=== PATIENT | male | born 1950 | race Two or more races ===

== ENCOUNTER → 2023-11-29 | Outpatient (CLI) | payer OTHER ==
[2023-11-29 09:32] LABS: Urine Bacteria None Seen /hpf (None Seen)
[2023-11-29 09:58] LABS: Urine Blood TRACE /uL (Negative); Urine Clarity Clear (Clear); Urine Color Yellow (Yellow); Urine Protein, UAD Negative (Negative); Urine Specific Gravity 1.021 (1.001-1.035); Urine Urobilinogen Normal (Negative); Urine WBC 2 /hpf (0 - 3)
[2023-11-29 10:14] LABS: Basophils # (auto) 0 10 ^3/uL (0-0.2); Basophils % (auto) 0.4 % (0.0-2.0); Eosinophils # (auto) 0.2 10 ^3/uL (0-0.8); Eosinophils % (auto) 2.1 % (0.0-7.0); Hematocrit 37.6 % (41.0-53.0); Hemoglobin 12.4 g/dL (13.5-17.5); Lymphocytes % (auto) 11.3 % (10.0-50.0); Mean Corpuscular Hemoglobin 28.4 pg (28.0-32.0); Mean Corpuscular Hgb Conc. 32.9 g/dL (32.0-36.0); Mean Corpuscular Volume 86.4 fL (80.0-100.0); Monocytes # (auto) 0.8 10 ^3/uL (0-1.3); Monocytes % (auto) 9.3 % (0.0-12.0); Neutrophils % (auto) 76.9 % (37.0-80.0); Platelet Count (auto) 524 10^3/uL (140-450); Red Blood Cells 4.35 10^6/uL (4.5-5.90); Red Cell Distribution Width 15.6 % (11.8-14.3)
[2023-11-29 10:26] LABS: Alanine Aminotransferase 10 U/L (7-40); Albumin 3.8 g/dL (3.2-4.8); Alkaline Phosphatase 73 U/L (46-116); Anion Gap 2 (5-15); Aspartate Aminotransferase 9 U/L (13-40); BUN/Creatinine Ratio 15.4 (10.0-20.0); Blood Urea Nitrogen 14 mg/dL (9-23); Calcium 9.2 mg/dL (8.7-10.4); Carbon Dioxide 29 mmol/L (20-30); Chloride 105 mmol/L (98-107); Cholesterol 122 mg/dL (< 200); Glucose 110 mg/dL (74-106); HDL Cholesterol 32 mg/dL (40-59); LDL Cholesterol 82 mg/dL (< 100); Magnesium 2.1 mg/dL (1.6-2.6); Potassium 4.4 mmol/L (3.5-5.1); Sodium 136 mmol/L (136-145); Triglycerides 55 mg/dL (< 150)
[2023-11-29 10:27] LABS: Bilirubin, Total 0.5 mg/dL (0.2-1.0); Total Protein 6.9 g/dL (5.7-8.2)
[2023-11-29 10:48] LABS: Prostate Specific Antigen 10.58 ng/mL (0.0-4.0)
[2023-11-29 10:51] LABS: Folate (Folic Acid) 17.6 ng/mL (>5.38)
[2023-11-29 11:10] LABS: Uric Acid 5.2 mg/dL (3.7-9.2)
== END | disposition home or self-care (01) ==
LOC: LAB 09:12
PROVIDERS: ATTEND Internal Medicine
DX: R73.09 Other abnormal glucose (principal); R97.20 Elevated prostate specific antigen [PSA]
CPT/HCPCS: 36415; 80053; 80061; 81001; 82306; 82607; 82746; 83036; 83735; 84153; 84443; 84550; 85025; 87086

== ENCOUNTER 2024-02-07 08:47 | Day surgery (SDC) | payer OTHER ==
[2024-02-02 12:32] LABS: Basophils # (auto) 0.1 10 ^3/uL (0-0.2); Basophils % (auto) 0.6 % (0.0-2.0); Eosinophils # (auto) 0.1 10 ^3/uL (0-0.8); Eosinophils % (auto) 1.2 % (0.0-7.0); Hematocrit 33.2 % (41.0-53.0); Hemoglobin 10.9 g/dL (13.5-17.5); Lymphocytes # (auto) 1.2 10 ^3/uL (0.4-5.4); Lymphocytes % (auto) 12.7 % (10.0-50.0); Mean Corpuscular Hemoglobin 27.9 pg (28.0-32.0); Mean Corpuscular Hgb Conc. 32.9 g/dL (32.0-36.0); Mean Corpuscular Volume 84.9 fL (80.0-100.0); Monocytes # (auto) 0.9 10 ^3/uL (0-1.3); Monocytes % (auto) 9.7 % (0.0-12.0); Neutrophils # (auto) 7.2 10 ^3/uL (1.6-8.6); Neutrophils % (auto) 75.8 % (37.0-80.0); Platelet Count (auto) 591 10^3/uL (140-450); Red Blood Cells 3.91 10^6/uL (4.5-5.90); Red Cell Distribution Width 16.8 % (11.8-14.3); White Blood Cell 9.6 10^3/uL (4.4-10.8)
[2024-02-02 12:48] LABS: INR 1.08 (0.9-1.15); Prothrombin Time 11.4 sec (9.3-11.8)
[2024-02-02 13:22] LABS: Alanine Aminotransferase 23 U/L (7-40); Albumin 3.9 g/dL (3.2-4.8); Alkaline Phosphatase 78 U/L (46-116); Anion Gap 5 (5-15); Aspartate Aminotransferase 20 U/L (13-40); BUN/Creatinine Ratio 15.7 (10.0-20.0); Blood Urea Nitrogen 14 mg/dL (9-23); Calcium 9.2 mg/dL (8.7-10.4); Carbon Dioxide 28 mmol/L (20-31); Chloride 103 mmol/L (98-107); Glucose 96 mg/dL (74-106); Potassium 4.6 mmol/L (3.5-5.1); Sodium 136 mmol/L (136-145)
[2024-02-02 13:23] LABS: Bilirubin, Total 0.3 mg/dL (0.2-1.0); Total Protein 7.5 g/dL (5.7-8.2)
[~2024-02-07] VITALS: Ht 188 cm; Wt 80.7 kg
[~2024-02-07 08:47] MED LIST: PRAZ1CAP2 PO; TAMS-35 PO
[2024-02-07] MEDS ORDERED: SODIUM CHLORIDE LOCK 10 ML ONE (09:39)
[2024-02-07 10:10] VITALS: PULSE 75; RESP 19; O2SAT 99
[2024-02-07] MEDS: fentaNYL CITRATE 100 MCG/2 ML VL ONE (10:11)
[2024-02-07] MEDS: MIDAZOLAM HCL 5 MG/ML-1ML VIAL ONE (10:11)
[2024-02-07 10:35] VITALS: PULSE 72; RESP 22; TEMP 99; O2SAT 100
[2024-02-07 11:00] VITALS: BP 106/56; PULSE 71; RESP 98; O2SAT 100
== END 2024-02-07 11:15 | disposition home or self-care (01) ==
LOC: GI 08:47
PROVIDERS: ATTEND Specialist
DX: D64.9 Anemia, unspecified (principal); D12.4 Benign neoplasm of descending colon; D12.3 Benign neoplasm of transverse colon; K57.30 Diverticulosis of large intestine without perforation or abscess without bleeding; K64.8 Other hemorrhoids; K44.9 Diaphragmatic hernia without obstruction or gangrene; Z79.899 Other long term (current) drug therapy; Z90.89 Acquired absence of other organs; Z98.890 Other specified postprocedural states
CPT/HCPCS: 36415; 45380; 45385; 80053; 85025; 85610; 85730; 88305; J2250; J3010; J7030; 99152

== ENCOUNTER 2024-06-04 12:13 | Inpatient (IN) | payer OTHER ==
[~2024-06-04] VITALS: Ht 188 cm; Wt 75.7 kg
[2024-06-04] MEDS: PANTOPRAZOLE 40 MG/10 ML VIAL INJ IV ONE (12:42)
[2024-06-04] MEDS: ONDANSETRON HCL 4 MG/2 ML VIAL IV ONE (12:42)
[2024-06-04] MEDS: MORPHINE SULFATE 4 MG/ML SYR/VIAL IV ONE (12:43)
[2024-06-04] MEDS: SODIUM CHLORIDE 0.9% 1,000 ML IV ONE ×2 (12:43→21:30)
[2024-06-04 12:56] LABS: Urine Bacteria None Seen /hpf (None Seen)
--- NOTE | 2024-06-04 13:05 | ED.PDOC ---
GI ASSESSMENT HPI Comments 74 y.o male with PMHx of BPH, depression, diverticulitis and perforated ulcer, presents to the ED for a chief complaint of lower abdominal pain that has been ongoing for " a long time" but worsened x 3 days. Patient reports pain is constant, non radiating, and has no alleviating or precipitating factors. Patient had 2 episodes of non bloody emesis today. Patient was seen multiple times for this complaint by PCP and had a colonoscopy done. Patient was then diagnosed with diverticulitis. Patient denies any diarrhea, constipation, fever, chills, dysuria, rectal bleeding, or dysuria. Patient has been taking peptobismol and last normal bowel movement was one day ago. Chief Complaint: Abdominal Pain Time Seen by MD: 12:17 Reviewed Notes: Nurses Notes, Medications, Allergies Allergies: Coded Allergies: NO KNOWN ALLERGIES (Unverified , 02/02/24) Home Meds Reported Medications Prazosin Hcl (Minipres) 1 Mg Cp, 1 MG PO DAILY, CAP 02/02/24 Tamsulosin Hcl (Flomax) 0.4 Mg Cap, 0.4 MG PO da, CAP 02/02/24 Information Source: Patient Mode of Arrival: Ambulatory Timing: Came on: Gradually Duration: Since onset Quality: Aching Vomitus: Soft Stool: Normal Severity: Moderate Recent: None Recent Hx of: None Pain Location: Suprapubic Modifying Factors: Nothing Associated sign and symptoms: Vomiting, Abdominal Pain Past Medical History PAST MEDICAL HISTORY: Depression Past Medical History (Other): BPH, perforated ulcer, diverticulitis Surgical History (Other): perforated ulcer and colonoscopy Family History Family History: Reviewed,noncontributory to illness Social History Smoker: Non-Smoker Alcohol: Denies ETOH Use Drugs: Denies Drug Use Lives In: Home Constitutional: denies: chills, diaphoresis, fatigue, fever, malaise, sweats, weakness, others EENTM: denies: blurred vision, double vision, ear bleeding, ear discharge, ear drainage, ear pain, ear ringing, eye pain, eye redness, hearing loss, mouth pain, mouth swelling, nasal discharge, nose bleeding, nose congestion, nose pain, photophobia, tearing, throat pain, throat swelling, voice changes, others Respiratory: denies: cough, hemoptysis, orthopnea, SOB at rest, shortness of breath, SOB with excertion, stridor, wheezing, others Cardiovascular: denies: chest pain, dizzy spells, diaphoresis, Dyspnea on exertion, edema, irregular heart beat, left arm pain, lightheadedness, palpitations, PND, syncope, others Gastrointestinal: reports: abdominal pain, vomiting; denies: abdomen distended, blood streaked bowels, constipated, diarrhea, dysphagia, difficulty swallowing, hematemesis, melena, nausea, poor appetite, poor fluid intake, rectal bleeding, rectal pain, others Genitourinary: denies: burning, dysuria, flank pain, frequency, hematuria, incontinence, penile discharge, penile sore, pain, testicle pain, testicle swelling, urgency, others Neurological: denies: dizziness, fainting, headache, left sided numbness, left sided weakness, numbness, paresthesia, pre-existing deficit, right sided n umbness, right sided weakness, seizure, speech problems, tingling, tremors, weakness, others Musculoskeletal: denies: back pain, gout, joint pain, joint swelling, muscle pain, muscle stiffness, neck pain, others Integumetry: denies: bruises, change in color, change in hair/nails, dryness, laceration, lesions, lumps, rash, wounds, others Allergic/Immunocompromised: denies: Difficulty Healing, Frequent Infections, Hives, Itching, others Hematologic/Lymphatic: denies: anemia, blood clots, easy bleeding, easy bruising, swollen glands, others Endocrine: denies: excessive hunger, excessive sweating, excessive thirst, excessive urination, flushing, intolerance to cold, intolerance to heat, unexplained weight gain, unexplained weight loss, others Psychiatric: denies: anxiety, bipolar disorder, depression, hopeless, panic disorder, schizophrenia, sleepless, suicidal, others All Other Systems: Reviewed and Negative Physical Exam General Appearance: No Apparent Distress HEENT: Other (Pupils and face symmetric. Moist mucous membranes.) Neck: Full Range of Motion, Normal Inspection Respiratory: Lungs Clear, No Accessory Muscle Use, No Respiratory Distress, Normal Breath Sounds Cardiovascular: No Edema, No JVD, Regular Rate/Rhythm Breast Exam: Deferred Gastrointestinal: LLQ, Mass (Large ventral hernia which is soft and partially reducible. This area is nontender.), RLQ, Soft, Suprapubic, Tenderness Genitalia: Deferred Pelvic: Deferred Rectal: Deferred Extremities: Normal inspection, Normal range of motion, Non-tender, No pedal edema Neurologic: Alert (Oriented x4), Normal Affect, Normal Mood, Other (Ambulatory without difficulty. No gross focal deficit.) Cerebellar Function: NOT DONE Reflexes: NOT DONE Skin: Dry, Normal Color, Warm Lymphatic: NOT DONE Was a procedure done? Was a procedure done?: No GI differential Dx Differential Diagnosis: Bowel Obstruction, Diverticular disease, Hernia, Ischemic Bowel, UTI, Dehydration, Electrolyte Imbalance, Food Poisoning, Bacterial, Viral, Hypovolemia, Impaction, Stress Ulcer, Kidney Stone X-Ray, Labs, Meds, VS Vital Signs Date Time Temp Pulse Resp B/P (MAP) Pulse Ox O2 Delivery O2 Flow Rate FiO2 06/04/24 17:05 98.6 91 16 106/58 (74) 97 98.6 06/04/24 13:13 79 18 142/70 06/04/24 12:50 Room Air* 0 21 06/04/24 12:49 98.9 95 18 100/55 (70) 98 98.9 06/04/24 12:43 95 18 100/55 06/04/24 12:26 98.9 105 18 98/55 (69) 94 Lab Test 06/04/24 12:58 06/04/24 12:24 Range/Units White Blood Count 13.8 H 4.4-10.8 10^3/uL Red Blood Count 3.37 L 4.5-5.90 10^6/uL Hemoglobin 8.7 L 13.5-17.5 g/dL Hematocrit 26.9 L 41.0-53.0 % Mean Corpuscular Volume 80.0 80.0-100.0 fL Mean Corpuscular Hemoglobin 25.8 L 28.0-32.0 pg Mean Corpuscular Hemoglobin Concent 32.3 32.0-36.0 g/dL Red Cell Distribution Width 18.6 H 11.8-14.3 % Platelet Count 863 *H 140-450 10^3/uL Mean Platelet Volume 6.4 L 6.9-10.8 fL Neutrophils (%) (Auto) 82.1 H 37.0-80.0 % Lymphocytes (%) (Auto) 7.9 L 10.0-50.0 % Monocytes (%) (Auto) 9.4 0.0-12.0 % Eosinophils (%) (Auto) 0.3 0.0-7.0 % Basophils (%) (Auto) 0.3 0.0-2.0 % Neutrophils # (Auto) 11.3 H 1.6-8.6 10 ^3/uL Lymphocytes # (Auto) 1.1 0.4-5.4 10 ^3/uL Monocytes # (Auto) 1.3 0-1.3 10 ^3/uL Eosinophils # (Auto) 0 0-0.8 10 ^3/uL Basophils # (Auto) 0 0-0.2 10 ^3/uL Nucleated Red Blood Cells 0.0 % Sodium Level 136 136-145 mmol/L Potassium Level 4.5 3.5-5.1 mmol/L Chloride Level 101 98-107 mmol/L Carbon Dioxide Level 28 20-31 mmol/L Anion Gap 7 5-15 Blood Urea Nitrogen 19 9-23 mg/dL Creatinine 0.80 0.700-1.30 mg/dL Glomerular Filtration Rate Calc 92 >90 mL/min BUN/Creatinine Ratio 23.8 H 10.0-20.0 Serum Glucose 107 H 74-106 mg/dL Lactic Acid Level 1.3 0.4-2.0 mmol/L Calcium Level 8.8 8.7-10.4 mg/dL Total Bilirubin 0.3 0.2-1.0 mg/dL Aspartate Amino Transferase (AST) 21 13-40 U/L Alanine Aminotransferase (ALT) 25 7-40 U/L Alkaline Phosphatase 119 H 46-116 U/L Total Protein 6.5 5.7-8.2 g/dL Albumin 3.5 3.2-4.8 g/dL Urine Color Yellow Yellow Urine Clarity Clear Clear Urine pH 6.0 5.0-9.0 Urine Specific [place] 1.022 1.001-1.035 Urine Protein Trace H Negative Urine Ketones Negative Negative Urine Blood Trace H Negative /uL Urine Nitrite Negative Negative Urine Bilirubin Negative Negative Urine Urobilinogen Normal Negative mg/dL Urine Leukocyte Esterase Negative Negative /uL Urine RBC 6 0 - 3 /hpf Urine Microscopic WBC 3 0-3 /HPF Urine Squamous Epithelial Cells None seen <5 /hpf Urine Bacteria None seen None Seen /hpf Urine Mucus Few None Seen Urine Glucose Normal Normal mg/dL Current Medications Medications (Trade) Dose Ordered Sig/Vinnie Route Start Time Stop Time Status Last Admin Sodium Chloride 1,000 ml @ 1,000 mls/hr Q1H ONCE IV 06/04/24 12:30 06/04/24 13:29 DC 06/04/24 12:43 Ondansetron HCl (Zofran) 4 mg ONCE ONCE IV 06/04/24 12:30 06/04/24 12:31 DC 06/04/24 12:42 Morphine Sulfate 4 mg ONCE ONCE IV 06/04/24 12:30 06/04/24 12:31 DC 06/04/24 12:43 Pantoprazole Sodium (Protonix) 40 mg ONCE ONCE IV 06/04/24 12:30 06/04/24 12:31 DC 06/04/24 12:42 [place] [id number] Ph: [phone] DIAGNOSTIC IMAGING Diagnostic Imaging Report : [id number] Signed PATIENT: KARLA CHRISTIANSON ACCT: [id number] UNIT: [id number] : 1950 LOC: ER ROOM / BED: / AGE / SEX: 74 / M ADM STATUS: REG ER SERVICE 1224 ORDERING PHYSICIAN: CAITLIN MOSS MD PROCEDURE(s): ABPL - CT AB PEL WO CON-NO ORAL OR IV REASON: low abd pain h/o diverticulitis ORDER NUMBER(s): [id number], ACCESSION NUMBER(s): [id number] Exam: CT CT AB PEL WO CON-NO ORAL OR IV History: low abd pain h/o diverticulitis Comparison Study: None available at time of dictation. TECHNIQUE: Multidetector CT of the abdomen was performed from lung bases to pubic symphysis. Imaging was performed without IV contrast. Axial, coronal and sagittal multiplanar reformats were obtained from the axial data set by the technologist. Radiation Dose Information: CT Dose: CTDI volume is 7.26 mGy. Dose-length product is 470.45 mGy*cm FINDINGS: Evaluation of solid organs is limited due to lack of intravenous contrast use. Findings: Lung Bases: No acute or significant lung base finding. Normal heart size. No pleural or pericardial effusion. Liver: The liver is normal in size. No focal lesions. Gallbladder and Biliary Tree: Unremarkable Spleen: Unremarkable Pancreas: The pancreas is grossly normal in appearance. Adrenal Glands: Unremarkable Kidneys: 4 mm calculus lower pole left kidney no hydronephrosis. 7 x 5 cm non cystic lobulated abnormality lower pole left kidney can not exclude neoplasm recommend contrast CT of the abdomen and pelvis or renal ultrasound. Bladder: Grossly unremarkable for degree of distention. Bowel: The stomach is grossly normal in appearance. Small bowel and colon are normal in caliber and distribution. The appendix is not visualized; however, no secondary findings of acute appendicitis identified. Ascites: Absent Lymphadenopathy: No mesenteric, retroperitoneal or periportal lymphadenopathy. Abdominal Wall and Mesentery: Unremarkable. Vasculature: The visualized abdominal aorta is normal in size and caliber. Evaluation of abdominal and pelvic vessels is limited due to lack of intravenous contrast. Pelvic Organs: Unremarkable Musculoskeletal: No aggressive focal bony lesions, acute fractures or dislocation. Soft tissues: Unremarkable IMPRESSION: 1. 4 mm nonobstructing calculus lower pole left kidney 2. 7 x 5 cm lobulated NON cystic mass lower pole left kidney recommend contrast CT or renal ultrasound for further evaluation. Findings are worrisome for neoplasm. Radiation optimization: All CT scans at this facility use at least one of these dose optimization techniques: automated exposure control mA and/or kV adjustment per patient size (includes targeted exams where dose is matched to clinical indication) or iterative reconstruction. ATED BY: ALLISON HORNE Jr., DO DICTATED DATE/TIME: 06/04/241404 SIGNED BY: ALLISON HORNE Jr., SIGNED DATE/TIME: 06/04/24 140 CC: X-Ray, Labs, Meds, VS Comment 74-year-old male with a history of BPH, ulcer disease, diverticulitis and depression complaining of lower abdominal pain, nausea and vomiting Vitals remarkable for heart rate 105, BP 98/55 Exam remarkable for lower abdominal tenderness to palpation and a large ventral hernia which is soft and partially reducible and nontender. Rhythm strip independently interpreted by me: Sinus rhythm, rate 105, no ectopy. CT abdomen and pelvis IMPRESSION: 1. 4 mm nonobstructing calculus lower pole left kidney 2. 7 x 5 cm lobulated NON cystic mass lower pole left kidney recommend contrast CT or renal ultrasound for further evaluation. Findings are worrisome for neoplasm. CBC remarkable for WBC 13.8, hemoglobin 8.7, hematocrit 26.9, platelets 863, metabolic panel unremarkable, UA unremarkable Patient treated with the following in the ED: 1 L 0.9 normal saline IV bolus, morphine 4 mg IV, Zofran 4 mg IV, Protonix 40 mg IV On re-evaluation, patient states pain has improved. Vitals were stable. Plan is to admit the patient for further evaluation of the left renal mass and for further evaluation of anemia and thrombocytosis Time of 1ST Reevaluation: 12:59 Reevaluation 1ST: Unchanged Patient Education/Counseling: Diagnosis, Treatment, Prognosis Family Education/Counseling: No Family Present Departure 1 Departure Time of Disposition: 18:47 Impression: Primary Impression: Left renal mass Additional Impressions: Anemia Qualified Codes: D64.9 - Anemia, unspecified Thrombocytosis Disposition: ADMITTED INPATIENT Admit to: Med Surg Condition: Guarded Critical Care Note Critical Care Time?: No Stability Stability form required: No Heart Score Heart Score: Heart Score Response (Comments) Value History N/A 0 EKG N/A 0 Age N/A 0 Risk Factors N/A 0 Troponin N/A 0 Total 0 I personally scribed for CAITLIN MOSS MD ([facility]) on 06/04/24 at 13:05. Electronically submitted by Kayleigh Morris ([facility]). I personally scribed for CAITLIN MOSS MD ([facility]) on 06/04/24 at 15:08. Electronically submitted by Kayleigh Morris ([facility]). CAITLIN MOSS MD Jun 04, 2024 13:05
[2024-06-04 13:21] LABS: Basophils # (auto) 0 10 ^3/uL (0-0.2); Eosinophils # (auto) 0 10 ^3/uL (0-0.8); Eosinophils % (auto) 0.3 % (0.0-7.0); Lymphocytes # (auto) 1.1 10 ^3/uL (0.4-5.4)
[2024-06-04 13:24] LABS: Basophils % (auto) 0.3 % (0.0-2.0); Hematocrit 26.9 % (41.0-53.0); Hemoglobin 8.7 g/dL (13.5-17.5); Lymphocytes % (auto) 7.9 % (10.0-50.0); Mean Corpuscular Hemoglobin 25.8 pg (28.0-32.0); Mean Corpuscular Hgb Conc. 32.3 g/dL (32.0-36.0); Monocytes # (auto) 1.3 10 ^3/uL (0-1.3); Monocytes % (auto) 9.4 % (0.0-12.0); Neutrophils # (auto) 11.3 10 ^3/uL (1.6-8.6); Neutrophils % (auto) 82.1 % (37.0-80.0); Red Blood Cells 3.37 10^6/uL (4.5-5.90); Red Cell Distribution Width 18.6 % (11.8-14.3); White Blood Cell 13.8 10^3/uL (4.4-10.8)
[2024-06-04 13:25] LABS: Platelet Count (auto) 863 10^3/uL (140-450)
[2024-06-04 13:28] LABS: Urine Blood TRACE /uL (Negative); Urine Clarity Clear (Clear); Urine Color Yellow (Yellow); Urine Mucus FEW (None Seen); Urine Protein, UAD TRACE (Negative); Urine Specific Gravity 1.022 (1.001-1.035); Urine Squamous Epithelial Cell None Seen /hpf (<5); Urine Urobilinogen Normal (Negative); Urine WBC 3 /HPF (0-3)
[2024-06-04 13:42] LABS: Alanine Aminotransferase 25 U/L (7-40); Albumin 3.5 g/dL (3.2-4.8); Anion Gap 7 (5-15); Aspartate Aminotransferase 21 U/L (13-40); BUN/Creatinine Ratio 23.8 (10.0-20.0); Blood Urea Nitrogen 19 mg/dL (9-23); Calcium 8.8 mg/dL (8.7-10.4); Carbon Dioxide 28 mmol/L (20-31); Chloride 101 mmol/L (98-107); Potassium 4.5 mmol/L (3.5-5.1); Total Protein 6.5 g/dL (5.7-8.2)
[2024-06-04 13:53] LABS: Alkaline Phosphatase 119 U/L (46-116); Bilirubin, Total 0.3 mg/dL (0.2-1.0); Glucose 107 mg/dL (74-106); Sodium 136 mmol/L (136-145)
--- NOTE | 2024-06-04 14:07 | DVH ---
Exam: CT CT AB PEL WO CON-NO ORAL OR IV History: low abd pain h/o diverticulitis Comparison Study: None available at time of dictation. TECHNIQUE: Multidetector CT of the abdomen was performed from lung bases to pubic symphysis. Imaging was performed without IV contrast. Axial, coronal and sagittal multiplanar reformats were obtained fr om the axial data set by the technologist. Radiation Dose Information: CT Dose: CTDI volume is 7.26 mGy. Dose-length product is 470.45 mGy*cm FINDINGS: Evaluation of solid organs is limited due to lack of intravenous contrast use. Findings: Lung Bases: No acute or significant lung base finding. Normal heart size. No pleural or pericardial effusion. Liver: The liver is normal in size. No focal lesions. Gallbladder and Biliary Tree: Unremarkable Spleen: Unremarkable Pancreas: The pancreas is grossly normal in appearance. Adrenal Glands: Unremarkable Kidneys: 4 mm calculus lower pole left kidney no hydronephrosis. 7 x 5 cm non cystic lobulated abnor mality lower pole left kidney can not exclude neoplasm recommend contrast CT of the abdomen and pelvi s or renal ultrasound. Bladder: Grossly unremarkable for degree of distention. Bowel: The stomach is grossly normal in appearance. Small bowel and colon are normal in caliber and d istribution. The appendix is not visualized; however, no secondary findings of acute appendicitis id entified. Ascites: Absent Lymphadenopathy: No mesenteric, retroperitoneal or periportal lymphadenopathy. Abdominal Wall and Mesentery: Unremarkable. Vasculature: The visualized abdominal aorta is normal in size and caliber. Evaluation of abdominal a nd pelvic vessels is limited due to lack of intravenous contrast. Pelvic Organs: Unremarkable Musculoskeletal: No aggressive focal bony lesions, acute fractures or dislocation. Soft tissues: Unremarkable IMPRESSION: 1. 4 mm nonobstructing calculus lower pole left kidney 2. 7 x 5 cm lobulated NON cystic mass lower pole left kidney recommend contrast CT or renal ultrasoun d for further evaluation. Findings are worrisome for neoplasm. Radiation optimization: All CT scans at this facility use at least one of these dose optimization charity hniques: automated exposure control mA and/or kV adjustment per patient size (includes targeted exam s where dose is matched to clinical indication) or iterative reconstruction.
[2024-06-04 22:45] LABS: Erythrocyte Sedimentation Rate 114 mm/hr (0-20)
[2024-06-04] MEDS: HYDROcodone-ACET 10/325MG TAB PO SCH (22:58)
[2024-06-04] MEDS: TAMSULOSIN HYDROCHLORIDE 0.4 MG CAP PO SCH (22:59)
[2024-06-04] MEDS: CIPROFLOXACIN 400MG/200ML 200 ML IV SCH (23:00)
[2024-06-05] VITALS (7 sets, daily range): BP systolic 91–106; BP diastolic 53–64; PULSE 68–91; RESP 14–19; TEMP 97.9–99.7; O2SAT 92–95
[2024-06-05] MEDS: metroNIDAZOLE 500MG/100ML 100 ML IV SCH (00:12)
[2024-06-05] MEDS: CIPROFLOXACIN 400MG/200ML 200 ML IV ONE (00:12)
[2024-06-05] MEDS: SODIUM CHLORIDE 0.9% 1,000 ML IV SCH (00:12)
--- NOTE | 2024-06-05 00:31 | DVHHPRES ---
History of Present Illness Resident Creating Document: SUSAN WEN RESIDENT Reason for Visit: abdominal pain History of Present Illness A 74y old male with PMHx BPH, HTN? who came to the ED due to abdominal pain, the pain is generalized in the lower abdomen and he is being having this pain since jan 2024 after a colonoscopy, but it got worse 2 days before. Pt states that he also had episode of vomiting. He states that he also has being losing 40 pounds for the past year. Denies bloody stools, denies diarrhea, constipation, fever, chills, dysuria or dysuria Home meds: tamsulosin and prazosin Pt has history of laparotomy due to perforated peptic ulcer Pt smoked for 30y and quit 30y ago 1 pack a day Denies any other drugs Review of Systems Constitutional: No: Fever, Chills, Sweats, Weakness, Malaise, Other Eyes: No: Pain, Vision change, Conjunctivae inflammation, Eyelid inflammation, Other, Redness ENT: No: Ear pain, Ear discharge, Nose pain, Nose discharge, Nose congestion, Mouth pain, Mouth swelling, Throat pain, Throat swelling, Other Respiratory: No: Cough, Dry, Shortness of breath, SOB with excertion, Wheezing, Hemoptysis, Pleuritic Pain, Sputum, Wheezing, Other Cardiovascular: No: Chest Pain, Palpitations, Orthopnea, Paroxysmal Noc. Dyspnea, Edema, Lt Headedness, Other Gastrointestinal: No: Nausea, Vomiting, Abdominal Pain, Diarrhea, Constipation, Melena, Hematochezia, Other Genitourinary: No Dysuria, No Frequency, No Incontinence, No Hematuria, No Retention, No Other Musculoskeletal: No: other, neck pain, shoulder pain, arm pain, back pain, hand pain, leg pain, foot pain Skin: No: Rash, Lesions, Jaundice, Bruising, Other Allergies: Coded Allergies: NO KNOWN ALLERGIES (Unverified , 02/02/24) Medications Current Medications Medications Dose Ordered Sig/Vinnie Route Start Time Stop Time Status Last Admin Dose Admin Acetaminophen/ Hydrocodone Bitart 1 tab TID PO 06/04/24 22:00 06/04/24 22:58 1 TAB Morphine Sulfate 1 mg TID PRN IV 06/04/24 21:30 Tamsulosin HCl 0.4 mg DAILY PO 06/04/24 21:30 06/04/24 22:59 0.4 MG Sodium Chloride 1,000 ml @ 100 mls/hr Q10H IV 06/04/24 23:00 Ciprofloxacin 200 ml @ 200 mls/hr Q12HR IV 06/04/24 23:00 UNV Metronidazole 100 ml @ 100 mls/hr Q8HR IV 06/04/24 23:00 Exam Vital Signs Vital Signs Date Time Temp Pulse Resp B/P (MAP) Pulse Ox O2 Delivery O2 Flow Rate FiO2 06/04/24 21:55 98.1 91 18 110/54 (72) 96 98.1 06/04/24 19:19 Room Air 06/04/24 12:50 0 21 General Appearance: Alert, Oriented X3, Cooperative, mild distress HEENT: Atraumatic, PERRLA, EOMI, Other (pale) Respiratory: Clear to auscultation Cardiovascular: Regular rate, Normal S1 Abdominal: Normal bowel sounds, Other (ventral hernia ) Extremities: No clubbing, No cyanosis Skin: No rashes, No breakdown Neuro: Normal gait, Normal speech Psych/Mental Status: Mental status NL, Mood NL Labs/Xrays Labs Test 06/04/24 21:36 06/04/24 12:58 06/04/24 12:24 Range/Units Erythrocyte Sedimentation Rate 114 H 0-20 mm/hr C-Reactive Protein High Sensitivity > 20.00 H <1.0 mg/dL White Blood Count 13.8 H 4.4-10.8 10^3/uL Red Blood Count 3.37 L 4.5-5.90 10^6/uL Hemoglobin 8.7 L 13.5-17.5 g/dL Hematocrit 26.9 L 41.0-53.0 % Mean Corpuscular Volume 80.0 80.0-100.0 fL Mean Corpuscular Hemoglobin 25.8 L 28.0-32.0 pg Mean Corpuscular Hemoglobin Concent 32.3 32.0-36.0 g/dL Red Cell Distribution Width 18.6 H 11.8-14.3 % Platelet Count 863 *H 140-450 10^3/uL Mean Platelet Volume 6.4 L 6.9-10.8 fL Neutrophils (%) (Auto) 82.1 H 37.0-80.0 % Lymphocytes (%) (Auto) 7.9 L 10.0-50.0 % Monocytes (%) (Auto) 9.4 0.0-12.0 % Eosinophils (%) (Auto) 0.3 0.0-7.0 % Basophils (%) (Auto) 0.3 0.0-2.0 % Neutrophils # (Auto) 11.3 H 1.6-8.6 10 ^3/uL Lymphocytes # (Auto) 1.1 0.4-5.4 10 ^3/uL Monocytes # (Auto) 1.3 0-1.3 10 ^3/uL Eosinophils # (Auto) 0 0-0.8 10 ^3/uL Basophils # (Auto) 0 0-0.2 10 ^3/uL Nucleated Red Blood Cells 0.0 % Sodium Level 136 136-145 mmol/L Potassium Level 4.5 3.5-5.1 mmol/L Chloride Level 101 98-107 mmol/L Carbon Dioxide Level 28 20-31 mmol/L Anion Gap 7 5-15 Blood Urea Nitrogen 19 9-23 mg/dL Creatinine 0.80 0.700-1.30 mg/dL Glomerular Filtration Rate Calc 92 >90 mL/min BUN/Creatinine Ratio 23.8 H 10.0-20.0 Serum Glucose 107 H 74-106 mg/dL Lactic Acid Level 1.3 0.4-2.0 mmol/L Calcium Level 8.8 8.7-10.4 mg/dL Total Bilirubin 0.3 0.2-1.0 mg/dL Aspartate Amino Transferase (AST) 21 13-40 U/L Alanine Aminotransferase (ALT) 25 7-40 U/L Alkaline Phosphatase 119 H 46-116 U/L Total Protein 6.5 5.7-8.2 g/dL Albumin 3.5 3.2-4.8 g/dL Urine Color Yellow Yellow Urine Clarity Clear Clear Urine pH 6.0 5.0-9.0 Urine Specific [place] 1.022 1.001-1.035 Urine Protein Trace H Negative Urine Ketones Negative Negative Urine Blood Trace H Negative /uL Urine Nitrite Negative Negative Urine Bilirubin Negative Negative Urine Urobilinogen Normal Negative mg/dL Urine Leukocyte Esterase Negative Negative /uL Urine RBC 6 0 - 3 /hpf Urine Microscopic WBC 3 0-3 /HPF Urine Squamous Epithelial Cells None seen <5 /hpf Urine Bacteria None seen None Seen /hpf Urine Mucus Few None Seen Urine Glucose Normal Normal mg/dL Assessment/Plan Assessment/Plan #Sepsis? #Rule out renal neoplasm #7 x 5 cm lobulated NON cystic mass lower pole left kidney #4 mm nonobstructing calculus lower pole left kidney #Leukocytosis #Anemia #Thrombocytosis Admit Med Surg Regular diet/ npo tomorrow for MRI MRI abdomen/pelvis w/o contrast Tumor markers EPO levels Iron panel Panculture Urology consult due to possible renal neoplasm AB: cipro + metronidazole NS 100 cc/h Pain management Flomax 0.4 mg daily Case discussed with Dr Lobo Time spent on care 23 min Plan discussed with: Patient, Other (rn) My Orders Orders - SUSAN WEN Procedure Category Date Status Time Admit ADMIT 06/04/24 Transmitted 21:15 Erythropoietin LAB 06/04/24 In Process 21:17 Carcinoembryonic LAB 06/04/24 In Process Antigen 21:17 Afp Serum Tumor Marker LAB 06/04/24 In Process 21:17 Npo After Midnight DIET 06/05/24 Transmitted Breakfast Hydrocodone-Acet PHA 06/04/24 In Process 10/325mg Tab ([place] 22:00 Morphine Sulfate PHA 06/04/24 In Process Injection 21:30 Tamsulosin PHA 06/04/24 In Process Hydrochloride (Flomax) 21:30 [place] Stain Slide LAB 06/04/24 In Process 21:22 * Urology Consult CONS 06/04/24 Transmitted 22:47 Mri Abd & Plevis W/Wo MRI 06/04/24 Logged Cont 22:47 Sodium Chloride 0.9% PHA 06/04/24 In Process 23:00 Ciprofloxacin PHA 06/04/24 Pending 400mg/200ml (Cipro Iv) 23:00 Metronidazole PHA 06/04/24 In Process 500mg/100ml (Flagyl 23:00 Blood Culture AJAY 06/04/24 In Process 22:54 Stool Bacterial AJAY 06/04/24 Uncollected Culture 22:54 Complete Blood Count LAB 06/06/24 Verified 04:00 Comprehensive LAB 06/06/24 Verified Metabolic Panel 04:00 Date of Service: Jun 04, 2024 Billing Provider: DAKOTA LOBO MD Common Visit Codes: 90585-[id number] INP/OBS CARE (HIGH) Secondary Visit Codes: [id number] CARE PLAN 30 MINUTES SUSAN WEN RESIDENT Jun 05, 2024 00:31 DAKOTA LOBO MD Jun 05, 2024 10:15
[2024-06-05] MEDS: MORPHINE SULFATE INJ 2 MG/ml SYRG IV PRN (01:11)
[2024-06-05] MEDS ORDERED: TAMS1CAP25 PO (05:13)
[2024-06-05] MEDS ORDERED: PRAZ1CAP2 PO (05:13)
[2024-06-05 07:53] LABS: % Iron Saturation 9.7 % (20-55)
--- NOTE | 2024-06-05 09:15 | DVHPNRES ---
Progress Note Date Seen: Jun 05, 2024 Resident Creating Document: LYNNE TRUONG RESIDENT Medical Necessity Reason Pt with a Central, PICC or Fol: No Subjective Review of Systems Patient is a 74-year-old male with past medical history of BPH, diverticulosis, perforated gastric ulcer requiring emergency surgery, abdominal wall hernia, who came in due to abdominal pain. According to the patient, he has been having abdominal pain off and on for the past 1 year, however, his abdominal pain worsened over the last 2 days which is what prompted this visit to the hospital. Patient localizes the pain to the left lower abdomen, intermittent, sharp and dull, 10/10 when present. Patient notes no exacerbating factors, per patient Pepto-Bismol and his peppermint supplements reduce the pain transiently. Current pain was also accompanied with [address] abdomen pelvis showed a 4 mm nonobstructing calculus in the lower pole of left kidney. 7 x 5 cm lobulated non cystic mass in the lower pole of left kidney concerning for neoplasm. Past surgical history: Emergent laparotomy, tonsillectomy Home medications: Prazosin, tamsulosin Past Hospitalization: Denies Social & Personal history: Patient lives with family. Quit smoking 30 years ago, prior to that was smoking 1 pack per day for 25 years. Denies using alcohol. Uses marijuana occasionally, denies using any other drugs. Allergies: Denies Patient seen and examined at bedside. Patient is alert and oriented to time, place person and responding to all questions. General: Reports unintentional weight loss of 40 lb in the past 12 months, fatigue Eyes: No Pain, No Vision change, No Conjunctivae inflammation, No Eyelid inflammation, No Other, No Redness ENT: No Ear pain, No Ear discharge, No Nose pain, No Nose discharge, No Nose congestion, No Mouth pain, No Mouth swelling, No Throat pain, No Throat swelling, No Other Cardiovascular: No Chest Pain, No Palpitations, No Orthopnea, No Paroxysmal No Dyspnea, No Edema, No Lt Headedness, No Other Respiratory: No Cough, No Dry, No Shortness of breath, No SOB with exertion, No Wheezing, No Hemoptysis, No Pleuritic Pain, No Sputum, No Other Gastrointestinal: No Nausea, Vomiting, Abdominal Pain, No Diarrhea, No Constipation, No Melena, No Hematochezia, No Other Genitourinary: No Dysuria, No Frequency, No Incontinence, No Hematuria, No Retention, No Other Musculoskeletal: No other, No neck pain, No shoulder pain, No arm pain, No back pain, No hand pain, No leg pain, No foot pain Skin: No Rash, No Lesions, No Jaundice, No Bruising, No Other Objective vital signs Vital Sign Date Time Temp Pulse Resp B/P (MAP) Pulse Ox O2 Delivery O2 Flow Rate FiO2 06/05/24 05:00 68 14 106/61 06/05/24 05:00 97.9 94 97.9 06/05/24 01:39 Room Air* 0 21 Total Intake and Output 06/04/24 06/04/24 06/05/24 15:00 23:00 07:00 Intake Total 1000 ml 1300 ml Balance 1000 ml 1300 ml medications Current Medications Medications Dose Ordered Sig/Vinnie Route Start Time Stop Time Status Last Admin Dose Admin Acetaminophen/ Hydrocodone Bitart 1 tab TID PO 06/04/24 22:00 06/04/24 22:58 1 TAB Morphine Sulfate 1 mg TID PRN IV 06/04/24 21:30 06/05/24 01:11 1 MG Tamsulosin HCl 0.4 mg DAILY PO 06/04/24 21:30 06/04/24 22:59 0.4 MG Sodium Chloride 1,000 ml @ 100 mls/hr Q10H IV 06/04/24 23:00 06/05/24 00:12 100 MLS/HR Ciprofloxacin 200 ml @ 200 mls/hr Q12HR IV 06/04/24 23:00 Metronidazole 100 ml @ 100 mls/hr Q8HR IV 06/04/24 23:00 06/05/24 05:02 100 MLS/HR Pantoprazole Sodium 40 mg DAILY@0600 PO 06/06/24 06:00 Examination General Appearance: Cooperative. Well developed. Well nourished. NAD Head Exam: Normal inspection Neck Exam: Normal inspection. Non-tender. Normal alignment Pulmonary/Respiratory: Chest non-tender. Clear bilateral breath sounds, no crackles, no wheezing. Cardiovascular/Chest: Regular rate and rhythm. No murmurs. No JVD. Peripheral Pulses: 2+ Radial (R). 2+ Radial (L). 2+ Pedal (R). 2+ Pedal (L) Abdominal Exam: Normal bowel sounds. Soft. Epigastric hernia, reducible and nontender, no visible veins, Nontender. No hepatospenomegaly. No masses Lower extremities: 1+ lower extremity edema Neuro/Mental Status: A&O x4. Coherent. Thoughts/Psych: Normal thought pattern. Appropriate mood and affect. Good judgement and insight Skin Exam: Normal inspection. Normal color. Warm. 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 Sepsis due to above - CT abdomen pelvis: 4 mm nonobstructing calculus lower pole left kidney. 7 x 5 cm lobulated NON cystic mass lower pole left kidney recommend contrast CT or renal ultrasound for further evaluation. Findings are worrisome for neoplasm. - CXR: No acute cardiopulmonary disease - UA: Trace protein, trace blood, urine RBC 6, urine microscopic WBC 3, negative nitrites and leukocyte esterase, no bacteria seen - IV NS 2 L bolus followed by IV NS at 100 cc/hour - IV ciprofloxacin, IV metronidazole - Giltner 10 t.i.d. - urology on board - ordered MRI abdomen and pelvis with and without contrast: Suspicious left renal mass as described above, suspected renal cell carcinoma. Bulky retroperitoneal lymphadenopathy, suspected metastatic disease given the findings in the left kidney. Anemia, likely of chronic disease: MCV 80 - monitor History of benign prostatic hyperplasia - ordered serum PSA - tamsulosin 0.4 mg p.o. daily PUD prophylaxis: protonix 40mg Goals of care: Full code, discussed for >16 minutes on 06/05/2024 Plan discussed with patient Plan discussed with Dr. Duke Plan discussed with: Patient, Other (RN) Date of Service: Jun 05, 2024 Billing Provider: VALE DUKE MD Common Visit Codes: [id number] INP/OBS CARE(HIGH) LYNNE TRUONG RESIDENT Jun 05, 2024 09:15 VALE DUKE MD Jun 12, 2024 11:39
--- NOTE | 2024-06-05 09:35 | DVH ---
Procedure: XY CHEST XRAY 1 VIEW 06/05/2024 08:28 AM Indication: Sepsis Comparison: None TECHNIQUE: XY CHEST XRAY 1 VIEW FINDINGS: Medical devices: None. Cardiomediastinal: The heart is normal in size. Pulmonary vasculature is within normal limits. Athero sclerotic calcification of the aortic arch noted. Lungs: No focal pulmonary opacity is seen. The costophrenic angles are clear. No pneumothorax. Bones/soft tissues: No acute abnormality is noted. IMPRESSION: 1. No acute cardiopulmonary disease.
[2024-06-05] MEDS: PANTOPRAZOLE 40 MG TAB PO ONE (09:39)
--- NOTE | 2024-06-05 10:50 | DVHINCON2 ---
Date of service: Jun 05, 2024 Referring Physician Hospitalist Reason for Consultation renal mass History of Present Illness History Source: Patient, RN Notes, MD Notes Exam Limitations: No limitations HPI 74 year old male with PMH significant for BPH (66gm), diverticulitis, perforated peptic ulcer requiring laparotomy who presents with worsening lower abdominal pain over the past week with associated vomiting. Workup revelaed iron deficiency anemia, leukocytosis, thrombocytosis and and elevated ESR. Non contrast CT demonstrated a 7x5 cm non cystic lobulated lower pole left kidney mass. MRI is pending. Patient reports 40lbs of unintended weight loss over the past year. PSA and tumor markers is pending. He has a history of smoking 1 pack a day for 30 years but quit 30 years ago. Home Meds Reported Medications Prazosin Hcl (Minipres) 1 Mg Cp, 2 MG PO DAILYP, #30 CAP 06/05/24 Tamsulosin HCl (Tamsulosin Hydrochloride) 0.4 Mg Cap, 0.4 MG PO DAILY, CAP 06/05/24 Discontinued Reported Medications Prazosin Hcl (Minipres) 1 Mg Cp, 1 MG PO DAILY, CAP 02/02/24 Tamsulosin Hcl (Flomax) 0.4 Mg Cap, 0.4 MG PO da, CAP 02/02/24 Past Medical History GI: Diverticulosis, GI bleed, Peptic ulcer disease Renal/: Benign prostatic enlarg. Past Surgical History: Laparotomy Smoker: Quit Alocohol: None Drugs: None Domestic Violence: Neg Review of Systems Gastrointestinal: Nausea, Vomiting, Abdominal Pain H&P Exam Vital Signs Vital Signs Date Time Temp Pulse Resp B/P (MAP) Pulse Ox O2 Delivery O2 Flow Rate FiO2 06/05/24 05:00 68 14 106/61 06/05/24 05:00 97.9 94 97.9 06/05/24 01:39 Room Air* 0 21 Labs/Xrays [address] [address] Ph: [phone] DIAGNOSTIC IMAGING Diagnostic Imaging Report : [id number] Signed PATIENT: KARLA CHRISTIANSON ACCT: [id number] UNIT: [id number] : 1950 LOC: ER ROOM / BED: / AGE / SEX: 74 / M ADM STATUS: REG ER SERVICE 1224 ORDERING PHYSICIAN: CAITLIN MOSS MD PROCEDURE(s): ABPL - CT AB PEL WO CON-NO ORAL OR IV REASON: low abd pain h/o diverticulitis ORDER NUMBER(s): [id number], ACCESSION NUMBER(s): [id number] Exam: CT CT AB PEL WO CON-NO ORAL OR IV History: low abd pain h/o diverticulitis Comparison Study: None available at time of dictation. TECHNIQUE: Multidetector CT of the abdomen was performed from lung bases to pubic symphysis. Imaging was performed without IV contrast. Axial, coronal and sagittal multiplanar reformats were obtained from the axial data set by the technologist. Radiation Dose Information: CT Dose: CTDI volume is 7.26 mGy. Dose-length product is 470.45 mGy*cm FINDINGS: Evaluation of solid organs is limited due to lack of intravenous contrast use. Findings: Lung Bases: No acute or significant lung base finding. Normal heart size. No pleural or pericardial effusion. Liver: The liver is normal in size. No focal lesions. Gallbladder and Biliary Tree: Unremarkable Spleen: Unremarkable Pancreas: The pancreas is grossly normal in appearance. Adrenal Glands: Unremarkable Kidneys: 4 mm calculus lower pole left kidney no hydronephrosis. 7 x 5 cm non cystic lobulated abnormality lower pole left kidney can not exclude neoplasm recommend contrast CT of the abdomen and pelvis or renal ultrasound. Bladder: Grossly unremarkable for degree of distention. Bowel: The stomach is grossly normal in appearance. Small bowel and colon are normal in caliber and distribution. The appendix is not visualized; however, no secondary findings of acute appendicitis identified. Ascites: Absent Lymphadenopathy: No mesenteric, retroperitoneal or periportal lymphadenopathy. Abdominal Wall and Mesentery: Unremarkable. Vasculature: The visualized abdominal aorta is normal in size and caliber. E valuation of abdominal and pelvic vessels is limited due to lack of intravenous contrast. Pelvic Organs: Unremarkable Musculoskeletal: No aggressive focal bony lesions, acute fractures or dislocation. Soft tissues: Unremarkable IMPRESSION: 1. 4 mm nonobstructing calculus lower pole left kidney 2. 7 x 5 cm lobulated NON cystic mass lower pole left kidney recommend contrast CT or renal ultrasound for further evaluation. Findings are worrisome for neoplasm. Radiation optimization: All CT scans at this facility use at least one of these dose optimization techniques: automated exposure control mA and/or kV adjustment per patient size (includes targeted exams where dose is matched to clinical indication) or iterative reconstruction. ATED BY: ALLISON HORNE Jr., DO DICTATED DATE/TIME: 06/04/241404 SIGNED BY: ALLISON HORNE Jr., SIGNED DATE/TIME: 06/04/241404 CC: Labs Test 06/05/24 06:58 06/04/24 21:36 06/04/24 12:58 06/04/24 12:24 Range/Units Iron Level 15 L 65-175 ug/dL Total Iron Binding Capacity 154 L 250-425 ug/dL Percent Iron Saturation 9.7 L 20-55 % Erythrocyte Sedimentation Rate 114 H 0-20 mm/hr C-Reactive Protein High Sensitivity > 20.00 H <1.0 mg/dL White Blood Count 13.8 H 4.4-10.8 10^3/uL Red Blood Count 3.37 L 4.5-5.90 10^6/uL Hemoglobin 8.7 L 13.5-17.5 g/dL Hematocrit 26.9 L 41.0-53.0 % Mean Corpuscular Volume 80.0 80.0-100.0 fL Mean Corpuscular Hemoglobin 25.8 L 28.0-32.0 pg Mean Corpuscular Hemoglobin Concent 32.3 32.0-36.0 g/dL Red Cell Distribution Width 18.6 H 11.8-14.3 % Platelet Count 863 *H 140-450 10^3/uL Mean Platelet Volume 6.4 L 6.9-10.8 fL Neutrophils (%) (Auto) 82.1 H 37.0-80.0 % Lymphocytes (%) (Auto) 7.9 L 10.0-50.0 % Monocytes (%) (Auto) 9.4 0.0-12.0 % Eosinophils (%) (Auto) 0.3 0.0-7.0 % Basophils (%) (Auto) 0.3 0.0-2.0 % Neutrophils # (Auto) 11.3 H 1.6-8.6 10 ^3/uL Lymphocytes # (Auto) 1.1 0.4-5.4 10 ^3/uL Monocytes # (Auto) 1.3 0-1.3 10 ^3/uL Eosinophils # (Auto) 0 0-0.8 10 ^3/uL Basophils # (Auto) 0 0-0.2 10 ^3/uL Nucleated Red Blood Cells 0.0 % Sodium Level 136 136-145 mmol/L Potassium Level 4.5 3.5-5.1 mmol/L Chloride Level 101 98-107 mmol/L Carbon Dioxide Level 28 20-31 mmol/L Anion Gap 7 5-15 Blood Urea Nitrogen 19 9-23 mg/dL Creatinine 0.80 0.700-1.30 mg/dL Glomerular Filtration Rate Calc 92 >90 mL/min BUN/Creatinine Ratio 23.8 H 10.0-20.0 Serum Glucose 107 H 74-106 mg/dL Lactic Acid Level 1.3 0.4-2.0 mmol/L Calcium Level 8.8 8.7-10.4 mg/dL Total Bilirubin 0.3 0.2-1.0 mg/dL Aspartate Amino Transferase (AST) 21 13-40 U/L Alanine Aminotransferase (ALT) 25 7-40 U/L Alkaline Phosphatase 119 H 46-116 U/L Total Protein 6.5 5.7-8.2 g/dL Albumin 3.5 3.2-4.8 g/dL Urine Color Yellow Yellow Urine Clarity Clear Clear Urine pH 6.0 5.0-9.0 Urine Specific [place] 1.022 1.001-1.035 Urine Protein Trace H Negative Urine Ketones Negative Negative Urine Blood Trace H Negative /uL Urine Nitrite Negative Negative Urine Bilirubin Negative Negative Urine Urobilinogen Normal Negative mg/dL Urine Leukocyte Esterase Negative Negative /uL Urine RBC 6 0 - 3 /hpf Urine Microscopic WBC 3 0-3 /HPF Urine Squamous Epithelial Cells None seen <5 /hpf Urine Bacteria None seen None Seen /hpf Urine Mucus Few None Seen Urine Glucose Normal Normal mg/dL Microbiology Date/Time Source Procedure Growth Status 06/04/24 12:24 Voided Urine Urine Culture - Preliminary Resulted Assessment/Plan Problem List: (1) Anemia (2) Thrombocytosis (3) Left renal mass (4) BPH (benign prostatic hyperplasia) Plan 74 yo male with a hx of BPH, prior diverticulitis, perforated ulcer and significant weight loss presenting with lower abdominal pain, iron deficiency anemia, and a newly discovered left renal mass concerning for malignancy. MRI abd/pelvis with and without contrast pending. CT chest for metastatic workup if MRI is concerning/confirms malignancy stone does not need intervention at this time BPH - PSA is pending Plan discussed with: Patient, Other CRISTOFER HURST NP Jun 05, 2024 10:50
[2024-06-05] MEDS ORDERED: GADOTERATE MEG 10 MMOL/20ml INJ (0.5MMOL/ml) IV ONE (13:55)
--- NOTE | 2024-06-05 15:31 | DVH ---
CLINICAL HISTORY: 74 years old, Male; ABNORMAL CT. Left renal mass. TECHNIQUE: Multi sequence multi planar MRI images of the abdomen were obtained 2 and after the uneve ntful administration of 20 mL Kaila scan contrast. COMPARISON: CT dated 06/04/2024. FINDINGS: Corresponding to the abnormality described on recent noncontrast enhanced CT, there is a s olid mass in the posterior aspect of the left kidney involving the lower pole, measuring up to 6.5 x 6.5 x 5.3 cm. Mass demonstrates heterogeneous enhancement hypo enhancing compared to the renal parenc hyma highly suspicious for malignancy. There is a simple cyst along the posterior aspect of the right kidney measuring up to 2.5 cm. There is also bulky lymphadenopathy in the periaortic and interaortoc aval stations with the largest lymph nodes measuring up to 5.5 x 3.4 cm. There are also bulky lymph n odes at the hiatus measuring up to 2.0 x 3.3 cm. The liver, spleen, pancreas, and adrenal glands are unremarkable. No gallstones visualized in the gallbladder. No biliary ductal dilatation. There is mil d mesenteric edema. Diffuse body wall edema / anasarca. There is a fat containing supraumbilical vent ral hernia, also containing a small amount of fluid. IMPRESSION: 1. Suspicious left renal mass as described above, suspected renal cell carcinoma. 2. Bulky retroperitoneal lymphadenopathy, suspected metastatic disease given the findings in the left kidney. 3. Additional findings as detailed above.
[2024-06-06] VITALS (7 sets, daily range): BP systolic 107–128; BP diastolic 61–69; PULSE 58–90; RESP 18–20; TEMP 97.9–98.9; O2SAT 18–95
[2024-06-06] MEDS: PANTOPRAZOLE 40 MG TAB PO SCH (05:28)
[2024-06-06 06:44] LABS: Alanine Aminotransferase 22 U/L (7-40); Alkaline Phosphatase 89 U/L (46-116); Anion Gap 8 (5-15); BUN/Creatinine Ratio 14.9 (10.0-20.0); Blood Urea Nitrogen 13 mg/dL (9-23); Calcium 8.8 mg/dL (8.7-10.4); Carbon Dioxide 25 mmol/L (20-31); Chloride 101 mmol/L (98-107)
[2024-06-06 06:45] LABS: Albumin 3.4 g/dL (3.2-4.8); Bilirubin, Total 0.3 mg/dL (0.2-1.0); Total Protein 6.6 g/dL (5.7-8.2)
[2024-06-06 06:47] LABS: Aspartate Aminotransferase 10 U/L (13-40); Glucose 108 mg/dL (74-106); Sodium 134 mmol/L (136-145)
[2024-06-06 06:51] LABS: Basophils # (auto) 0 10 ^3/uL (0-0.2); Eosinophils # (auto) 0.1 10 ^3/uL (0-0.8); Lymphocytes # (auto) 1.2 10 ^3/uL (0.4-5.4); Monocytes # (auto) 1.1 10 ^3/uL (0-1.3)
[2024-06-06 06:55] LABS: Basophils % (auto) 0.4 % (0.0-2.0); Hematocrit 24.3 % (41.0-53.0); Hemoglobin 7.9 g/dL (13.5-17.5); Lymphocytes % (auto) 11.3 % (10.0-50.0); Mean Corpuscular Hgb Conc. 32.3 g/dL (32.0-36.0); Mean Corpuscular Volume 80.4 fL (80.0-100.0); Monocytes % (auto) 10.5 % (0.0-12.0); Neutrophils # (auto) 8.1 10 ^3/uL (1.6-8.6); Neutrophils % (auto) 76.8 % (37.0-80.0); Platelet Count (auto) 683 10^3/uL (140-450); Red Blood Cells 3.02 10^6/uL (4.5-5.90); Red Cell Distribution Width 17.9 % (11.8-14.3); White Blood Cell 10.6 10^3/uL (4.4-10.8)
[2024-06-06 09:07] LABS: Prostate Specific Antigen 10.6 ng/mL (0.0-4.0)
[2024-06-06 09:07] LABS: AFP Serum Tumor Marker <1.8 ng/mL (0.0-8.4)
[2024-06-06 11:07] LABS: Erythropoietin 22.8 mIU/mL (2.6-18.5)
--- NOTE | 2024-06-06 11:18 | ECG ---
[facility] Test Date: 2024-06-05 Test Time: 11:31:48 Pat Name: KARLA CHRISTIANSON Department: Respiratoy Room: 0251 A Gender: M Operational Risk Manager: : 1950 Requested By: AGA KWONG Order Number: [id number] Reading MD: Roby Shannon Measurements Intervals Scenic Rate: 71 P: 67 OK: 156 QRS: 66 QRSD: 96 T: 62 QT: 403 QTc: 438 Interpretive Statements Sinus rhythm Borderline low voltage, extremity leads Baseline wander in lead(s) V3 Electronically Signed On 06-06-2024 21:33:53 PST by Roby Shannon Please click the below link to view image of tracing.
--- NOTE | 2024-06-06 13:56 | DVH ---
Procedure: CT CHEST WITHOUT CONTRAST Reason for study/Clinical History: metastatsis Comparison Study: None available at time of dictation. Exam Date: 06/06/2024 01:27 PM TECHNIQUE: Multidetector CT of the chest was performed from the lung apices to the upper abdomen with out the use of intravenous contract. Axial, coronal and sagittal multiplanar reformats were performed . Radiation Dose Information: CT Dose: CTDI volume is 6.93 mGy. Dose-length product is 274.91 mGy*cm The dose indicators for CT are the volume Computed Tomography (CT) Dose Index (CTDIvol) and the Dose Length Product (DLP), and are measured in units of mGy and mGy-cm, respectively. These indicators are not patient dose, but values generated from the CT scanner acquisition factors. The report includes radiation exposure data for exposures received during this examination. FINDINGS: Lower neck: 3.3 cm soft-tissue lesion associated with the mid esophagus. Lungs: Mild centrilobular emphysema. No suspicious pulmonary nodule. No focal consolidation. Heart/Vascular Structures: Cardiomegaly. Coronary artery calcifications. Vascular calcifications of t he aorta. Mild to moderate pericardial effusion. Lymph Nodes: Indeterminate subcentimeter bilateral axillary and mediastinal lymph nodes; possibly dagoberto ctive. Pleura: Trace left pleural effusion. Musculoskeletal: No acute osseous abnormality. Soft tissues: Normal. Upper abdomen: Limited portions of the upper abdomen are unremarkable. IMPRESSION: 3.3 cm soft-tissue mass lesion associated with the midesophagus. Differential considerations could in clude esophageal neoplasm. Indeterminate subcentimeter short axis mediastinal lymph nodes and bilateral axillary lymph nodes ; p ossibly reactive. No suspicious pulmonary nodules. [id number] pericardial effusion. Radiation optimization: All CT scans at this facility use at least one of these dose optimization charity hniques: automated exposure control mA and/or kV adjustment per patient size (includes targeted exam s where dose is matched to clinical indication) or iterative reconstruction.
[2024-06-06 14:06] LABS: PSA Free 0.64 ng/mL
[2024-06-06] MEDS ORDERED: MET500T PO (14:33)
[2024-06-06] MEDS ORDERED: CIPR500T4 PO (14:33)
--- NOTE | 2024-06-06 15:46 | DVHPNRES ---
Progress Note Date Seen: Jun 06, 2024 Resident Creating Document: LYNNE TRUONG RESIDENT Medical Necessity Reason Pt with a Central, PICC or Fol: No Subjective Review of Systems Patient is a 74-year-old male with past medical history of BPH, diverticulosis, perforated gastric ulcer requiring emergency surgery, abdominal wall hernia, who came in due to abdominal pain. According to the patient, he has been having abdominal pain off and on for the past 1 year, however, his abdominal pain worsened over the last 2 days which is what prompted this visit to the hospital. Patient localizes the pain to the left lower abdomen, intermittent, sharp and dull, 10/10 when present. Patient notes no exacerbating factors, per patient Pepto-Bismol and his peppermint supplements reduce the pain transiently. Current pain was also accompanied with [address] abdomen pelvis showed a 4 mm nonobstructing calculus in the lower pole of left kidney. 7 x 5 cm lobulated non cystic mass in the lower pole of left kidney concerning for neoplasm. Past surgical history: Emergent laparotomy, tonsillectomy Home medications: Prazosin, tamsulosin Past Hospitalization: Denies Social & Personal history: Patient lives with family. Quit smoking 30 years ago, prior to that was smoking 1 pack per day for 25 years. Denies using alcohol. Uses marijuana occasionally, denies using any other drugs. Allergies: Denies Patient seen and examined at bedside. Patient is alert and oriented to time, place person and responding to all questions. Objective vital signs Vital Sign Date Time Temp Pulse Resp B/P (MAP) Pulse Ox O2 Delivery O2 Flow Rate FiO2 06/06/24 12:21 98.5 82 18 118/61 (80) 94 98.5 06/06/24 08:20 Room Air* 0 21 Total Intake and Output 06/05/24 06/05/24 06/06/24 15:00 23:00 07:00 Intake Total 300 ml 640 ml 2000 ml Balance 300 ml 640 ml 2000 ml medications Current Medications Medications Dose Ordered Sig/Vinnie Route Start Time Stop Time Status Last Admin Dose Admin Acetaminophen/ Hydrocodone Bitart 1 tab TID PO 06/04/24 22:00 06/06/24 14:12 1 TAB Morphine Sulfate 1 mg TID PRN IV 06/04/24 21:30 06/06/24 01:00 1 MG Tamsulosin HCl 0.4 mg DAILY PO 06/04/24 21:30 06/06/24 11:15 0.4 MG Sodium Chloride 1,000 ml @ 100 mls/hr Q10H IV 06/04/24 23:00 06/05/24 00:12 100 MLS/HR Ciprofloxacin 200 ml @ 200 mls/hr Q12HR IV 06/04/24 23:00 06/06/24 11:09 200 MLS/HR Metronidazole 100 ml @ 100 mls/hr Q8HR IV 06/04/24 23:00 06/06/24 14:13 100 MLS/HR Pantoprazole Sodium 40 mg DAILY@0600 PO 06/06/24 06:00 06/06/24 05:28 40 MG Examination General Appearance: Cooperative. Well developed. Well nourished. NAD Head Exam: Normal inspection Neck Exam: Normal inspection. Non-tender. Normal alignment Pulmonary/Respiratory: Chest non-tender. Clear bilateral breath sounds, no crackles, no wheezing. Cardiovascular/Chest: Regular rate and rhythm. No murmurs. No JVD. Peripheral Pulses: 2+ Radial (R). 2+ Radial (L). 2+ Pedal (R). 2+ Pedal (L) Abdominal Exam: Normal bowel sounds. Soft. Epigastric hernia, reducible and nontender, no visible veins, Nontender. No hepatospenomegaly. No masses Lower extremities: 1+ lower extremity edema Neuro/Mental Status: A&O x4. Coherent. Thoughts/Psych: Normal thought pattern. Appropriate mood and affect. Good judgement and insight Skin Exam: Normal inspection. Normal color. Warm. Dry laboratory and microbiology Laboratory Tests 06/06/24 05:42 Test 06/06/24 05:42 Range/Units Serum Glucose 108 H 74-106 mg/dL Microbiology Date/Time Source Procedure Growth Status 06/04/24 23:08 Blood Blood Culture - Preliminary NO GROWTH AFTER 24 HOURS OF INCUBATION. 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 Sepsis due to above mild-moderate pericardial effusion - CT abdomen pelvis: 4 mm nonobstructing calculus lower pole left kidney. 7 x 5 cm lobulated NON cystic mass lower pole left kidney recommend contrast CT or renal ultrasound for further evaluation. Findings are worrisome for neoplasm. - CXR: No acute cardiopulmonary disease - UA: Trace protein, trace blood, urine RBC 6, urine microscopic WBC 3, negative nitrites and leukocyte esterase, no bacteria seen - IV NS 2 L bolus followed by IV NS at 100 cc/hour - IV ciprofloxacin, IV metronidazole - [place] 10 t.i.d. - urology on board - ordered MRI abdomen and pelvis with and without contrast: Suspicious left renal mass as described above, suspected renal cell carcinoma. Bulky retroperitoneal lymphadenopathy, suspected metastatic disease given the findings in the left kidney. - ordered MRI head w/o contrast Esophageal mass - CT chest: 3.3 cm soft-tissue mass lesion associated with the midesophagus. Differential considerations could include esophageal neoplasm. Indeterminate subcentimeter short axis mediastinal lymph nodes and bilateral axillary lymph nodes ; possibly reactive. No suspicious pulmonary nodules. [id number] pericardial effusion. - GI onboard - possible EGD tomorrow Anemia, likely of chronic disease: MCV 80 - monitor History of benign prostatic hyperplasia - ordered serum PSA - tamsulosin 0.4 mg p.o. daily Anterior abdominal wall hernia, reducible and non-tender - monitor PUD prophylaxis: protonix 40mg Goals of care: Full code, discussed for >16 minutes on 06/05/2024 Plan discussed with patient Plan discussed with Dr. Duke Plan discussed with: Patient, Spouse, Other (RN) My Orders My Orders Orders - LYNNE TRUONG Procedure Category Date Status Time Chest Without Contrast CT 06/06/24 Resulted 13:16 Regular Diet DIET 06/06/24 Transmitted Dinner * [facility] CONS 06/06/24 Transmitted 15:11 Date of Service: Jun 06, 2024 Billing Provider: VALE DUKE MD Common Visit Codes: 23580-BBEWLODICA INP/OBS CARE(HIGH) LYNNE TRUONG Jun 06, 2024 15:46 VALE DUKE MD Jun 12, 2024 11:40
--- NOTE | 2024-06-06 16:14 | DVHCONRES ---
Date Seen: Jun 06, 2024 Resident Creating Document: MARK ANTHONY LEIGH RESIDENT Referring Physician Dr rajan Reason for Consultation Esophageal mass History of Present Illness Patient is 74-year-old male with past medical history of diverticulosis, BPH, perforated gastric ulcer requiring emergent laparotomy, abdominal hernia came to the hospital with a chief complaining of abdominal pain. Abdominal pain is nonspecific, generalized, comes and goes, not associated with food intake, dull in nature. Patient also endorsing that he lose more than 40 lb in last one year, underwent laparoscopic, under multiple scans however in not able to find any appropriate reason for abdominal pain. GI consultation was done given CT scan of chest showed esophageal mass. Patient denied nausea, vomiting, diarrhea, any other symptoms at this point. Past medical history: diverticulosis, BPH, perforated gastric ulcer Home medication: Prazosin, tamsulosin Past Hospitalization: Denies Social & Personal history: Patient lives with family. Quit smoking 30 years ago, prior to that was smoking 1 pack per day for 25 years. Denies using alcohol. Uses marijuana occasionally, denies using any other drugs. Colonoscopy on 02/07/2024 1. Three colon polyps removed 2. Moderate pandiverticulosis 3. 2+ internal hemorrhoids ROS: Complaining of mild on and off abdominal pain. Eyes: No Pain, No Vision change, No Conjunctivae inflammation, No Eyelid inflammation, No Other, No Redness ENT: No Ear pain, No Ear discharge, No Nose pain, No Nose discharge, No Nose congestion, No Mouth pain, No Mouth swelling, No Throat pain, No Throat swelling, No Other Cardiovascular: No Chest Pain, No Palpitations, No Orthopnea, No Paroxysmal Noc. Dyspnea, No Edema, No Lt Headedness, No Other Respiratory: No Cough, No Dry, No Shortness of breath, No SOB with excertion, No Wheezing, No Hemoptysis, No Pleuritic Pain, No Sputum, No Other Gastrointestinal: No Nausea, No Vomiting, No Abdominal Pain, No Diarrhea, No Constipation, No Melena, No Hematochezia, No Other Genitourinary: No Dysuria, No Frequency, No Incontinence, No Hematuria, No Retention, No Other Musculoskeletal: No other, No neck pain, No shoulder pain, No arm pain, No back pain, No hand pain, No leg pain, No foot pain Skin: No Rash, No Lesions, No Jaundice, No Bruising, No Other Allergies: Coded Allergies: NO KNOWN ALLERGIES (Unverified , 02/02/24) Home Meds Active Scripts Metronidazole (Metronidazole) 500 Mg Tab, 500 MG PO TID for 5 Days, #15 TAB Prov:LYNNE TRUONG RESIDENT 06/06/24 Ciprofloxacin Hcl (Ciprofloxacin Hcl) 500 Mg Tab, 1 TAB PO BID for 5 Days, #10 TAB Prov:LYNNE TRUONG RESIDENT 06/06/24 Reported Medications Prazosin Hcl (Minipres) 1 Mg Cp, 2 MG PO DAILYP, #30 CAP 06/05/24 Tamsulosin HCl (Tamsulosin Hydrochloride) 0.4 Mg Cap, 0.4 MG PO DAILY, CAP 06/05/24 Discontinued Reported Medications Prazosin Hcl (Minipres) 1 Mg Cp, 1 MG PO DAILY, CAP 02/02/24 Tamsulosin Hcl (Flomax) 0.4 Mg Cap, 0.4 MG PO da, CAP 02/02/24 Current Medications Current Medications Medications (Trade) Dose Ordered Sig/Vinnie Route PRN Reason Start Time Stop Time Status Last Admin Pantoprazole Sodium (Protonix Tablet) 40 mg DAILY@0600 PO 06/06/24 06:00 06/06/24 05:28 Vital Signs Vital Signs Date Time Temp Pulse Resp B/P (MAP) Pulse Ox O2 Delivery O2 Flow Rate FiO2 06/06/24 12:21 98.5 82 18 118/61 (80) 94 98.5 06/06/24 08:20 Room Air* 0 21 Physical Exam General Appearance: Cooperative. Well developed. Well nourished. NAD Head Exam: Normal inspection Neck Exam: Normal inspection. Non-tender. Normal alignment Pulmonary/Respiratory: Chest non-tender. Clear bilateral breath sounds Cardiovascular/Chest: Regular rate and rhythm. No murmurs. No JVD. Peripheral Pulses: 2+ Radial (R). 2+ Radial (L). 2+ Pedal (R). 2+ Pedal (L) Abdominal Exam: Normal bowel sounds. Soft. Nontender. No hepatospenomegaly. No masses Ankle Exam: Negative ankle edema Lower extremities: Negative lower extremity edema Neuro/Mental Status: A&O x4. Coherent Thoughts/Psych: Normal thought pattern. Appropriate mood and affect. Good judgement and insight Appearance: In no acute distress Skin Exam: Normal inspection. Normal color. Warm. Dry Labs/Diagnostic Data Labs Test 06/06/24 05:42 06/05/24 06:58 06/04/24 21:36 06/04/24 12:58 Range/Units White Blood Count 10.6 4.4-10.8 10^3/uL Red Blood Count 3.02 L 4.5-5.90 10^6/uL Hemoglobin 7.9 L 13.5-17.5 g/dL Hematocrit 24.3 L 41.0-53.0 % Mean Corpuscular Volume 80.4 80.0-100.0 fL Mean Corpuscular Hemoglobin 26.0 L 28.0-32.0 pg Mean Corpuscular Hemoglobin Concent 32.3 32.0-36.0 g/dL Red Cell Distribution Width 17.9 H 11.8-14.3 % Platelet Count 683 H 140-450 10^3/uL Mean Platelet Volume 6.5 L 6.9-10.8 fL Neutrophils (%) (Auto) 76.8 37.0-80.0 % Lymphocytes (%) (Auto) 11.3 10.0-50.0 % Monocytes (%) (Auto) 10.5 0.0-12.0 % Eosinophils (%) (Auto) 1.0 0.0-7.0 % Basophils (%) (Auto) 0.4 0.0-2.0 % Neutrophils # (Auto) 8.1 1.6-8.6 10 ^3/uL Lymphocytes # (Auto) 1.2 0.4-5.4 10 ^3/uL Monocytes # (Auto) 1.1 0-1.3 10 ^3/uL Eosinophils # (Auto) 0.1 0-0.8 10 ^3/uL Basophils # (Auto) 0 0-0.2 10 ^3/uL Nucleated Red Blood Cells 0.0 % Sodium Level 134 L 136-145 mmol/L Potassium Level 4.0 3.5-5.1 mmol/L Chloride Level 101 98-107 mmol/L Carbon Dioxide Level 25 20-31 mmol/L Anion Gap 8 5-15 Blood Urea Nitrogen 13 9-23 mg/dL Creatinine 0.87 0.700-1.30 mg/dL Glomerular Filtration Rate Calc 89 >90 mL/min BUN/Creatinine Ratio 14.9 10.0-20.0 Serum Glucose 108 H 74-106 mg/dL Calcium Level 8.8 8.7-10.4 mg/dL Total Bilirubin 0.3 0.2-1.0 mg/dL Aspartate Amino Transferase (AST) 10 L 13-40 U/L Alanine Aminotransferase (ALT) 22 7-40 U/L Alkaline Phosphatase 89 46-116 U/L Total Protein 6.6 5.7-8.2 g/dL Albumin 3.4 3.2-4.8 g/dL Iron Level 15 L 65-175 ug/dL Total Iron Binding Capacity 154 L 250-425 ug/dL Percent Iron Saturation 9.7 L 20-55 % Ferritin 737.6 H 22-322 ng/mL Free Prostate Specific Antigen 0.64 N/A ng/mL Percent Free Prostate Specific Ag 6.0 . % Prostate Specific Antigen Total 10.6 H 0.0-4.0 ng/mL Erythrocyte Sedimentation Rate 114 H 0-20 mm/hr Erythropoietin 22.8 H 2.6-18.5 mIU/mL C-Reactive Protein High Sensitivity > 20.00 H <1.0 mg/dL Tumor Marker Alpha Fetoprotein <1.8 0.0-8.4 ng/mL Carcinoembryonic Antigen 1.06 <=5.0 ng/mL Lactic Acid Level 1.3 0.4-2.0 mmol/L Test 06/04/24 12:24 Range/Units Urine Color Yellow Yellow Urine Clarity Clear Clear Urine pH 6.0 5.0-9.0 Urine Specific [place] 1.022 1.001-1.035 Urine Protein Trace H Negative Urine Ketones Negative Negative Urine Blood Trace H Negative /uL Urine Nitrite Negative Negative Urine Bilirubin Negative Negative Urine Urobilinogen Normal Negative mg/dL Urine Leukocyte Esterase Negative Negative /uL Urine RBC 6 0 - 3 /hpf Urine Microscopic WBC 3 0-3 /HPF Urine Squamous Epithelial Cells None seen <5 /hpf Urine Bacteria None seen None Seen /hpf Urine Mucus Few None Seen Urine Glucose Normal Normal mg/dL Microbiology Date/Time Source Procedure Growth Status 06/04/24 23:08 Blood Blood Culture - Preliminary NO GROWTH AFTER 24 HOURS OF INCUBATION. Resulted 06/04/24 12:24 Voided Urine Urine Culture - Final Complete Assessment 3.3 cm soft esophageal mass. Rule out esophageal neoplasm. Reactive mediastinal lymph node. [id number] pericardial effusion Left renal mass Retroperitoneal lymph node Nonobstructing nephrolithiasis Plan/ recommendation Dr. Latif -plan for EGD tomorrow for evaluation esophageal mass. NPO from midnight. Obtain consent. -CT chest:3.3 cm soft-tissue mass lesion associated with the midesophagus. Differential considerations could include esophageal neoplasm. -reviewed tumor marker including CEA: Cea level 1.06. PSA total 10.6. As per patient underwent MRI for prostate which was normal. -continue PUD prophylaxis -rest of the plan as per primary team. Plan discussed with: Patient, Other (RN) MARK ANTHONY LEIGH RESIDENT Jun 06, 2024 16:14
[2024-06-06] MEDS: MELATONIN 5 MG TAB PO SCH (23:46)
[2024-06-06] MEDS: CIPROFLOXACIN 400MG/200ML 200 ML IV SCH (23:46)
[2024-06-07] VITALS (10 sets, daily range): BP systolic 106–127; BP diastolic 54–70; PULSE 68–88; RESP 12–18; TEMP 97.9–98.8; O2SAT 94–99
[2024-06-07 00:58] LABS: Eosinophils # (auto) 0.1 10 ^3/uL (0-0.8); Lymphocytes # (auto) 1.1 10 ^3/uL (0.4-5.4); Mean Corpuscular Volume 80.3 fL (80.0-100.0)
[2024-06-07 01:01] LABS: Chloride 102 mmol/L (98-107); Potassium 3.9 mmol/L (3.5-5.1)
[2024-06-07 01:02] LABS: Anion Gap 7 (5-15); Carbon Dioxide 24 mmol/L (20-31)
[2024-06-07 01:07] LABS: Blood Urea Nitrogen 13 mg/dL (9-23)
[2024-06-07 01:13] LABS: INR 1.33 (0.9-1.15); Partial Thromboplastin Time 49.8 SEC (24.5-34.5); Prothrombin Time 13.7 sec (9.3-11.8)
[2024-06-07 01:14] LABS: Calcium 8.4 mg/dL (8.7-10.4); Glucose 130 mg/dL (74-106); Sodium 133 mmol/L (136-145)
[2024-06-07 01:23] LABS: Basophils # (auto) 0.1 10 ^3/uL (0-0.2); Basophils % (auto) 0.5 % (0.0-2.0); Eosinophils % (auto) 0.7 % (0.0-7.0); Hematocrit 22.2 % (41.0-53.0); Lymphocytes % (auto) 11.2 % (10.0-50.0); Mean Corpuscular Hemoglobin 25.3 pg (28.0-32.0); Mean Corpuscular Hgb Conc. 31.5 g/dL (32.0-36.0); Monocytes # (auto) 1.2 10 ^3/uL (0-1.3); Monocytes % (auto) 11.6 % (0.0-12.0); Neutrophils # (auto) 7.8 10 ^3/uL (1.6-8.6); Nucleated Red Blood Cells % 0.1 %; Platelet Count (auto) 609 10^3/uL (140-450); Red Blood Cells 2.76 10^6/uL (4.5-5.90); Red Cell Distribution Width 17.6 % (11.8-14.3); White Blood Cell 10.2 10^3/uL (4.4-10.8)
[2024-06-07] MEDS ORDERED: GADOTERATE MEG 10 MMOL/20ml INJ (0.5MMOL/ml) IV ONE (09:33)
--- NOTE | 2024-06-07 09:34 | DVH ---
EXAM: MRI BRAIN HEAD WO W CONTRAST HISTORY: R/O METS COMPARISON: None TECHNIQUE: MRI was performed utilizing multiple appropriate imaging planes and pulse sequences. FINDINGS: SUPRATENTORIAL REGION: No evidence for acute ischemia or intracranial hemorrhage. POSTERIOR FOSSA: Unremarkable. BRAINSTEM: Unremarkable. SELLAR/SUPRASELLAR REGION: Unremarkable. VENTRICLES, CISTERNS, SULCI: Age-appropriate. ORBITS: Unremarkable. PARANASAL SINUSES: Diffuse paranasal sinus mucosal thickening noted. MASTOID AIR CELLS: Trace bilateral mastoid effusions. VASCULATURE: Unremarkable. BONES/ SOFT TISSUES: Unremarkable. OTHER: None. IMPRESSION: 1. No acute intracranial process or suspicious lesion identified. No evidence of metastasis. 2. Moderate paranasal sinus disease.
[2024-06-07] MEDS: metroNIDAZOLE 500MG/100ML 100 ML IV SCH (10:15)
[2024-06-07] MEDS ORDERED: MIDAZOLAM HCL 2MG/2ML 2ml VIAL (1mg/ml) ONE (12:50)
[2024-06-07] MEDS ORDERED: fentaNYL CITRATE 100 MCG/2 ML VL ONE (12:50)
[2024-06-07] MEDS: LIDOCAINE VISCOUS 2% 15ML UD ONE (13:10)
[2024-06-07] MEDS ORDERED: DexAMETHasone SOD PHOS 10MG/1ML VIAL INJ ONE (13:24)
[2024-06-07] MEDS ORDERED: PROPOFOL 10 MG/ML 20 ML IV ONE (13:25)
--- NOTE | 2024-06-07 13:31 | DVHOP2 ---
Operative Report DATE OF OPERATION: 06/07/24 PROCEDURE: Upper Endoscopy with biopsy. PREOPERATIVE INDICATION: The patient is a 74 -year-old male undergoing endoscopy for anemia and abnormal finding GI tract imaging suspected esophageal mass POSTOPERATIVE DIAGNOSES: 1. Patient had a 4-5 cm sliding-type hiatal hernia with no significant erosive esophagitis and no esophageal ulcerations or mass noted 2. Mild gastroduodenitis with superficial antral and duodenal erosions 3. Otherwise normal examination up to the 2nd and 3rd part of the duodenal with no active bleeding and good bile drainage PROCEDURE PERFORMED BY: Mando Latif GI NURSE: Arpit SCOPE: Olympus videoendoscope. ASA CLASS: PREOPERATIVE MEDICATIONS: Mac sedation, Dr. Balderrama PROCEDURE IN DETAIL: After obtaining an informed consent, the patient was placed on left lateral decubitus position. The patient was then sedated with the above medications. A bite block was placed between his teeth. The endoscope was then passed through the oropharynx, into the esophagus, and through the stomach and pylorus up to the second and third part of the duodenum. The endoscope was then withdrawn. The 2nd and 3rd part of the duodenal were normal there was good bile drainage. Patient had a prominent ampulla. The duodenal bulb showed minimal duodenitis with some superficial erosions. Duodenal biopsies were obtained The pre-pyloric area and antrum showed minimal gastritis with some erosions. Gastric biopsies were obtained On retroflexion the fundus and cardia were normal. The patient had a 4-5 cm sliding-type hiatal hernia. GE junction biopsies were There was no significant esophagitis or ulcerations. Careful evaluation of the entire esophagus shows no evidence of an intrinsic mass The patient tolerated the procedure well without difficulty. COMPLICATIONS : None SPECIMENS: Duodenal biopsies Gastric biopsies DISPOSITION: Transfer back to the floor Stable PLAN: 1. Await for biopsy result 2. Will place pt on Protonix 40 mg p.o. daily 3. Carafate 1 g p.o. q.h.s. 4. Resume soft mechanical diet 5. Proceed with other workup for his suspected metastatic renal mass which might be the cause of his anemia MANDO LATIF MD Jun 07, 2024 13:31
[2024-06-07] MEDS ORDERED: AZIT500T66 PO (15:54)
[2024-06-07] MEDS: AZITHROMYCIN 250 MG TAB PO ONE (18:25)
--- NOTE | 2024-06-07 19:54 | DVHDSRES ---
Discharge Summary Date of Admission Resident Creating Document: LYNNE TRUONG RESIDENT Jun 04, 2024 at 21:15 Date of Discharge: Jun 06, 2024 Admitting Diagnosis Acute intractable abdominal pain Labs/Diagnostic Data: Laboratory Results Test 06/07/24 00:29 06/06/24 18:59 06/06/24 05:42 06/05/24 06:58 White Blood Count 10.2 10^3/uL (4.4-10.8) Red Blood Count 2.76 10^6/uL (4.5-5.90) Hemoglobin 7.0 g/dL (13.5-17.5) Hematocrit 22.2 % (41.0-53.0) Mean Corpuscular Volume 80.3 fL (80.0-100.0) Mean Corpuscular Hemoglobin 25.3 pg (28.0-32.0) Mean Corpuscular Hemoglobin Concent 31.5 g/dL (32.0-36.0) Red Cell Distribution Width 17.6 % (11.8-14.3) Platelet Count 609 10^3/uL (140-450) Mean Platelet Volume 6.3 fL (6.9-10.8) Neutrophils (%) (Auto) 76.0 % (37.0-80.0) Lymphocytes (%) (Auto) 11.2 % (10.0-50.0) Monocytes (%) (Auto) 11.6 % (0.0-12.0) Eosinophils (%) (Auto) 0.7 % (0.0-7.0) Basophils (%) (Auto) 0.5 % (0.0-2.0) Neutrophils # (Auto) 7.8 10 ^3/uL (1.6-8.6) Lymphocytes # (Auto) 1.1 10 ^3/uL (0.4-5.4) Monocytes # (Auto) 1.2 10 ^3/uL (0-1.3) Eosinophils # (Auto) 0.1 10 ^3/uL (0-0.8) Basophils # (Auto) 0.1 10 ^3/uL (0-0.2) Nucleated Red Blood Cells 0.1 % Prothrombin Time 13.7 sec (9.3-11.8) Prothrombin Time INR 1.33 (0.9-1.15) Activated Partial Thromboplast Time 49.8 SEC (24.5-34.5) Sodium Level 133 mmol/L (136-145) Potassium Level 3.9 mmol/L (3.5-5.1) Chloride Level 102 mmol/L (98-107) Carbon Dioxide Level 24 mmol/L (20-31) Anion Gap 7 (5-15) Blood Urea Nitrogen 13 mg/dL (9-23) Creatinine 0.81 mg/dL (0.700-1.30) Glomerular Filtration Rate Calc 91 mL/min (>90) BUN/Creatinine Ratio 16.0 (10.0-20.0) Serum Glucose 130 mg/dL (74-106) Calcium Level 8.4 mg/dL (8.7-10.4) Thyroid Stimulating Hormone (TSH) 3.25 uIU/mL (0.55-4.78) Total Bilirubin 0.3 mg/dL (0.2-1.0) Aspartate Amino Transferase (AST) 10 U/L (13-40) Alanine Aminotransferase (ALT) 22 U/L (7-40) Alkaline Phosphatase 89 U/L (46-116) Total Protein 6.6 g/dL (5.7-8.2) Albumin 3.4 g/dL (3.2-4.8) Iron Level 15 ug/dL (65-175) Total Iron Binding Capacity 154 ug/dL (250-425) Percent Iron Saturation 9.7 % (20-55) Ferritin 737.6 ng/mL (22-322) Free Prostate Specific Antigen 0.64 ng/mL (N/A) Percent Free Prostate Specific Ag 6.0 % (.) Prostate Specific Antigen Total 10.6 ng/mL (0.0-4.0) Test 06/04/24 21:36 06/04/24 12:58 06/04/24 12:24 Erythrocyte Sedimentation Rate 114 mm/hr (0-20) Erythropoietin 22.8 mIU/mL (2.6-18.5) C-Reactive Protein High Sensitivity > 20.00 mg/dL (<1.0) Tumor Marker Alpha Fetoprotein <1.8 ng/mL (0.0-8.4) Carcinoembryonic Antigen 1.06 ng/mL (<=5.0) Lactic Acid Level 1.3 mmol/L (0.4-2.0) Urine Color Yellow (Yellow) Urine Clarity Clear (Clear) Urine pH 6.0 (5.0-9.0) Urine Specific [place] 1.022 (1.001-1.035) Urine Protein Trace (Negative) Urine Ketones Negative (Negative) Urine Blood Trace /uL (Negative) Urine Nitrite Negative (Negative) Urine Bilirubin Negative (Negative) Urine Urobilinogen Normal mg/dL (Negative) Urine Leukocyte Esterase Negative /uL (Negative) Urine RBC 6 /hpf (0 - 3) Urine Microscopic WBC 3 /HPF (0-3) Urine Squamous Epithelial Cells None seen /hpf (<5) Urine Bacteria None seen /hpf (None Seen) Urine Mucus Few (None Seen) Urine Glucose Normal mg/dL (Normal) Other Laboratory Tests 06/07/24 00:29 Brief Hx & Hospital Course: Patient is a 74-year-old male with past medical history of BPH, diverticulosis, perforated gastric ulcer requiring emergency surgery, abdominal wall hernia, who came in due to abdominal pain. According to the patient, he has been having abdominal pain off and on for the past 1 year, however, his abdominal pain worsened over the last 2 days which is what prompted this visit to the hospital. Patient localizes the pain to the left lower abdomen, intermittent, sharp and dull, 10/10 when present. Patient notes no exacerbating factors, per patient Pepto-Bismol and his peppermint supplements reduce the pain transiently. Current pain was also accompanied with [address] abdomen pelvis showed a 4 mm nonobstructing calculus in the lower pole of left kidney. 7 x 5 cm lobulated non cystic mass in the lower pole of left kidney concerning for neoplasm. Hospital course: Chest x-ray showed no acute cardiopulmonary disease. UA showed trace protein, trace blood urine RBCs and microscopic WBCs. Patient was given IV NS 2 L bolus followed by IV NS at 100 cc/hour. Patient was also continued IV ciprofloxacin and IV metronidazole, urology was consulted. MRI abdomen and pelvis with and without contrast showed Suspicious left renal mass as described above, suspected renal cell carcinoma. Bulky retroperitoneal lymphadenopathy, suspected metastatic disease given the findings in the left kidney.. Patient also completed CT chest which showed 3.3 cm soft tissue mass lesion associated mid esophagus. Differential considerations would include esophageal neoplasm. Indeterminate subcentimeter short axis mediastinal lymph nodes and bilateral axillary lymph nodes, possibly reactive. No suspicious pulmonary nodules. [id number] pericardial effusion. Patient completed EGD which showed a 4-5 cm sliding-type hiatal hernia with a significant erosive esophagitis and no esophageal ulcerations or mass noted. Mild gastroduodenitis with superficial antral and duodenal erosions. On the day of discharge, patient was set up an appointment with urologist of [facility] in [place] [address] 06/14/2024 at 7:30 a.m., which was communicated to the patient and written instructions were also provided. Patient is PCP was also reached out and referrals were arranged for pulmonology follow up as well as GI and Oncology follow-ups. Details of hospitalization and post discharge plan were explained and discussed with the patient and spouse Ms. Sin in great detail were all questions were answered and concerns were addressed. Patient is also prescribed a 3 day course of azithromycin for his camp jejuni infection. His hospital course was uncomplicated. General Appearance: Cooperative. Well developed. Well nourished. NAD Head Exam: Normal inspection Neck Exam: Normal inspection. Non-tender. Normal alignment Pulmonary/Respiratory: Chest non-tender. Clear bilateral breath sounds, no crackles, no wheezing. Cardiovascular/Chest: Regular rate and rhythm. No murmurs. No JVD. Peripheral Pulses: 2+ Radial (R). 2+ Radial (L). 2+ Pedal (R). 2+ Pedal (L) Abdominal Exam: Normal bowel sounds. Soft. Epigastric hernia, reducible and nontender, no visible veins, Nontender. No hepatospenomegaly. No masses Lower extremities: 1+ lower extremity edema Neuro/Mental Status: A&O x4. Coherent. Thoughts/Psych: Normal thought pattern. Appropriate mood and affect. Good judgement and insight Skin Exam: Normal inspection. Normal color. Warm. Dry Condition at Discharge: Fair Final Diagnosis/Problems List Left renal mass concerning for metastatic renal cell carcinoma. Non-obstructing nephrolithiasis. Compylobacter jejuni positive enterocolitis. Sepsis due to above. Anemia, likely of chronic disease. History of benign prostatic hyperplasia. 3.3 cm soft tissue mass lesion associated with the midesophagus. Mild to moderate pericardial effusion. Discharge Disposition: Home Discharge Instruct/Medications Diet: Regular Diet comment: Diet: Regular. Activity: No Restrictions, As Tolerated Activity comment: Activity: No restrictions/as tolerated. Follow Up/Referral: Patient was scheduled an appointment with Urology in the outpatient clinic on 06/14/2024 at 7:30 a.m. for possible nephrectomy and biopsy. Please follow up with Oncology in the outpatient clinic Please follow up with PCP in 1-2 weeks Medications: Azithromycin 500 mg once daily for 3 days Discharge Statement: "Patient was advised to return to the ER or call 911 if any headaches, dizziness, shortness of breath, chest pain, abdominal pain, bleeding, fevers, or worsening of medical condition. Patient was counseled about treatment plan, medications, possible side effects, patientverbalized understanding. All questions were answered to the best of my ability. This discharge took greater then 30 minutes in planning, reviewing documentation, counseling the patient, and discussing with other team members." ASSESSMENT ASSESSMENT Assessment Left renal mass concerning for metastatic renal cell carcinoma. Non-obstructing nephrolithiasis. Compylobacter jejuni positive enterocolitis. Sepsis due to above. Anemia, likely of chronic disease. History of benign prostatic hyperplasia. 3.3 cm soft tissue mass lesion associated with the midesophagus. Mild to moderate pericardial effusion. Date of Service: Jun 06, 2024 Billing Provider: VALE DUKE MD Common Visit Codes: 31893-[facility]/OBS DISCH DAY >30min LYNNE TRUONG Jun 07, 2024 19:54 VALE DUKE MD Jun 12, 2024 11:41
[2024-06-08] MEDS ORDERED: AZITHROMYCIN 250 MG TAB PO SCH (10:00)
--- NOTE | 2024-06-08 14:22 | DVHSR ---
APPROVED REPORT EXAM: Two-dimensional and M-mode echocardiogram with Doppler and color Doppler. Blood Pressure: 118/61 mmHg INDICATION Pericardial effusion RISK FACTORS Height: 6'2", Weight: 166 DIMENSIONS LVDd4.8 (3.8-5.7cm)LA (2D)4.8 (1.9-4.0cm)Aortic Root3.8 (2.0-3.7cm) LVDs3.3 (2.5-4.0cm)LA (MM) (1.9-4.0cm)Aortic Cusp Exc2.3 (1.5-2.0cm) EF (%) 55.0 (55-70%)Rt. Atrium4.6 (1.9-4.0cm)Asc. Aorta cm IVSd1.1 (0.7-1.1cm)RV (D)4.3 (1.8-2.4cm) PWd1.1 (0.7-1.1cm) Mitral Valve MitralMitral Stenosis E wave0.85m/sMV Mean GR.mmHg A wave0.99m/sMV Peak GR.mmHg E/A ratio0.92D MVAcm2 DECEL [id number] 1/2 Timems Aortic Valve Aortic ValveAortic Stenosis V11.40m/Valorie Mean GR.6mmHg V21.64m/Valorie Peak GR.11mmHg LVOT Diameter2.5 (1.8-2.4cm)Doppler AVA4.19cm2 Pulmonic Valve V21.28m/s Tricuspid Valve TR Velocity3.07m/s [id number] Conclusion Technically good study sinus rhythm. Biatrial enlargement. Aortic root enlargement. RV enlargement. Valves appear to be structurally normal. EF of 60% with normal RV function. Dopplers unremarkable. No pericardial effusion masses or vegetations.
== END 2024-06-07 18:30 | disposition home or self-care (01) | DRG 843 ==
LOC: ER 12:13 → OVERFLOW 21:15 → EAST 23:18
PROVIDERS: ADMIT Student in an Organized Health Care Education/Training Program; ATTEND Student in an Organized Health Care Education/Training Program
PROC: 30233N1 Transfusion of Nonautologous Red Blood Cells into Peripheral Vein, Percutaneous Approach (ICD-10-PCS; 2024-06-07)
PROC: 0DB68ZX Excision of Stomach, Via Natural or Artificial Opening Endoscopic, Diagnostic (ICD-10-PCS; 2024-06-07)
PROC: 0DB98ZX Excision of Duodenum, Via Natural or Artificial Opening Endoscopic, Diagnostic (ICD-10-PCS; principal; 2024-06-07 13:15)
DX: C80.1 Malignant (primary) neoplasm, unspecified (principal); A41.9 Sepsis, unspecified organism; A04.5 Campylobacter enteritis; I31.39 Other pericardial effusion (noninflammatory); C79.02 Secondary malignant neoplasm of left kidney and renal pelvis; D64.9 Anemia, unspecified; N28.89 Other specified disorders of kidney and ureter; D75.839 Thrombocytosis, unspecified; N20.0 Calculus of kidney; N40.0 Benign prostatic hyperplasia without lower urinary tract symptoms; K22.89 Other specified disease of esophagus; K29.70 Gastritis, unspecified, without bleeding; K26.9 Duodenal ulcer, unspecified as acute or chronic, without hemorrhage or perforation; K29.90 Gastroduodenitis, unspecified, without bleeding; K44.9 Diaphragmatic hernia without obstruction or gangrene; Z79.899 Other long term (current) drug therapy; Z87.11 Personal history of peptic ulcer disease; Z87.891 Personal history of nicotine dependence
CPT/HCPCS: 36415; 70553; 71045; 71250; 74176; 74181; 80048; 80053; 81001; 82105; 82378; 82668; 82728; 83540; 83550; 83605; 84154; 84443; 85025; 85610; 85652; 85730; 86141; 86850; 86900; 86901; 86920; 87040; 87045; 87086; 87427; 93005; 93306; G0378; J1100; J2250; J2405; J2470; J2704; J3490

== ENCOUNTER 2024-06-10 13:52 | Inpatient (IN) | payer OTHER ==
[~2024-06-10] VITALS: Ht 188 cm; Wt 77.2 kg
[~2024-06-10 13:52] MED LIST changes: +AZIT500T66 PO; -TAMS-35 PO; +TAMS1CAP25 PO
--- NOTE | 2024-06-10 16:07 | ED.PDOC ---
GI ASSESSMENT HPI Comments 74-year-old male presents with a chief complaint of abdominal pain. Patient was D/C from this hospital on 06/07/2024 for abdomen pain, states that the pain never got better and is now back to be seen again. Patient states that his pain is cramping/sharp and is localized to his lower abdomen. Denies any nausea, vomiting, and diarrhea. Patient had 2 bowel movements today. Chief Complaint: Abdominal Pain Time Seen by MD: 15:38 Primary Care Provider: SANDIP Lima Notes: Medications, Allergies Allergies: Coded Allergies: NO KNOWN ALLERGIES (Unverified , 02/02/24) Home Meds Active Scripts Azithromycin (Azithromycin) 500 Mg Tab, 1 TAB PO DAILY for 3 Days, #3 TAB Prov:LYNNE TRUONG RESIDENT 06/07/24 Reported Medications Prazosin Hcl (Minipres) 1 Mg Cp, 2 MG PO DAILYP, #30 CAP 06/05/24 Tamsulosin HCl (Tamsulosin Hydrochloride) 0.4 Mg Cap, 0.4 MG PO DAILY, CAP 06/05/24 Discontinued Reported Medications Prazosin Hcl (Minipres) 1 Mg Cp, 1 MG PO DAILY, CAP 02/02/24 Tamsulosin Hcl (Flomax) 0.4 Mg Cap, 0.4 MG PO da, CAP 02/02/24 Information Source: Patient Mode of Arrival: Ambulatory Timing: Days Duration: Since onset Prehospital treatment: None Quality: Cramping, Sharp Vomitus: None Stool: Normal Severity: Moderate Recent: None Recent Hx of: None Pain Location: Suprapubic Associated sign and symptoms: Abdominal Pain Past Medical History PAST MEDICAL HISTORY: Depression Family History Family History: Reviewed,noncontributory to illness Social History Smoker: Non-Smoker Alcohol: Denies ETOH Use Drugs: Denies Drug Use Lives In: Home Constitutional: denies: chills, diaphoresis, fatigue, fever, malaise, sweats, weakness, others EENTM: denies: blurred vision, double vision, ear bleeding, ear discharge, ear drainage, ear pain, ear ringing, eye pain, eye redness, hearing loss, mouth pain, mouth swelling, nasal discharge, nose bleeding, nose congestion, nose pain, photophobia, tearing, throat pain, throat swelling, voice changes, others Respiratory: denies: cough, hemoptysis, orthopnea, SOB at rest, shortness of breath, SOB with excertion, stridor, wheezing, others Cardiovascular: denies: chest pain, dizzy spells, diaphoresis, Dyspnea on exertion, edema, irregular heart beat, left arm pain, lightheadedness, palpitations, PND, syncope, others Gastrointestinal: reports: abdominal pain; denies: abdomen distended, blood streaked bowels, constipated, diarrhea, dysphagia, difficulty swallowing, hematemesis, melena, nausea, poor appetite, poor fluid intake, rectal bleeding, rectal pain, vomiting, others Genitourinary: denies: burning, dysuria, flank pain, frequency, hematuria, incontinence, penile discharge, penile sore, pain, testicle pain, testicle swelling, urgency, others Neurological: denies: dizziness, fainting, headache, left sided numbness, left sided weakness, numbness, paresthesia, pre-existing deficit, right sided numbness, right sided weakness, seizure, speech problems, tingling, tremors, weakness, others Musculoskeletal: denies: back pain, gout, joint pain, joint swelling, muscle pain, muscle stiffness, neck pain, others Integumetry: denies: bruises, change in color, change in hair/nails, dryness, laceration, lesions, lumps, rash, wounds, others Allergic/Immunocompromised: denies: Difficulty Healing, Frequent Infections, Hives, Itching, others Hematologic/Lymphatic: denies: anemia, blood clots, easy bleeding, easy bruising, swollen glands, others Endocrine: denies: excessive hunger, excessive sweating, excessive thirst, excessive urination, flushing, intolerance to cold, intolerance to heat, unexplained weight gain, unexplained weight loss, others Psychiatric: denies: anxiety, bipolar disorder, depression, hopeless, panic disorder, schizophrenia, sleepless, suicidal, others All Other Systems: Reviewed and Negative Physical Exam General Appearance: Mild Distress, Normal, Thin HEENT: Normal ENT Inspection, Pharynx Normal, TMs Normal Neck: Full Range of Motion, Non-Tender, Normal, Normal Inspection Respiratory: Chest Non-Tender, Lungs Clear, No Accessory Muscle Use, No Respiratory Distress, Normal Breath Sounds Cardiovascular: No Edema, No JVD, No Murmur, No Gallop, Normal Peripheral Pulses, Regular Rate/Rhythm Breast Exam: Deferred Gastrointestinal: No Organomegaly, No Pulsatile Mass, Normal Bowel Sounds, Soft, Suprapubic, Tenderness Genitalia: Deferred Pelvic: Deferred Rectal: Deferred Extremities: No calf tenderness, Normal capillary refill, Normal inspection, Normal range of motion, Non-tender, No pedal edema Musculoskeletal : Apperance: Normal Neurologic: Alert, software development intern II-XII nml as Tested, No Motor Deficits, Normal Affect, Normal Mood, No Sensory Deficits Cerebellar Function: Normal Reflexes: Normal Skin: Dry, Normal Color, Warm Lymphatic: No Adenopathy Was a procedure done? Was a procedure done?: No GI differential Dx Differential Diagnosis: Bowel Obstruction, Constipation, Diverticular disease, Gastritis/PUD, Gastroenteritis, Inflammatory BD, Pancreatitis, Dehydration, Bacterial, Viral, Impaction X-Ray, Labs, Meds, VS Vital Signs Date Time Temp Pulse Resp B/P (MAP) Pulse Ox O2 Delivery O2 Flow Rate FiO2 06/10/24 15:02 99.5 77 18 107/60 (76) 95 Lab Test 06/10/24 16:36 Range/Units White Blood Count 13.4 #H 4.4-10.8 10^3/uL Red Blood Count 3.78 L 4.5-5.90 10^6/uL Hemoglobin 9.9 #L 13.5-17.5 g/dL Hematocrit 31.0 #L 41.0-53.0 % Mean Corpuscular Volume 82.1 80.0-100.0 fL Mean Corpuscular Hemoglobin 26.3 L 28.0-32.0 pg Mean Corpuscular Hemoglobin Concent 32.0 32.0-36.0 g/dL Red Cell Distribution Width 18.3 H 11.8-14.3 % Platelet Count 625 H 140-450 10^3/uL Mean Platelet Volume 6.9 6.9-10.8 fL Neutrophils (%) (Auto) 80.5 H 37.0-80.0 % Lymphocytes (%) (Auto) 8.9 L 10.0-50.0 % Monocytes (%) (Auto) 9.5 0.0-12.0 % Eosinophils (%) (Auto) 0.4 0.0-7.0 % Basophils (%) (Auto) 0.7 0.0-2.0 % Neutrophils # (Auto) 10.8 H 1.6-8.6 10 ^3/uL Lymphocytes # (Auto) 1.2 0.4-5.4 10 ^3/uL Monocytes # (Auto) 1.3 0-1.3 10 ^3/uL Eosinophils # (Auto) 0.1 0-0.8 10 ^3/uL Basophils # (Auto) 0.1 0-0.2 10 ^3/uL Nucleated Red Blood Cells 0.0 % Sodium Level 135 L 136-145 mmol/L Potassium Level 4.0 3.5-5.1 mmol/L Chloride Level 99 98-107 mmol/L Carbon Dioxide Level 28 20-31 mmol/L Anion Gap 8 5-15 Blood Urea Nitrogen 17 9-23 mg/dL Creatinine 0.75 0.700-1.30 mg/dL Glomerular Filtration Rate Calc 94 >90 mL/min BUN/Creatinine Ratio 22.7 H 10.0-20.0 Serum Glucose 97 74-106 mg/dL Calcium Level 9.1 8.7-10.4 mg/dL Total Bilirubin 0.3 0.2-1.0 mg/dL Aspartate Amino Transferase (AST) 16 13-40 U/L Alanine Aminotransferase (ALT) 16 7-40 U/L Alkaline Phosphatase 93 46-116 U/L Total Protein 7.2 5.7-8.2 g/dL Albumin 3.6 3.2-4.8 g/dL Lipase 30 12-53 U/L 74-year-old male presents here with abdominal pain. He was just discharged from the hospital 3 days ago. Family at bedside who states he was doing well at time of discharge and was doing okay for the 2 days but then yesterday again is accurate appetite decreased again, abdominal pain increased again and he is not well-appearing any longer. Patient reports increased abdominal pain. He does has a evidence of a hernia to the abdomen which is easily reducible. Patient states that is not the cause of the pain. I considered possible small bowel obstruction however abdomen is largely soft and nontender and patient did have 2 bowel movements earlier today. Family and patient do prefer admission again as they feel that something is not right. I did review the records he brought in extensively. Patient does have a history of renal cell carcinoma and he had a Urology appointment scheduled for June 14 and plan to see Oncology. Family is requesting that Urology be consulted during this admission and see if surgery can be done sooner. At this time hospitalist team has been contacted for admission. Blood work has been done which does demonstrate evidence of mild leukocytosis of 13.4 which is increased from his recent admission of 10. Also has evidence of anemia of 9.9. CMP largely unremarkable. Time of 1ST Reevaluation: 16:08 Reevaluation 1ST: Unchanged Patient Education/Counseling: Diagnosis, Treatment, Prognosis Family Education/Counseling: Diagnosis, Treatment, Prognosis Departure 1 Departure Time of Disposition: 17:31 Impression: Primary Impression: Abdominal pain Qualified Codes: R10.30 - Lower abdominal pain, unspecified Additional Impressions: Renal cell carcinoma Qualified Codes: C64.2 - Malignant neoplasm of left kidney, except renal pelvis Anemia Qualified Codes: D64.9 - Anemia, unspecified Disposition: 09 ADMITTED INPATIENT Admit to: Med Surg Condition: Fair Discharged With: Self Critical Care Note Critical Care Time?: No Stability Stability form required: No Heart Score Heart Score: Heart Score Response (Comments) Value History N/A 0 EKG N/A 0 Age N/A 0 Risk Factors N/A 0 Troponin N/A 0 Total 0 I personally scribed for CED GUZMÁN MD ([email or web address]) on 06/10/24 at 16:07. Electronically submitted by Usman Garcia ([email or web address]). I personally scribed for CED GUZMÁN MD ([email or web address]) on 06/10/24 at 17:32. Electronically submitted by Usman Garcia ([email or web address]). CED GUZMÁN MD Jun 10, 2024 16:07
[2024-06-10 16:58] VITALS: PULSE 84; RESP 19; O2SAT 96
[2024-06-10] MEDS ORDERED: ACETAMINOPHEN 500 MG TAB or CAP PO PRN (17:00)
[2024-06-10] MEDS ORDERED: ONDANSETRON HCL 4 MG/2 ML VIAL IV PRN (17:00)
[2024-06-10] MEDS ORDERED: DOCUSATE SOD 100 MG CAP PO PRN (17:00)
--- NOTE | 2024-06-10 17:01 | DVHHP2 ---
History of Present Illness Reason for Visit: Abdominal pain History of Present Illness Patient was a 74-year-old male presenting to the emergency room with reports of suprapubic pain. Patient reports that he was recently discharged from this hospital after being treated for similar abdominal pain, undergoing endoscopy, as well as multiple diagnostic imaging including MRI of the abdomen. 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 Patient reports his pain to be a cramping like sensation in his suprapubic area. He states that his bowel movements are of normal consistency. He denies having any dysuria. Heme/Onc: Anemia NOS Renal/: Benign prostatic enlarg. Past Surgical History: None Family History: None Smoke: No ALCOHOL: none Drugs: None Lives: with Family Review of Systems Constitutional: No: Fever, Chills, Sweats, Weakness, Malaise, Other Eyes: No: Pain, Vision change, Conjunctivae inflammation, Eyelid inflammation, Other, Redness ENT: No: Ear pain, Ear discharge, Nose pain, Nose discharge, Nose congestion, Mouth pain, Mouth swelling, Throat pain, Throat swelling, Other Respiratory: No: Cough, Dry, Shortness of breath, SOB with excertion, Wheezing, Hemoptysis, Pleuritic Pain, Sputum, Wheezing, Other Cardiovascular: No: Chest Pain, Palpitations, Orthopnea, Paroxysmal Noc. Dyspnea, Edema, Lt Headedness, Other Gastrointestinal: Abdominal Pain Genitourinary: No Dysuria, No Frequency, No Incontinence, No Hematuria, No Retention, No Other Musculoskeletal: No: other, neck pain, shoulder pain, arm pain, back pain, hand pain, leg pain, foot pain Skin: No: Rash, Lesions, Jaundice, Bruising, Other Neurological: No: Weakness, Numbness, Incoordination, Change in speech, Confusion, Seizures, Other Allergies: Coded Allergies: NO KNOWN ALLERGIES (Unverified , 02/02/24) Exam Vital Signs Vital Signs Date Time Temp Pulse Resp B/P (MAP) Pulse Ox O2 Delivery O2 Flow Rate FiO2 06/10/24 15:02 99.5 77 18 107/60 (76) 95 General Appearance: Alert, Oriented X3, Cooperative, mild distress HEENT: Atraumatic, PERRLA Cardiovascular: Normal S1, Normal S2 Abdominal: Other (Ventral hernia, tenderness to suprapubic area) Extremities: No clubbing, No cyanosis, No edema, Normal pulses Psych/Mental Status: Mental status NL, Mood NL Assessment/Plan Assessment/Plan Impression: -abdominal pain -renal mass, unspecified -BPH, elevated PSA -recent Campylobacter, treated -ventral hernia -rule out complicated cystitis -anemia Plan: -admit to Medical/Surgical unit -pain management -IV hydration -UA -repeat labs in a.m. -further course of treatment per initial diagnostic findings. -Rocephin 1 g daily Total time spent with patient discussing and formulating plan of care: 35 minutes. This medical document was created using an electronic medical record system with [employer] dictation system. Although this document has been carefully reviewed, there may still be some phonetic and typographical errors. These areas are purely typographical due to imperfections of the software programs, and do not reflect any compromise in the patient's medical care. Plan discussed with: Patient, Other (RN) My Orders Orders - ISAIAS ORTIZ NP Procedure Category Date Status Time Admit ADMIT 06/10/24 Verified 16:48 Oxygen By Nasal RT 06/10/24 Verified Cannula 16:48 Tamsulosin PHA 06/11/24 Verified Hydrochloride (Flomax) 10:00 Morphine Sulfate PHA 06/10/24 Verified Injection 17:00 Hydrocodone-Acet PHA 06/10/24 Verified 5/325mg Tab (Ivel 17:00 Acetaminophen Tablet PHA 06/10/24 Verified (Tylenol Tablet) 17:00 Ondansetron Hcl PHA 06/10/24 Verified (Zofran) 17:00 Docusate Sodium PHA 06/10/24 Verified Capsule (Colace 17:00 Urine Bacterial AJAY 06/10/24 Verified Culture 16:48 Basic Metabolic Panel LAB 06/11/24 Verified 04:00 Complete Blood Count LAB 06/11/24 Verified 04:00 NS PHA 06/10/24 Verified 17:00 Sequential DAVID 06/10/24 Verified Compression Device 16:48 Regular Diet DIET 06/10/24 Verified Dinner Ceftriaxone Ivpb PHA 06/11/24 Verified Rocephin 09:00 Date of Service: Jun 10, 2024 Billing Provider: ISAIAS ORTIZ NP Common Visit Codes: 73262-[facility]OP INP/OBS CARE (HIGH) ISAIAS ORTIZ NP Jun 10, 2024 17:01
[2024-06-10 17:10] LABS: Basophils # (auto) 0.1 10 ^3/uL (0-0.2); Basophils % (auto) 0.7 % (0.0-2.0); Eosinophils # (auto) 0.1 10 ^3/uL (0-0.8); Eosinophils % (auto) 0.4 % (0.0-7.0); Hemoglobin 9.9 g/dL (13.5-17.5); Lymphocytes # (auto) 1.2 10 ^3/uL (0.4-5.4); Lymphocytes % (auto) 8.9 % (10.0-50.0); Mean Corpuscular Hemoglobin 26.3 pg (28.0-32.0); Mean Corpuscular Volume 82.1 fL (80.0-100.0); Monocytes # (auto) 1.3 10 ^3/uL (0-1.3); Monocytes % (auto) 9.5 % (0.0-12.0); Neutrophils # (auto) 10.8 10 ^3/uL (1.6-8.6); Neutrophils % (auto) 80.5 % (37.0-80.0); Platelet Count (auto) 625 10^3/uL (140-450); Red Blood Cells 3.78 10^6/uL (4.5-5.90); Red Cell Distribution Width 18.3 % (11.8-14.3); White Blood Cell 13.4 10^3/uL (4.4-10.8)
[2024-06-10 17:33] LABS: Alanine Aminotransferase 16 U/L (7-40); Albumin 3.6 g/dL (3.2-4.8); Alkaline Phosphatase 93 U/L (46-116); Anion Gap 8 (5-15); Aspartate Aminotransferase 16 U/L (13-40); BUN/Creatinine Ratio 22.7 (10.0-20.0); Blood Urea Nitrogen 17 mg/dL (9-23); Calcium 9.1 mg/dL (8.7-10.4); Carbon Dioxide 28 mmol/L (20-31); Chloride 99 mmol/L (98-107); Glucose 97 mg/dL (74-106); Lipase 30 U/L (12-53); Total Protein 7.2 g/dL (5.7-8.2)
[2024-06-10 17:50] LABS: Bilirubin, Total 0.3 mg/dL (0.2-1.0); Sodium 135 mmol/L (136-145)
[2024-06-10 18:00] VITALS: BP 108/59; PULSE 79; RESP 16; TEMP 99.7; O2SAT 96
[2024-06-10] MEDS: SODIUM CHLORIDE 0.9% 1,000 ML IV ONE (18:49)
[2024-06-10 19:09] VITALS: BP 108/59; PULSE 79; RESP 16; TEMP 99.7; O2SAT 96
[2024-06-10] MEDS ORDERED: CIPR-214 PO (19:13)
[2024-06-10] MEDS ORDERED: MET500T PO (19:13)
[2024-06-10 20:26] VITALS: BP 106/63; PULSE 80; RESP 18; TEMP 99; O2SAT 96
[2024-06-10] MEDS: HYDROcodone-ACET 5/325MG TAB PO PRN (20:41)
[2024-06-10 21:40] VITALS: PULSE 80; RESP 18
[2024-06-10 22:28] VITALS: BP 116/65; PULSE 72; RESP 19; TEMP 98.4; O2SAT 97
[2024-06-11 01:00] VITALS: BP 114/58; PULSE 80; RESP 19; TEMP 98.3; O2SAT 97
[2024-06-11] MEDS ORDERED: MELATONIN 5 MG TAB PO PRN (03:15)
[2024-06-11 05:00] VITALS: BP 114/65; PULSE 85; RESP 19; TEMP 98.8; O2SAT 95
[2024-06-11 08:12] LABS: Basophils # (auto) 0 10 ^3/uL (0-0.2); Basophils % (auto) 0.3 % (0.0-2.0); Eosinophils # (auto) 0.1 10 ^3/uL (0-0.8); Eosinophils % (auto) 0.8 % (0.0-7.0); Hematocrit 25.9 % (41.0-53.0); Hemoglobin 8.3 g/dL (13.5-17.5); Lymphocytes # (auto) 1.1 10 ^3/uL (0.4-5.4); Lymphocytes % (auto) 10.7 % (10.0-50.0); Mean Corpuscular Hemoglobin 26.1 pg (28.0-32.0); Mean Corpuscular Volume 81.7 fL (80.0-100.0); Monocytes # (auto) 1.2 10 ^3/uL (0-1.3); Monocytes % (auto) 11.7 % (0.0-12.0); Neutrophils # (auto) 7.9 10 ^3/uL (1.6-8.6); Neutrophils % (auto) 76.5 % (37.0-80.0); Platelet Count (auto) 534 10^3/uL (140-450); Red Blood Cells 3.17 10^6/uL (4.5-5.90); Red Cell Distribution Width 18.3 % (11.8-14.3); White Blood Cell 10.3 10^3/uL (4.4-10.8)
[2024-06-11 08:59] LABS: Anion Gap 10 (5-15); Carbon Dioxide 25 mmol/L (20-31)
[2024-06-11 09:04] LABS: BUN/Creatinine Ratio 18.2 (10.0-20.0); Blood Urea Nitrogen 14 mg/dL (9-23); Glucose 103 mg/dL (74-106)
[2024-06-11 09:06] LABS: Calcium 8.5 mg/dL (8.7-10.4); Chloride 99 mmol/L (98-107); Sodium 134 mmol/L (136-145)
[2024-06-11 09:08] VITALS: BP 115/64; PULSE 70; RESP 20; TEMP 98.8; O2SAT 97
[2024-06-11] MEDS: cefTRIAXone 1GM/50ML D5W 50 ML IV SCH (09:09)
[2024-06-11] MEDS: TAMSULOSIN HYDROCHLORIDE 0.4 MG CAP PO SCH (09:09)
[2024-06-11 13:00] VITALS: BP 105/55; PULSE 69; RESP 18; TEMP 98.3; O2SAT 96
[2024-06-11] MEDS: MORPHINE SULFATE INJ 2 MG/ml SYRG IV PRN (15:58)
[2024-06-11] MEDS ORDERED: DICY10CA PO (16:17)
[2024-06-11] MEDS ORDERED: HYDR-4798 PO (16:17)
--- NOTE | 2024-06-11 16:22 | DVHDS2 ---
Discharge Summary Date of Admission Jun 10, 2024 at 16:48 Date of Discharge: Jun 11, 2024 Labs/Diagnostic Data: Laboratory Results Test 06/11/24 06:53 06/10/24 16:36 White Blood Count 10.3 10^3/uL (4.4-10.8) Red Blood Count 3.17 10^6/uL (4.5-5.90) Hemoglobin 8.3 g/dL (13.5-17.5) Hematocrit 25.9 % (41.0-53.0) Mean Corpuscular Volume 81.7 fL (80.0-100.0) Mean Corpuscular Hemoglobin 26.1 pg (28.0-32.0) Mean Corpuscular Hemoglobin Concent 32.0 g/dL (32.0-36.0) Red Cell Distribution Width 18.3 % (11.8-14.3) Platelet Count 534 10^3/uL (140-450) Mean Platelet Volume 6.8 fL (6.9-10.8) Neutrophils (%) (Auto) 76.5 % (37.0-80.0) Lymphocytes (%) (Auto) 10.7 % (10.0-50.0) Monocytes (%) (Auto) 11.7 % (0.0-12.0) Eosinophils (%) (Auto) 0.8 % (0.0-7.0) Basophils (%) (Auto) 0.3 % (0.0-2.0) Neutrophils # (Auto) 7.9 10 ^3/uL (1.6-8.6) Lymphocytes # (Auto) 1.1 10 ^3/uL (0.4-5.4) Monocytes # (Auto) 1.2 10 ^3/uL (0-1.3) Eosinophils # (Auto) 0.1 10 ^3/uL (0-0.8) Basophils # (Auto) 0 10 ^3/uL (0-0.2) Nucleated Red Blood Cells 0.0 % Sodium Level 134 mmol/L (136-145) Potassium Level 4.0 mmol/L (3.5-5.1) Chloride Level 99 mmol/L (98-107) Carbon Dioxide Level 25 mmol/L (20-31) Anion Gap 10 (5-15) Blood Urea Nitrogen 14 mg/dL (9-23) Creatinine 0.77 mg/dL (0.700-1.30) Glomerular Filtration Rate Calc 93 mL/min (>90) BUN/Creatinine Ratio 18.2 (10.0-20.0) Serum Glucose 103 mg/dL (74-106) Calcium Level 8.5 mg/dL (8.7-10.4) Total Bilirubin 0.3 mg/dL (0.2-1.0) Aspartate Amino Transferase (AST) 16 U/L (13-40) Alanine Aminotransferase (ALT) 16 U/L (7-40) Alkaline Phosphatase 93 U/L (46-116) Total Protein 7.2 g/dL (5.7-8.2) Albumin 3.6 g/dL (3.2-4.8) Lipase 30 U/L (12-53) Other Laboratory Tests 06/11/24 06:53 Brief Hx & Hospital Course: HPI: 74-year-old male presenting to the emergency room with reports of suprapubic pain. Patient reports that he was recently discharged from this hospital after being treated for similar abdominal pain, undergoing endoscopy, as well as multiple diagnostic imaging including MRI of the abdomen. 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 Patient reports his pain to be a cramping like sensation in his suprapubic area. He states that his bowel movements are of normal consistency. He denies having any dysuria. Summary: Patient presented with intractable abdominal pain. On labs he has leukocytosis 13.4, neutrophilia, thrombo cytosis 625, chronic anemia 9.9, mild hyponatremia 135, vital signs show mild hypotension 100s over 50s but maps more than 70. Respiration intact, vital signs stable. Patient is pain is controlled with IV and oral analgesia. On repeat labs all values are stable. Abdomen nontender nonacute. Pain is resolving. Patient complains of small attacks. Noting that patient has abdominal wall ventral hernia and has not seen a surgeon. Hernia is reducible and bowel sounds present. No concern for strangulation or incarceration. Patient can follow up with GEN surg outpatient. Plan is to have patient follow up with GI specialist on coming up Wednesday06/14/2024, and have follow up with Shira lemon to evaluate developed and hernia. And patient can have pain control with p.o. medications as per discharge plan below. diagnosis: -intractable abdominal pain, resolved, likely due to ventral hernia -ventral hernia, uncomplicated, ruled out incarceration and/or strangulation -renal mass, unspecified -BPH, elevated PSA -recent Campylobacter, treated -ruled outed complicated cystitis -anemia discharge plan: -continue full liquid diet for 7 days, - For recurrent abdominal pains/cramps can use OTC Tylenol, OTC ibuprofen, as needed [place] 10 up to 3 times per day as needed, Bentyl 10 mg capsule up to 3 times per day as needed - follow up with GI specialist - referral to Juan lemon for ventral hernia eval. May need outpatient GI series. -follow up with PCP to review discharge Condition at Discharge: Fair Final Diagnosis/Problems List -intractable abdominal pain, resolved, likely due to ventral hernia -ventral hernia, uncomplicated, ruled out incarceration and/or strangulation -renal mass, unspecified -BPH, elevated PSA -recent Campylobacter, treated -ruled outed complicated cystitis -anemia Discharge Disposition: Home Discharge Instruct/Medications Diet: See Comment Diet comment: full liquid diet Activity: No Restrictions, As Tolerated Follow Up/Referral: pcp, gi Medications: below Discharge Statement: "Patient was advised to return to the ER or call 911 if any headaches, dizziness, shortness of breath, chest pain, abdominal pain, bleeding, fevers, or worsening of medical condition. Patient was counseled about treatment plan, medications, possible side effects, patientverbalized understanding. All questions were answered to the best of my ability. This discharge took greater then 30 minutes in planning, reviewing documentation, counseling the patient, and discussing with other team members." Date of Service: Jun 11, 2024 Billing Provider: KAT GRANT MD Common Visit Codes: 36840-KZR/OBS DISCH DAY >30min KAT GRANT MD Jun 11, 2024 16:22
[2024-06-11 17:00] VITALS: BP 132/72; PULSE 78; RESP 18; TEMP 98.4; O2SAT 97
== END 2024-06-11 18:20 | disposition home or self-care (01) | DRG 394 ==
LOC: ER 13:52 → OVERFLOW 16:48 → WEST WING 22:28
PROVIDERS: ADMIT Nurse Practitioner Acute Care; ATTEND Nurse Practitioner Acute Care
DX: K43.9 Ventral hernia without obstruction or gangrene (principal); E87.1 Hypo-osmolality and hyponatremia; D64.9 Anemia, unspecified; N40.0 Benign prostatic hyperplasia without lower urinary tract symptoms; D72.829 Elevated white blood cell count, unspecified; F32.A Depression, unspecified; Z79.899 Other long term (current) drug therapy; N28.89 Other specified disorders of kidney and ureter
CPT/HCPCS: 36415; 80048; 80053; 83690; 85025; 87081; 87086; G0378

== ENCOUNTER → 2024-06-28 | Outpatient (CLI) | payer OTHER ==
[~2024-06-28] MED LIST changes: -AZIT500T66 PO; +CIPR-214 PO; +DICY10CA PO; +HYDR-4798 PO; +MET500T PO; -PRAZ1CAP2 PO
== END | disposition home or self-care (01) ==
LOC: RT 08:56
PROVIDERS: ATTEND Internal Medicine Pulmonary Disease
DX: J43.9 Emphysema, unspecified (principal); R06.00 Dyspnea, unspecified
CPT/HCPCS: 94060; 94727; 94729

== ENCOUNTER → 2024-07-05 | Outpatient (CLI) | payer OTHER ==
[2024-07-05 13:28] LABS: Basophils # (auto) 0.1 10 ^3/uL (0-0.2); Eosinophils # (auto) 0.1 10 ^3/uL (0-0.8); Hemoglobin 8.6 g/dL (13.5-17.5); Lymphocytes # (auto) 0.9 10 ^3/uL (0.4-5.4); Monocytes # (auto) 1.1 10 ^3/uL (0-1.3); White Blood Cell 10.2 10^3/uL (4.4-10.8)
[2024-07-05 13:29] LABS: Basophils % (auto) 0.6 % (0.0-2.0); Eosinophils % (auto) 0.9 % (0.0-7.0); Hematocrit 27.5 % (41.0-53.0); Lymphocytes % (auto) 8.8 % (10.0-50.0); Mean Corpuscular Hemoglobin 26.2 pg (28.0-32.0); Mean Corpuscular Hgb Conc. 31.5 g/dL (32.0-36.0); Mean Corpuscular Volume 83.2 fL (80.0-100.0); Neutrophils % (auto) 78.7 % (37.0-80.0); Nucleated Red Blood Cells % 0.1 %; Platelet Count (auto) 717 10^3/uL (140-450); Red Cell Distribution Width 18.3 % (11.8-14.3)
[2024-07-05 13:39] LABS: Alanine Aminotransferase 18 U/L (7-40); Albumin 3.5 g/dL (3.2-4.8); Alkaline Phosphatase 106 U/L (46-116); Anion Gap 10 (5-15); Aspartate Aminotransferase 20 U/L (13-40); BUN/Creatinine Ratio 21.7 (10.0-20.0); Blood Urea Nitrogen 15 mg/dL (9-23); Calcium 8.9 mg/dL (8.7-10.4); Carbon Dioxide 28 mmol/L (20-31); Chloride 98 mmol/L (98-107); Glucose 95 mg/dL (74-106); Potassium 4.3 mmol/L (3.5-5.1); Total Protein 6.9 g/dL (5.7-8.2)
[2024-07-05 13:40] LABS: Bilirubin, Total 0.2 mg/dL (0.2-1.0); Sodium 136 mmol/L (136-145)
== END | disposition home or self-care (01) ==
LOC: LAB 13:00
PROVIDERS: ATTEND Internal Medicine
DX: C64.2 Malignant neoplasm of left kidney, except renal pelvis (principal); R22.9 Localized swelling, mass and lump, unspecified
CPT/HCPCS: 36415; 80053; 83615; 85025

== ENCOUNTER 2024-08-19 10:20 | Inpatient (IN) | payer OTHER ==
[~2024-08-19] VITALS: Ht 182.9 cm; Wt 70.9 kg
[2024-08-19] VITALS (10 sets, daily range): BP systolic 115–122; BP diastolic 52–64; PULSE 18–93; RESP 16–18; TEMP 94.8–99.2; O2SAT 93–98
--- NOTE | 2024-08-19 10:53 | ED.PDOC ---
Back pain HPI HPI Comments A 74 YEAR OLD MALE PRESENTS TO THE ED WITH CHIEF COMPLAINT OF LOWER BACK PAIN. PATIENT REPORTS THAT HE HAD WOKEN UP THIS MORNING WITH LOWER BACK PAIN, FEELING SIMILAR TO HIS KIDNEY CANCER PAIN, BUT WORSE TODAY. PATIENT RELAYS THAT HE TOOK NORCO 10/325MG WITH NO RELIEF NOTED. PATIENT STATES HE HAS UPCOMING KIDNEY SURGERY FOR HIS KIDNEY CANCER ON 08/29/24. PATIENT DENIES ANY NUMBNESS, WEAKNESS, TINGLING, RADIATION OF PAIN, FLANK PAIN, FALL, OR INJURY. NO OTHER SYMPTOMS REPORTED AT THIS TIME OF CARE. Chief Complaint: Back Pain Time Seen by MD: 10:44 Primary Care Provider: SANDIP Reviewed Notes: Nurses Notes, Medications, Allergies Allergies: Coded Allergies: NO KNOWN ALLERGIES (Unverified , 02/02/24) Home Meds Active Scripts Dicyclomine Hcl (BENTYL CAPSULE) 10 Mg Cp, 1 CAP PO TIDPRN PRN for 7 Days, #30 CAP 0 Refills Prov:KAT GRANT MD 06/11/24 Hydrocodone-Acetaminophen (Hydrocodone Bitartrate/AC 10-325 mg) 1 Tab Tab, 1 TAB PO TIDPRN PRN for 6 Days, #18 TAB 0 Refills Prov:KAT GRANT MD 06/11/24 Reported Medications Metronidazole (Metronidazole) 500 Mg Tab, 1 TAB PO TID 06/10/24 Ciprofloxacin HCl (Ciprofloxacin Hydrochlori) 500 Mg Tab, 1 TAB PO BID 06/10/24 Tamsulosin HCl (Tamsulosin Hydrochloride) 0.4 Mg Cap, 0.4 MG PO DAILY, CAP 06/05/24 Information Source: Patient Mode of Arrival: Ambulatory Timing: Hours Duration: Since onset Location of Back pain: (B) Lower back Severity: Moderate Prehospital treatment: None Quality: Aching, Sharp Onset: Spontaneous History of: Chronic Back Pain, Other (HX OF KIDNEY CANAER ) Modifying Factors: Movement Associated signs and symptoms: None Past Medical History PAST MEDICAL HISTORY: Cancer, Depression, Kidney Stones Past Medical History (Other): BPH Surgical History: Denies all surgeries Family History Family History: Reviewed,noncontributory to illness Social History Smoker: Non-Smoker Alcohol: Denies ETOH Use Drugs: Denies Drug Use Lives In: Home Constitutional: denies: chills, diaphoresis, fatigue, fever, malaise, sweats, weakness, others EENTM: denies: blurred vision, double vision, ear bleeding, ear discharge, ear drainage, ear pain, ear ringing, eye pain, eye redness, hearing loss, mouth pain, mouth swelling, nasal discharge, nose bleeding, nose congestion, nose pain, photophobia, tearing, throat pain, throat swelling, voice changes, others Respiratory: denies: cough, hemoptysis, orthopnea, SOB at rest, shortness of breath, SOB with excertion, stridor, wheezing, others Cardiovascular: denies: chest pain, dizzy spells, diaphoresis, Dyspnea on exertion, edema, irregular heart beat, left arm pain, lightheadedness, palpitations, PND, syncope, others Gastrointestinal: denies: abdomen distended, abdominal pain, blood streaked bowels, constipated, diarrhea, dysphagia, difficulty swallowing, hematemesis, melena, nausea, poor appetite, poor fluid intake, rectal bleeding, rectal pain, vomiting, others Genitourinary: denies: burning, dysuria, flank pain, frequency, hematuria, incontinence, penile discharge, penile sore, pain, testicle pain, testicle swelling, urgency, others Neurological: denies: dizziness, fainting, headache, left sided numbness, left sided weakness, numbness, paresthesia, pre-existing deficit, right sided numbness, right sided weakness, seizure, speech problems, tingling, tremors, weakness, others Musculoskeletal: reports: back pain, muscle pain; denies: gout, joint pain, j oint swelling, muscle stiffness, neck pain, others Integumetry: denies: bruises, change in color, change in hair/nails, dryness, laceration, lesions, lumps, rash, wounds, others Allergic/Immunocompromised: denies: Difficulty Healing, Frequent Infections, Hives, Itching, others Hematologic/Lymphatic: denies: anemia, blood clots, easy bleeding, easy bruising, swollen glands, others Endocrine: denies: excessive hunger, excessive sweating, excessive thirst, excessive urination, flushing, intolerance to cold, intolerance to heat, unexplained weight gain, unexplained weight loss, others Psychiatric: denies: anxiety, bipolar disorder, depression, hopeless, panic disorder, schizophrenia, sleepless, suicidal, others All Other Systems: Reviewed and Negative Physical Exam General Appearance: No Apparent Distress, Normal HEENT: Normal ENT Inspection, PERRL/EOMI, Pharynx Normal, TMs Normal Neck: Full Range of Motion, Non-Tender, Normal, Normal Inspection Respiratory: Chest Non-Tender, Lungs Clear, No Accessory Muscle Use, No Respiratory Distress, Normal Breath Sounds Cardiovascular: No Edema, No JVD, No Murmur, No Gallop, Normal Peripheral Pulses, Regular Rate/Rhythm Breast Exam: Deferred Gastrointestinal: No Organomegaly, Non Tender, No Pulsatile Mass, Normal Bowel Sounds, Soft Genitalia: Deferred Pelvic: Deferred Rectal: Deferred Extremities: No calf tenderness, Normal capillary refill, Normal inspection, Normal range of motion, Non-tender, No pedal edema Musculoskeletal : Location: Bilateral Extremity Location: Back Apperance: Tenderness: Moderate (TENDERNESS LOW BACK WITH GUARDING, NO BONY TENDERNESS AND SWELLING, NO DEFORMITY. ) Neurologic: Alert, dried fruit washer II-XII nml as Tested, No Motor Deficits, Normal Affect, Normal Mood, No Sensory Deficits Cerebellar Function: Normal Reflexes: Normal Skin: Dry, Normal Color, Warm Peripheral Pulses: 2+ carotid (R), 2+ carotid (L), 2+ dorsalis pedis (R), 2+ dorsalis pedis (L) Lymphatic: No Adenopathy Was a procedure done? Was a procedure done?: No Back Pain Differential Dx Differential Diagnosis: Musculoskeletal Pain, Pyelonephritis, Urolithiasis, Other (INTRACTABLE LOW BACK PAIN ) X-Ray, Labs, Meds, VS Vital Signs Date Time Temp Pulse Resp B/P (MAP) Pulse Ox O2 Delivery O2 Flow Rate FiO2 08/19/24 10:39 87 18 96 Room Air 08/19/24 10:39 99.8 87 18 125/56 (79) 87 99.8 08/19/24 10:30 99.8 87 18 125/56 (79) 96 99.8 Lab Test 08/19/24 11:14 08/19/24 10:53 Range/Units White Blood Count 12.8 H 4.4-10.8 10^3/uL Red Blood Count 3.01 L 4.5-5.90 10^6/uL Hemoglobin 7.9 L 13.5-17.5 g/dL Hematocrit 24.9 L 41.0-53.0 % Mean Corpuscular Volume 83.0 80.0-100.0 fL Mean Corpuscular Hemoglobin 26.4 L 28.0-32.0 pg Mean Corpuscular Hemoglobin Concent 31.8 L 32.0-36.0 g/dL Red Cell Distribution Width 17.8 H 11.8-14.3 % Platelet Count 816 *H 140-450 10^3/uL Mean Platelet Volume 6.2 L 6.9-10.8 fL Neutrophils (%) (Auto) 81.6 H 37.0-80.0 % Lymphocytes (%) (Auto) 7.4 L 10.0-50.0 % Monocytes (%) (Auto) 10.0 0.0-12.0 % Eosinophils (%) (Auto) 0.5 0.0-7.0 % Basophils (%) (Auto) 0.5 0.0-2.0 % Neutrophils # (Auto) 10.5 H 1.6-8.6 10 ^3/uL Lymphocytes # (Auto) 0.9 0.4-5.4 10 ^3/uL Monocytes # (Auto) 1.3 0-1.3 10 ^3/uL Eosinophils # (Auto) 0.1 0-0.8 10 ^3/uL Basophils # (Auto) 0.1 0-0.2 10 ^3/uL Nucleated Red Blood Cells 0.0 % Sodium Level 135 L 136-145 mmol/L Potassium Level 4.3 3.5-5.1 mmol/L Chloride Level 102 98-107 mmol/L Carbon Dioxide Level 25 20-31 mmol/L Anion Gap 8 5-15 Blood Urea Nitrogen 15 9-23 mg/dL Creatinine 0.70 0.700-1.30 mg/dL Glomerular Filtration Rate Calc 95 >90 mL/min BUN/Creatinine Ratio 21.4 H 10.0-20.0 Serum Glucose 103 74-106 mg/dL Calcium Level 9.2 8.7-10.4 mg/dL B-Type Natriuretic Peptide 156.65 0-100 pg/mL Urine Color Yellow Yellow Urine Clarity Clear Clear Urine pH 6.5 5.0-9.0 Urine Specific [place] 1.031 1.001-1.035 Urine Protein Trace H Negative Urine Ketones Negative Negative Urine Blood Negative Negative /uL Urine Nitrite Negative Negative Urine Bilirubin Negative Negative Urine Urobilinogen Normal Negative mg/dL Urine Leukocyte Esterase Negative Negative /uL Urine RBC 5 0 - 3 /hpf Urine Microscopic WBC 4 H 0-3 /HPF Urine Squamous Epithelial Cells None seen <5 /hpf Urine Bacteria None seen None Seen /hpf Urine Glucose Normal Normal mg/dL Current Medications Medications (Trade) Dose Ordered Sig/Vinnie Route Start Time Stop Time Status Last Admin Sodium Chloride 1,000 ml @ 1,000 mls/hr Q1H ONCE IV 08/19/24 13:00 08/19/24 13:59 DC 08/19/24 13:23 CT ABD/PEL: FINDINGS: LUNG BASES: Unremarkable. No mass. No consolidation. PLEURAL SPACE: Bilateral pleural effusions. ABDOMEN: LIVER: Hepatomegaly with fatty infiltration. GALLBLADDER AND BILE DUCTS: Unremarkable. No calcified stones. No ductal dilation. PANCREAS: Unremarkable. No ductal dilation. SPLEEN: Unremarkable. No splenomegaly. ADRENALS: Unremarkable. No mass. KIDNEYS AND URETERS: Enlarged lobulated left kidney with calculus. Further e valuation is limited without IV contrast. STOMACH AND BOWEL: Fecal retention in the colon consistent with constipation. Colonic diverticulosis without acute diverticulitis. No obstruction. PELVIS: APPENDIX: No findings to suggest acute appendicitis. BLADDER: Unremarkable. No stones. REPRODUCTIVE: Unremarkable as visualized. ABDOMEN and PELVIS: INTRAPERITONEAL SPACE: Unremarkable. No free air. No significant fluid collection. BONES/JOINTS: No acute fracture. No dislocation. SOFT TISSUES: Unremarkable. VASCULATURE: Scattered calcified atherosclerotic disease of aorta. No abdominal aortic aneurysm. LYMPH NODES: Unremarkable. No enlarged lymph nodes. OTHER FINDINGS: . . IMPRESSION: 1. Bilateral pleural effusions. 2. Hepatomegaly with fatty infiltration. 3. Fecal retention in the colon consistent with constipation. 4. Colonic diverticulosis without acute diverticulitis. X-Ray, Labs, Meds, VS Comment EXTERNAL MEDICAL RECORDS REVIEWED: [NONE] INDEPENDENT HISTORIANS: [NONE] SOCIAL DETERMINANTS OF HEALTH: [NONE] LABS ORDERED: CBC, BMP, UA, URINE CULTURE, BNP RESULTS: WBC 12.8, PLT 816, HGB 7.9 REVIEWED AND INTERPRETED RESULTS: CT ABD/PEL, CHEST XR IMAGING ORDERED: CT ABD/PEL, CHEST XR TREATMENTS ORDERED: MORPHINE 2MG IV, ZOFRAN 4MG IV, ROCEPHIN 1G IV, 0.9 NS 1L PROCEDURES PERFORMED: NONE CRITICAL CARE TIME: NONE I HAVE DISCUSSED THE PATIENT WITH THE ATTENDING PHYSICIAN DR. BRITO AND HE AGREES WITH THE PATIENT'S PLAN OF CARE AND DISPOSITION. PATIENT AGREES TO BE ADMITTED TO THE HOSPITAL AT THIS TIME FOR FURTHER INPATIENT EVALUATION AND TREATMENT. Images Reviewed?: Images reviewed and evaluated by me Time of 1ST Reevaluation: 11:00 Reevaluation 1ST: Unchanged Time of 2ND Reevaluation: 13:34 Reevaluation 2ND: Unchanged Patient Education/Counseling: Diagnosis, Treatment Family Education/Counseling: Diagnosis, Treatment, No Family Present Departure 1 Departure Time of Disposition: 13:34 Impression: Primary Impression: Intractable low back pain Additional Impressions: Left renal stone Cancer of left kidney Disposition: ADMITTED INPATIENT Condition: Serious Critical Care Note Critical Care Time?: No Stability Stability form required: Yes Unstable for transfer: Requires medication, ED Physician Assesment, Possible rapid decline Heart Score Heart Score: Heart Score Response (Comments) Value History N/A 0 EKG N/A 0 Age N/A 0 Risk Factors N/A 0 Troponin N/A 0 Total 0 I personally scribed for SALLY HERZOG ([email or web address]) on 08/19/24 at 10:53. Electronically submitted by Hema Berger ([email or web address]). I personally scribed for SALLY HERZOG ([email or web address]) on 08/19/24 at 11:38. Electronically submitted by Hema Berger ([email or web address]). I personally scribed for SALLY HERZOG ([email or web address]) on 08/19/24 at 12:20. Electronically submitted by eHma Berger ([email or web address]). SALLY HERZOG August 19, 2024 10:53
[2024-08-19 11:26] LABS: Urine Bacteria None Seen /hpf (None Seen)
--- NOTE | 2024-08-19 11:31 | DVH ---
EXAM: CT Abdomen and Pelvis Without Intravenous Contrast CLINICAL INDICATION: LOW BACK PAIN, HX OF KIDNEY CANCER TECHNIQUE: Axial computed tomography images of the abdomen and pelvis without intravenous contrast. This CT exam was performed using one or more of the following dose reduction techniques: automated exposure control, adjustment of the mA and/or kV according to patient size, and/or use of iterative r econstruction technique. CONTRAST: RADIATION DOSE: CTDIvol = 7.33 mGy, DLP = 419.69 mGy-cm COMPARISON: CT CT AB PEL WO CON-NO ORAL OR IV on DOS: 06/04/24 FINDINGS: LUNG BASES: Unremarkable. No mass. No consolidation. PLEURAL SPACE: Bilateral pleural effusions. ABDOMEN: LIVER: Hepatomegaly with fatty infiltration. GALLBLADDER AND BILE DUCTS: Unremarkable. No calcified stones. No ductal dilation. PANCREAS: Unremarkable. No ductal dilation. SPLEEN: Unremarkable. No splenomegaly. ADRENALS: Unremarkable. No mass. KIDNEYS AND URETERS: Enlarged lobulated left kidney with calculus. Further evaluation is limited w ithout IV contrast. STOMACH AND BOWEL: Fecal retention in the colon consistent with constipation. Colonic diverticulos is without acute diverticulitis. No obstruction. PELVIS: APPENDIX: No findings to suggest acute appendicitis. BLADDER: Unremarkable. No stones. REPRODUCTIVE: Unremarkable as visualized. ABDOMEN and PELVIS: INTRAPERITONEAL SPACE: Unremarkable. No free air. No significant fluid collection. BONES/JOINTS: No acute fracture. No dislocation. SOFT TISSUES: Unremarkable. VASCULATURE: Scattered calcified atherosclerotic disease of aorta. No abdominal aortic aneurysm. LYMPH NODES: Unremarkable. No enlarged lymph nodes. OTHER FINDINGS: . . IMPRESSION: 1. Bilateral pleural effusions. 2. Hepatomegaly with fatty infiltration. 3. Fecal retention in the colon consistent with constipation. 4. Colonic diverticulosis without acute diverticulitis.
[2024-08-19 11:32] LABS: Eosinophils # (auto) 0.1 10 ^3/uL (0-0.8); Mean Corpuscular Hemoglobin 26.4 pg (28.0-32.0); Red Blood Cells 3.01 10^6/uL (4.5-5.90)
[2024-08-19 11:34] LABS: Basophils # (auto) 0.1 10 ^3/uL (0-0.2); Basophils % (auto) 0.5 % (0.0-2.0); Chloride 102 mmol/L (98-107); Eosinophils % (auto) 0.5 % (0.0-7.0); Hematocrit 24.9 % (41.0-53.0); Hemoglobin 7.9 g/dL (13.5-17.5); Lymphocytes # (auto) 0.9 10 ^3/uL (0.4-5.4); Lymphocytes % (auto) 7.4 % (10.0-50.0); Mean Corpuscular Hgb Conc. 31.8 g/dL (32.0-36.0); Monocytes # (auto) 1.3 10 ^3/uL (0-1.3); Neutrophils # (auto) 10.5 10 ^3/uL (1.6-8.6); Neutrophils % (auto) 81.6 % (37.0-80.0); Potassium 4.3 mmol/L (3.5-5.1); Red Cell Distribution Width 17.8 % (11.8-14.3); White Blood Cell 12.8 10^3/uL (4.4-10.8)
[2024-08-19 11:35] LABS: Anion Gap 8 (5-15); Calcium 9.2 mg/dL (8.7-10.4); Carbon Dioxide 25 mmol/L (20-31)
[2024-08-19 11:38] LABS: Sodium 135 mmol/L (136-145)
[2024-08-19 11:40] LABS: Glucose 103 mg/dL (74-106)
[2024-08-19 11:41] LABS: BUN/Creatinine Ratio 21.4 (10.0-20.0); Blood Urea Nitrogen 15 mg/dL (9-23)
[2024-08-19 11:46] LABS: Platelet Count (auto) 816 10^3/uL (140-450)
[2024-08-19 11:47] LABS: Urine Blood Negative /uL (Negative); Urine Clarity Clear (Clear); Urine Color Yellow (Yellow); Urine Protein, UAD TRACE (Negative); Urine Specific Gravity 1.031 (1.001-1.035); Urine Squamous Epithelial Cell None Seen /hpf (<5); Urine Urobilinogen Normal (Negative); Urine WBC 4 /HPF (0-3); Urine pH 6.5 (5.0-9.0)
[2024-08-19] MEDS: MORPHINE SULFATE INJ 2 MG/ml SYRG IV ONE (12:15)
[2024-08-19] MEDS: ONDANSETRON HCL 4 MG/2 ML VIAL IV ONE (12:15)
[2024-08-19] MEDS: cefTRIAXone 1GM/50ML D5W 50 ML IV ONE (12:15)
--- NOTE | 2024-08-19 12:49 | DVH ---
XY CHEST TWO VIEWS ROUTINE, HISTORY: BACK PAIN COMPARISON: None None TECHNICAL DATA: 2 view of the chest was obtained. FINDINGS: Lines and tubes: None Cardiomediastinal silhouette: normal Pulmonary vasculature: normal Lung expansion: normal Lung airspace: normal Lung interstitium: normal Pleura: Small left pleural effusion. Pneumothorax: no Bones: Unremarkable Other: no IMPRESSION: Small left pleural effusion.
[2024-08-19] MEDS: SODIUM CHLORIDE 0.9% 1,000 ML IV ONE (13:23)
--- NOTE | 2024-08-19 14:24 | DVHHP2 ---
History of Present Illness Reason for Visit: Low back pain History of Present Illness 74-year-old male past medical history kidney cancer we will get a surgery August 29, 2024 at [facility] blood transfusion in the past depression kidney stones BPH questionable esophageal neoplasm renal mass chief complaint patient comes in with low back pain that started today it was paraspinal lower lumbar was so severe patient states he takes [place] at home it did not help him with his pain patient denies any pain with urination no bowel incontinence no urinary incontinence patient states the pain is aching in nature nothing makes it better nothing makes it worse he denies any chest pain no shortness with the breath when evaluating patient's labs and imaging from ED normal saline was given Zofran morphine ceftriaxone was also provided white count was 12.8 sodium was 135 hemoglobin was 7.9 24.9 platelet count was 816 BNP was 156.[address] scan abdomen pelvis shows hepatomegaly with fatty constipation and diverticulosis chest x-ray shows small left pleural effusion did reviewed echocardiogram from June 08, 2024 EF was 60% with these findings we will admit patient for further workup no fever so no need for antibiotics at this time we will monitor Past Medical History See HPI above Past Surgical History See HPI above Family History Reviewed, non-contributory to the management of this case. Past Social History Patient does smoke marijuana but denies drug or alcohol use Review of Systems Constitutional: No: Fever, Chills, Sweats, Weakness, Malaise, Other Eyes: No: Pain, Vision change, Conjunctivae inflammation, Eyelid inflammation, Other, Redness ENT: No: Ear pain, Ear discharge, Nose pain, Nose discharge, Nose congestion, Mouth pain, Mouth swelling, Throat pain, Throat swelling, Other Respiratory: No: Cough, Dry, Shortness of breath, SOB with excertion, Wheezing, Hemoptysis, Pleuritic Pain, Sputum, Wheezing, Other Cardiovascular: No: Chest Pain, Palpitations, Orthopnea, Paroxysmal Noc. Dyspnea, Edema, Lt Headedness, Other Gastrointestinal: No: Nausea, Vomiting, Abdominal Pain, Diarrhea, Constipation, Melena, Hematochezia, Other Genitourinary: No Dysuria, No Frequency, No Incontinence, No Hematuria, No Retention, No Other Musculoskeletal: No: other, neck pain, shoulder pain, arm pain, back pain, hand pain, leg pain, foot pain Skin: No: Rash, Lesions, Jaundice, Bruising, Other Neurological: Weakness, Numbness; No: Incoordination, Change in speech, Confusion, Seizures, Other Allergies: Coded Allergies: NO KNOWN ALLERGIES (Unverified , 02/02/24) Exam Vital Signs Vital Signs Date Time Temp Pulse Resp B/P (MAP) Pulse Ox O2 Delivery O2 Flow Rate FiO2 08/19/24 10:39 87 18 96 Room Air 08/19/24 10:39 99.8 125/56 (79) 99.8 General Appearance: Alert, Oriented X3, Cooperative, No acute distress HEENT: Atraumatic, PERRLA, EOMI, Mucous membr. moist/pink Respiratory: Clear to auscultation, Normal air movement Cardiovascular: Regular rate, Normal S1, Normal S2, No murmurs Abdominal: Normal bowel sounds, Soft, No tenderness, No hepatospenomegaly, No masses Extremities: No clubbing, No cyanosis, No edema, Normal pulses, No tenderness/swelling Skin: No rashes, No breakdown, No significant lesion Neuro: Normal gait, Normal speech, Normal tone, Sensation intact, Cranial nerves 3-12 NL, Other (paraspinal tenderness ) Psych/Mental Status: Mental status NL, Mood NL Labs/Xrays CT scan of the abdomen pelvis shows hepatomegaly with fatty constipation di verticulosis Chest x-ray shows small left pleural effusion with I reviewed labs, imaging CT scan abdomen pelvis, EKG and all diagnostic studies on this patient from ED records and the medical chart Labs Test 08/19/24 11:14 08/19/24 10:53 Range/Units White Blood Count 12.8 H 4.4-10.8 10^3/uL Red Blood Count 3.01 L 4.5-5.90 10^6/uL Hemoglobin 7.9 L 13.5-17.5 g/dL Hematocrit 24.9 L 41.0-53.0 % Mean Corpuscular Volume 83.0 80.0-100.0 fL Mean Corpuscular Hemoglobin 26.4 L 28.0-32.0 pg Mean Corpuscular Hemoglobin Concent 31.8 L 32.0-36.0 g/dL Red Cell Distribution Width 17.8 H 11.8-14.3 % Platelet Count 816 *H 140-450 10^3/uL Mean Platelet Volume 6.2 L 6.9-10.8 fL Neutrophils (%) (Auto) 81.6 H 37.0-80.0 % Lymphocytes (%) (Auto) 7.4 L 10.0-50.0 % Monocytes (%) (Auto) 10.0 0.0-12.0 % Eosinophils (%) (Auto) 0.5 0.0-7.0 % Basophils (%) (Auto) 0.5 0.0-2.0 % Neutrophils # (Auto) 10.5 H 1.6-8.6 10 ^3/uL Lymphocytes # (Auto) 0.9 0.4-5.4 10 ^3/uL Monocytes # (Auto) 1.3 0-1.3 10 ^3/uL Eosinophils # (Auto) 0.1 0-0.8 10 ^3/uL Basophils # (Auto) 0.1 0-0.2 10 ^3/uL Nucleated Red Blood Cells 0.0 % Sodium Level 135 L 136-145 mmol/L Potassium Level 4.3 3.5-5.1 mmol/L Chloride Level 102 98-107 mmol/L Carbon Dioxide Level 25 20-31 mmol/L Anion Gap 8 5-15 Blood Urea Nitrogen 15 9-23 mg/dL Creatinine 0.70 0.700-1.30 mg/dL Glomerular Filtration Rate Calc 95 >90 mL/min BUN/Creatinine Ratio 21.4 H 10.0-20.0 Serum Glucose 103 74-106 mg/dL Calcium Level 9.2 8.7-10.4 mg/dL B-Type Natriuretic Peptide 156.65 0-100 pg/mL Urine Color Yellow Yellow Urine Clarity Clear Clear Urine pH 6.5 5.0-9.0 Urine Specific [place] 1.031 1.001-1.035 Urine Protein Trace H Negative Urine Ketones Negative Negative Urine Blood Negative Negative /uL Urine Nitrite Negative Negative Urine Bilirubin Negative Negative Urine Urobilinogen Normal Negative mg/dL Urine Leukocyte Esterase Negative Negative /uL Urine RBC 5 0 - 3 /hpf Urine Microscopic WBC 4 H 0-3 /HPF Urine Squamous Epithelial Cells None seen <5 /hpf Urine Bacteria None seen None Seen /hpf Urine Glucose Normal Normal mg/dL Assessment/Plan Assessment/Plan acute intractable low back pain ct abd pelvic no lumbar etiology ordered morphine as needed for pain consider ortho spine consult if worsening neuro checks q4h can consider PT eval for discharge planning acute constipation ordered miralax for now acute on chronic anemia likely from kidney cancer ordered occult blood ordered 1 unit of prbc's since with anemia acute thrombocytosis can be from kidney cancer monitor can consider hemo consult acute hepatomegaly with fatty liver normal lft consider outpt follow up with gi diet change educated acute small bilateral pleural effusion no change from ct scan on 06/06/24 bnp 156.65 no resp distress no need to drain monitor for resp distress pt had echo completed on 06/08/24 ef 60% chronic problems kidney cancer pending surgery 08/29/24 depression kidney stones bph ?esophageal neoplasm fen/ppx diet ivf scd no gi ppx since no hx of gerds or gi bleed plan admit to medicine pain management Plan discussed with: Patient Date of Service: August 19, 2024 Billing Provider: RUTHIE TORRES DNP Common Visit Codes: [id number] INP/OBS CARE (HIGH) RUTHIE TORRES DNP August 19, 2024 14:24
[2024-08-19] MEDS ORDERED: POLYETHYLENE GLYCOL 17 GM PWDR PO PRN (15:30)
[2024-08-19] MEDS ORDERED: NITROGLYCERIN 0.4 MG SL TAB SL PRN (15:30)
[2024-08-19] MEDS ORDERED: ONDANSETRON HCL 4 MG/2 ML VIAL IV PRN (15:30)
[2024-08-19] MEDS ORDERED: DOCUSATE SOD 100 MG CAP PO PRN (15:30)
[2024-08-19] MEDS: POLYETHYLENE GLYCOL 17 GM PWDR PO ONE (16:43)
[2024-08-19] MEDS: MORPHINE SULFATE INJ 2 MG/ml SYRG IV PRN (18:12)
[2024-08-20 01:00] VITALS: BP 121/57; PULSE 73; RESP 17; TEMP 98.2; O2SAT 95
[2024-08-20 07:09] LABS: Basophils # (auto) 0.1 10 ^3/uL (0-0.2); Basophils % (auto) 0.4 % (0.0-2.0); Eosinophils # (auto) 0.1 10 ^3/uL (0-0.8); Eosinophils % (auto) 0.5 % (0.0-7.0); Hematocrit 25.3 % (41.0-53.0); Hemoglobin 8.2 g/dL (13.5-17.5); Lymphocytes # (auto) 1.1 10 ^3/uL (0.4-5.4); Lymphocytes % (auto) 8.9 % (10.0-50.0); Mean Corpuscular Hemoglobin 26.7 pg (28.0-32.0); Mean Corpuscular Hgb Conc. 32.4 g/dL (32.0-36.0); Mean Corpuscular Volume 82.4 fL (80.0-100.0); Monocytes # (auto) 1.3 10 ^3/uL (0-1.3); Monocytes % (auto) 11.3 % (0.0-12.0); Neutrophils # (auto) 9.4 10 ^3/uL (1.6-8.6); Neutrophils % (auto) 78.9 % (37.0-80.0); Nucleated Red Blood Cells % 0.1 %; Platelet Count (auto) 728 10^3/uL (140-450); Red Blood Cells 3.07 10^6/uL (4.5-5.90); Red Cell Distribution Width 17.2 % (11.8-14.3); White Blood Cell 11.9 10^3/uL (4.4-10.8)
[2024-08-20 07:32] LABS: Alanine Aminotransferase 13 U/L (7-40); Alkaline Phosphatase 100 U/L (46-116); Anion Gap 9 (5-15); BUN/Creatinine Ratio 18.5 (10.0-20.0); Blood Urea Nitrogen 12 mg/dL (9-23); Calcium 8.7 mg/dL (8.7-10.4); Carbon Dioxide 23 mmol/L (20-31); Chloride 102 mmol/L (98-107); Glucose 92 mg/dL (74-106); Potassium 4.4 mmol/L (3.5-5.1); Total Protein 6.3 g/dL (5.7-8.2)
[2024-08-20 07:34] LABS: Aspartate Aminotransferase 12 U/L (13-40); Bilirubin, Total 0.4 mg/dL (0.2-1.0); Sodium 134 mmol/L (136-145)
[2024-08-20 09:03] VITALS: BP 111/57; PULSE 87; RESP 18; TEMP 98; O2SAT 96
[2024-08-20] MEDS ORDERED: KETOROLAC TROMETH 30 MG/ML 1ML VIAL IV ONE (10:45)
[2024-08-20] MEDS ORDERED: BACLOFEN 10 MG TAB PO PRN (10:45)
[2024-08-20] MEDS: BACLOFEN 10 MG TAB PO SCH (11:34)
[2024-08-20 12:39] VITALS: BP 118/57; PULSE 79; RESP 18; TEMP 97.6; O2SAT 93
--- NOTE | 2024-08-20 16:00 | DVHPN2 ---
Subjective 08/20- patient complaining of 01/19 this a.m., got paged by RN, started patient baclofen 10 b.i.d.. Toradol p.r.n. IV 10 mg put for p.r.n. 1 time if needed. Patient pain appears to be better controlled with [place] in morphine and muscle relaxant baclofen. We will continue admission to observe 24 hours without any neurological/red flags of acute lower back pain. No signs of falls or trauma. Reviewed: H&P Changes from previous H/P or p: No Changes General: Per HPI Objective Vitals Vital Signs Date Time Temp Pulse Resp B/P (MAP) Pulse Ox O2 Delivery O2 Flow Rate FiO2 08/20/24 12:39 97.6 79 18 118/57 (77) 93 97.6 08/20/24 08:00 Room Air* 0 21 Intake/Output Intake and Output 08/20/24 07:00 Intake Total 300 ml Balance 300 ml Intake Oral 0 ml Blood Product 300 ml Exam GEN: Healthy appearing, well-developed, NAD. HEENT: NC/AT; MMM. CV: RRR, no m/r/g. LUNGS: CTAB, no w/r/c. ABD: Soft, NT/ND, NBS, no masses or organomegaly. EXT: skin Warm, well perfused. no rashes. No clubbing, cyanosis, or edema. S traight leg raise negative. Anal wink present. No perineum paresthesias. Lower extremity reflexes present, motor and sensory function intact NEURO: Ambulating with no limitations. No focal deficits. Medications Current Medications Medications Dose Ordered Sig/Vinnie Route Start Time Stop Time Status Last Admin Dose Admin Ondansetron HCl 4 mg Q4HP PRN IV 08/19/24 15:30 Morphine Sulfate 2 mg Q4HPRN PRN IV 08/19/24 15:30 08/20/24 06:14 2 MG Nitroglycerin 0.4 mg Q5MINP PRN SL 08/19/24 15:30 Baclofen 10 mg BID PO 08/20/24 11:00 08/20/24 11:34 10 MG Docusate Sodium 100 mg BID PO 08/20/24 22:00 Polyethylene Glycol 17 gm BID PO 08/20/24 22:00 Acetaminophen/ Hydrocodone Bitart 1 tab Q6HP PRN PO 08/20/24 14:00 Laboratory Results Laboratory Tests 08/20/24 06:10 Chemistry Test 08/20/24 06:10 Albumin 3.0 g/dL (3.2-4.8) L Calcium Level 8.7 mg/dL (8.7-10.4) Total Protein 6.3 g/dL (5.7-8.2) LFT Test 08/20/24 06:10 Alanine Aminotransferase (ALT) 13 U/L (7-40) Alkaline Phosphatase 100 U/L (46-116) Aspartate Amino Transferase (AST) 12 U/L (13-40) L Total Bilirubin 0.4 mg/dL (0.2-1.0) Urinalysis Test 08/19/24 10:53 Urine Color Yellow (Yellow) Urine Clarity Clear (Clear) Urine pH 6.5 (5.0-9.0) Urine Specific [place] 1.031 (1.001-1.035) Urine Protein Trace (Negative) H Urine Ketones Negative (Negative) Urine Blood Negative /uL (Negative) Urine Nitrite Negative (Negative) Urine Bilirubin Negative (Negative) Urine Urobilinogen Normal mg/dL (Negative) Urine Leukocyte Esterase Negative /uL (Negative) Urine RBC 5 /hpf (0 - 3) Urine Microscopic WBC 4 /HPF (0-3) H Urine Squamous Epithelial Cells None seen /hpf (<5) Urine Bacteria None seen /hpf (None Seen) Urine Glucose Normal mg/dL (Normal) Microbiology Microbiology Date/Time Source Procedure Growth Status 08/19/24 10:53 Voided Urine Urine Culture - Preliminary Resulted Labs and/or images reviewed: Labs reviewed by me, Image(s) reviewed by me Assessment/Plan Assessment/Plan 08/20- patient complaining of 01/19 this a.m., got paged by RN, started patient baclofen 10 b.i.d.. Toradol p.r.n. IV 10 mg put for p.r.n. 1 time if needed. Patient pain appears to be better controlled with [place] in morphine and muscle relaxant baclofen. We will continue admission to observe 24 hours without any neurological/red flags of acute lower back pain. No signs of falls or trauma. acute intractable low back pain acute constipation chronic anemia likely from kidney cancer thrombocytosis can be from kidney cancer hepatomegaly with fatty liver small bilateral pleural effusion no change from ct scan on 06/06/24 chronic problems kidney cancer pending surgery 08/29/24 depression kidney stones bph ?esophageal neoplasm -pain control PRN; [place] p.o., morphine IV -Toradol IV pushes only improved by hospitalist/primary team -Continue regular diet -Q.4h neuro checks - bedrest, ambulate with assistance only, -Continue home meds fen/ppx diet ivf scd no gi ppx since no hx of gerds or gi bleed Plan discussed with: Patient My Orders Orders - KAT GRANT MD Procedure Category Date Status Time Baclofen Tablet PHA 08/20/24 In Process (Liorisal Tablet) 11:00 Docusate Sodium PHA 08/20/24 In Process Capsule (Colace 22:00 Polyethylene Glycol PHA 08/20/24 In Process 17g Powder (Miralax 22:00 Lactated Ringer's PHA 08/20/24 In Process 20:00 Hydrocodone-Acet PHA 08/20/24 In Process 10/325mg Tab ([place] 14:00 Regular Diet DIET 08/20/24 Transmitted Dinner Date of Service: August 20, 2024 Billing Provider: KAT GRANT MD Common Visit Codes: [id number] INP/OBS CARE(HIGH) KAT GRANT MD August 20, 2024 16:00
[2024-08-20] MEDS: KETOROLAC TROMETH 30 MG/ML 1ML VIAL IV ONE (16:15)
[2024-08-20] MEDS: HYDROcodone-ACET 10/325MG TAB PO PRN (17:45)
[2024-08-20 20:00] VITALS: PULSE 78; RESP 18; O2SAT 95
[2024-08-20 21:00] VITALS: BP 117/54; PULSE 78; RESP 18; TEMP 98.1; O2SAT 93
[2024-08-20] MEDS: DOCUSATE SOD 100 MG CAP PO SCH (21:34)
[2024-08-20] MEDS: LACTATED RINGER'S 1,000 ML IV ONE (21:36)
[2024-08-20] MEDS: POLYETHYLENE GLYCOL 17 GM PWDR PO SCH (21:36)
[2024-08-21 08:26] LABS: Anion Gap 7 (5-15); Calcium 9.1 mg/dL (8.7-10.4); Carbon Dioxide 27 mmol/L (20-31); Chloride 99 mmol/L (98-107); Potassium 4.4 mmol/L (3.5-5.1)
[2024-08-21 08:32] VITALS: BP 102/60; PULSE 80; RESP 16; TEMP 98.4; O2SAT 96
[2024-08-21 08:32] LABS: BUN/Creatinine Ratio 21.1 (10.0-20.0); Blood Urea Nitrogen 15 mg/dL (9-23); Glucose 103 mg/dL (74-106)
[2024-08-21 08:35] LABS: Sodium 133 mmol/L (136-145)
--- NOTE | 2024-08-21 12:19 | DVH ---
INDICATION: back pain. r/o hydronphro, nephrolith TECHNIQUE: Multiple real-time sonographic images of the kidneys and bladder were obtained. COMPARISON: None FINDINGS: The right kidney measures 13 cm in length, which is normal in size. There is normal echogen icity of the right kidney. No hydronephrosis. There is a right renal cyst measuring 2.5 cm. The left kidney measures 11 cm in length, which is normal in size. There is normal echogenicity of th e left kidney. No hydronephrosis. Complex left renal cystic and solid mass measuring 8.2 cm. Urinary bladder is underdistended which limits evaluation. The prostate is heterogeneous and prominent measuring 35 cc. IMPRESSION: Complex left renal cystic and solid mass measuring 8.2 cm limited in evaluation on this exam. Recomm end further evaluation with MRI renal phase protocol. Enlarged prostate. Correlate with PSA.
[2024-08-21 12:30] VITALS: BP 110/59; PULSE 77; RESP 17; TEMP 98.2; O2SAT 96
--- NOTE | 2024-08-21 14:03 | DVHPN2 ---
Subjective 08/20- patient complaining of 01/19 this a.m., got paged by RN, started patient baclofen 10 b.i.d.. Toradol p.r.n. IV 10 mg put for p.r.n. 1 time if needed. Patient pain appears to be better controlled with [place] in morphine and muscle relaxant baclofen. We will continue admission to observe 24 hours without any neurological/red flags of acute lower back pain. No signs of falls or trauma. 08/21 no red flags of lower back pain. Patient ambulating although with difficulty. We will rule out spinal causes with MRI and get renal ultrasound to rule out hydronephrosis/nephrolithiasis. We will discharge as soon as MRI results have returned. Reviewed: H&P Changes from previous H/P or p: No Changes General: Per HPI Objective Vitals Vital Signs Date Time Temp Pulse Resp B/P (MAP) Pulse Ox O2 Delivery O2 Flow Rate FiO2 08/21/24 12:30 98.2 77 17 110/59 (76) 96 98.2 08/21/24 08:26 Room Air* 0 21 Intake/Output Intake and Output 08/21/24 07:00 Intake Total 1001 ml Balance 1001 ml Intake Oral 1001 ml # Voids 3 Exam GEN: Healthy appearing, well-developed, NAD. HEENT: NC/AT; MMM. CV: RRR, no m/r/g. LUNGS: CTAB, no w/r/c. ABD: Soft, NT/ND, NBS, no masses or organomegaly. EXT: skin Warm, well perfused. no rashes. No clubbing, cyanosis, or edema. S traight leg raise negative. Anal wink present. No perineum paresthesias. Lower extremity reflexes present, motor and sensory function intact NEURO: Ambulating with no limitations. No focal deficits. Medications Current Medications Medications Dose Ordered Sig/Vinnie Route Start Time Stop Time Status Last Admin Dose Admin Ondansetron HCl 4 mg Q4HP PRN IV 08/19/24 15:30 Morphine Sulfate 2 mg Q4HPRN PRN IV 08/19/24 15:30 08/20/24 06:14 2 MG Nitroglycerin 0.4 mg Q5MINP PRN SL 08/19/24 15:30 Baclofen 10 mg BID PO 08/20/24 11:00 08/21/24 09:12 10 MG Docusate Sodium 100 mg BID PO 08/20/24 22:00 08/21/24 09:12 100 MG Polyethylene Glycol 17 gm BID PO 08/20/24 22:00 08/21/24 09:12 17 GM Acetaminophen/ Hydrocodone Bitart 1 tab Q6HP PRN PO 08/20/24 14:00 08/21/24 09:53 1 TAB Laboratory Results Laboratory Tests 08/20/24 06:10 08/21/24 06:50 Chemistry Test 08/21/24 06:50 Calcium Level 9.1 mg/dL (8.7-10.4) Urinalysis Test 08/19/24 10:53 Urine Color Yellow (Yellow) Urine Clarity Clear (Clear) Urine pH 6.5 (5.0-9.0) Urine Specific [place] 1.031 (1.001-1.035) Urine Protein Trace (Negative) H Urine Ketones Negative (Negative) Urine Blood Negative /uL (Negative) Urine Nitrite Negative (Negative) Urine Bilirubin Negative (Negative) Urine Urobilinogen Normal mg/dL (Negative) Urine Leukocyte Esterase Negative /uL (Negative) Urine RBC 5 /hpf (0 - 3) Urine Microscopic WBC 4 /HPF (0-3) H Urine Squamous Epithelial Cells None seen /hpf (<5) Urine Bacteria None seen /hpf (None Seen) Urine Glucose Normal mg/dL (Normal) Microbiology Microbiology Date/Time Source Procedure Growth Status 08/19/24 10:53 Voided Urine Urine Culture - Final Complete Labs and/or images reviewed: Labs reviewed by me, Image(s) reviewed by me Assessment/Plan Assessment/Plan 08/20- patient complaining of 01/19 this a.m., got paged by RN, started patient baclofen 10 b.i.d.. Toradol p.r.n. IV 10 mg put for p.r.n. 1 time if needed. Patient pain appears to be better controlled with [place] in morphine and muscle relaxant baclofen. We will continue admission to observe 24 hours without any neurological/red flags of acute lower back pain. No signs of falls or trauma. 08/21 no red flags of lower back pain. Patient ambulating although with difficulty. We will rule out spinal causes with MRI and get renal ultrasound to rule out hydronephrosis/nephrolithiasis. We will discharge as soon as MRI results have returned. acute intractable low back pain acute constipation chronic anemia likely from kidney cancer thrombocytosis can be from kidney cancer hepatomegaly with fatty liver small bilateral pleural effusion no change from ct scan on 06/06/24 chronic problems kidney cancer pending surgery 08/29/24 depression kidney stones bph ?esophageal neoplasm -pain control PRN; [place] p.o., morphine IV -Toradol IV pushes only improved by hospitalist/primary team -Continue regular diet -Q.4h neuro checks - bedrest, ambulate with assistance only, -Continue home meds fen/ppx diet ivf scd no gi ppx since no hx of gerds or gi bleed Plan discussed with: Patient My Orders Orders - KAT GRANT MD Procedure Category Date Status Time Apply: DAVID 08/20/24 In Process 16:36 Lumbar Spine Wo MRI 08/21/24 Logged Contrast 10:51 Kidney US 08/21/24 Resulted 10:51 Methylprednisolone PHA 08/21/24 Logged Sod Succ (Solu Medrol 14:00 Date of Service: August 21, 2024 Billing Provider: KAT GRANT MD Common Visit Codes: [id number] INP/OBS CARE(HIGH) KAT GRANT MD August 21, 2024 14:03
[2024-08-21] MEDS: methylPREDNISolone SOD SUCC 40 MG/ML VL IV ONE (14:32)
--- NOTE | 2024-08-21 16:29 | DVH ---
MR lumbar spine without contrast HISTORY: unremit back pain TECHNIQUE: MR was performed with a surface coil at 1.5 T magnet. Sagittal, axial and coronal T1 and T 2-weighted images were obtained. FINDINGS: Lumbar vertebrae normal in height signal intensity and alignment. L1-2 no narrowing of the central canal and neural foramina L2-3 loss of disc height and signal intensity. No narrowing of the central canal and neural foramina L3-4 no narrowing of the central canal and neural foramina L4-5 no narrowing of the central canal and neural foramina L5-S1 no narrowing of the central canal and neural foramina Cord ends at T12-L1 and is normal in size and in signal intensity There is a mass seen surrounding the aorta and inferior vena cava near the thoracolumbar junction. Th ere is also a large mass off of the left kidney. IMPRESSION: 1. No evidence of disc herniation. No root compression 2. Retroperitoneal lymphadenopathy. Left renal mass suspicious for malignancy..
[2024-08-21 16:37] VITALS: BP 128/59; PULSE 77; RESP 17; TEMP 99; O2SAT 97
[2024-08-21 20:00] VITALS: PULSE 90; RESP 18; O2SAT 95
[2024-08-21 21:00] VITALS: BP 116/75; PULSE 90; RESP 18; TEMP 98.5; O2SAT 95
[2024-08-22 05:00] VITALS: BP 126/64; PULSE 79; RESP 18; TEMP 98.6; O2SAT 95
[2024-08-22 09:00] VITALS: BP 100/62; PULSE 83; RESP 17; TEMP 98.3; O2SAT 97
--- NOTE | 2024-08-22 10:33 | DVHDS2 ---
Discharge Summary Date of Admission August 19, 2024 at 15:20 Date of Discharge: August 22, 2024 Labs/Diagnostic Data: Laboratory Results Test 08/21/24 06:50 08/20/24 06:10 08/19/24 11:14 08/19/24 10:53 Sodium Level 133 mmol/L (136-145) Potassium Level 4.4 mmol/L (3.5-5.1) Chloride Level 99 mmol/L (98-107) Carbon Dioxide Level 27 mmol/L (20-31) Anion Gap 7 (5-15) Blood Urea Nitrogen 15 mg/dL (9-23) Creatinine 0.71 mg/dL (0.700-1.30) Glomerular Filtration Rate Calc 95 mL/min (>90) BUN/Creatinine Ratio 21.1 (10.0-20.0) Serum Glucose 103 mg/dL (74-106) Calcium Level 9.1 mg/dL (8.7-10.4) White Blood Count 11.9 10^3/uL (4.4-10.8) Red Blood Count 3.07 10^6/uL (4.5-5.90) Hemoglobin 8.2 g/dL (13.5-17.5) Hematocrit 25.3 % (41.0-53.0) Mean Corpuscular Volume 82.4 fL (80.0-100.0) Mean Corpuscular Hemoglobin 26.7 pg (28.0-32.0) Mean Corpuscular Hemoglobin Concent 32.4 g/dL (32.0-36.0) Red Cell Distribution Width 17.2 % (11.8-14.3) Platelet Count 728 10^3/uL (140-450) Mean Platelet Volume 6.1 fL (6.9-10.8) Neutrophils (%) (Auto) 78.9 % (37.0-80.0) Lymphocytes (%) (Auto) 8.9 % (10.0-50.0) Monocytes (%) (Auto) 11.3 % (0.0-12.0) Eosinophils (%) (Auto) 0.5 % (0.0-7.0) Basophils (%) (Auto) 0.4 % (0.0-2.0) Neutrophils # (Auto) 9.4 10 ^3/uL (1.6-8.6) Lymphocytes # (Auto) 1.1 10 ^3/uL (0.4-5.4) Monocytes # (Auto) 1.3 10 ^3/uL (0-1.3) Eosinophils # (Auto) 0.1 10 ^3/uL (0-0.8) Basophils # (Auto) 0.1 10 ^3/uL (0-0.2) Nucleated Red Blood Cells 0.1 % Total Bilirubin 0.4 mg/dL (0.2-1.0) Aspartate Amino Transferase (AST) 12 U/L (13-40) Alanine Aminotransferase (ALT) 13 U/L (7-40) Alkaline Phosphatase 100 U/L (46-116) Total Protein 6.3 g/dL (5.7-8.2) Albumin 3.0 g/dL (3.2-4.8) B-Type Natriuretic Peptide 156.65 pg/mL (0-100) Urine Color Yellow (Yellow) Urine Clarity Clear (Clear) Urine pH 6.5 (5.0-9.0) Urine Specific [place] 1.031 (1.001-1.035) Urine Protein Trace (Negative) Urine Ketones Negative (Negative) Urine Blood Negative /uL (Negative) Urine Nitrite Negative (Negative) Urine Bilirubin Negative (Negative) Urine Urobilinogen Normal mg/dL (Negative) Urine Leukocyte Esterase Negative /uL (Negative) Urine RBC 5 /hpf (0 - 3) Urine Microscopic WBC 4 /HPF (0-3) Urine Squamous Epithelial Cells None seen /hpf (<5) Urine Bacteria None seen /hpf (None Seen) Urine Glucose Normal mg/dL (Normal) Other Laboratory Tests 08/21/24 06:50 08/20/24 06:10 Brief Hx & Hospital Course: HPI: 74-year-old male past medical history kidney cancer we will get a surgery August 29, 2024 at [facility] blood transfusion in the past depression kidney stones BPH questionable esophageal neoplasm renal mass chief complaint patient comes in with low back pain that started today it was paraspinal lower lumbar was so severe patient states he takes [facility] at home it did not help him with his pain patient denies any pain with urination no bowel incontinence no urinary incontinence patient states the pain is aching in nature nothing makes it better nothing makes it worse he denies any chest pain no shortness with the breath when evaluating patient's labs and imaging from ED normal saline was given Zofran morphine ceftriaxone was also provided white count was 12.8 sodium was 135 hemoglobin was 7.9 24.9 platelet count was 816 BNP was 156.[address] scan abdomen pelvis shows hepatomegaly with fecal constipation and diverticulosis chest x-ray shows small left pleural effusion did reviewed echocardiogram from June 08, 2024 EF was 60% summary 74-year-old male with past medical history of renal cancer, presenting with intractable back pain. Patient has no red flags (no shooting pains down legs, no loss of motor or sensory control, no perineum paresthesias, no anal wink loss). Patient continues to have pain with decreased ability to perform ADLs. Patient is tried on muscle relaxants and p.r.n. pain control which is not controlling pain. CT abdomen pelvis taken given concern for acute abdomen but there is no significant finding except for prior we will findings of renal cancer. Further MRI lumbar done which confirms finding of only left renal mass. Renal ultrasound also taken to ruled out nephrolithiasis/hydronephrosis which also only shows left renal mass. Patient is given further muscle relaxants, steroids and p.r.n. pain control was eventually leads to improvement and patient is ambulating, tolerating p.o. by 08/22/2024 safe for discharge as per plan below discharge plan: - baclofen 10mg as needed. upto 3x/day - prednisone 40mg x4 days - continue exercises at home and remain ambulatory as tolerated - for pain OTC tylenol 1st line > OTC ibuprofen 2nd line > Rx norco 3rd line - followup with PCP to review discharge diagnosis: acute intractable low back pain, likely musculoskeletal and/or related to left renal mass ruled out nephrolithiasis and hydronephrosis acute constipation , resolving chronic anemia likely from kidney cancer thrombocytosis can be from kidney cancer hepatomegaly with fatty liver small bilateral pleural effusion no change from ct scan on 06/06/24 kidney cancer pending surgery 08/29/24 depression kidney stones bph history ?esophageal neoplasm Condition at Discharge: Fair Final Diagnosis/Problems List acute intractable low back pain, likely musculoskeletal and/or related to left renal mass ruled out nephrolithiasis and hydronephrosis acute constipation , resolving chronic anemia likely from kidney cancer thrombocytosis can be from kidney cancer hepatomegaly with fatty liver small bilateral pleural effusion no change from ct scan on 06/06/24 kidney cancer pending surgery 08/29/24 depression kidney stones bph history ?esophageal neoplasm Discharge Disposition: Home Discharge Statement: "Patient was advised to return to the ER or call 911 if any headaches, dizziness, shortness of breath, chest pain, abdominal pain, bleeding, fevers, or worsening of medical condition. Patient was counseled about treatment plan, medications, possible side effects, patient�verbalized understanding. All questions were answered to the best of my ability. This discharge took greater then 30 minutes in planning, reviewing documentation, counseling the patient, and discussing with other team members." ASSESSMENT ASSESSMENT Assessment Date of Service: August 22, 2024 Billing Provider: KAT GRANT MD Common Visit Codes: 71753-CWW/OBS DISCH DAY >30min KAT GRANT MD August 22, 2024 10:33
[2024-08-22] MEDS ORDERED: BACL10TA PO (11:44)
[2024-08-22] MEDS ORDERED: PRED20TA2 PO (11:44)
[2024-08-22 12:57] VITALS: BP 105/60; PULSE 88; RESP 18; TEMP 98.6; O2SAT 98
== END 2024-08-22 14:06 | disposition home or self-care (01) | DRG 687 ==
LOC: ER 10:20 → OVERFLOW 15:20 → WEST WING 15:33
PROVIDERS: ADMIT Hospitalist; ATTEND Hospitalist
PROC: 30233N1 Transfusion of Nonautologous Red Blood Cells into Peripheral Vein, Percutaneous Approach (ICD-10-PCS; principal; 2024-08-19)
DX: C64.2 Malignant neoplasm of left kidney, except renal pelvis (principal); J90 Pleural effusion, not elsewhere classified; K59.00 Constipation, unspecified; K57.30 Diverticulosis of large intestine without perforation or abscess without bleeding; D63.0 Anemia in neoplastic disease; N40.0 Benign prostatic hyperplasia without lower urinary tract symptoms; D75.838 Other thrombocytosis; F32.A Depression, unspecified; K76.0 Fatty (change of) liver, not elsewhere classified; R16.0 Hepatomegaly, not elsewhere classified; Z85.528 Personal history of other malignant neoplasm of kidney; Z79.891 Long term (current) use of opiate analgesic; Z79.2 Long term (current) use of antibiotics; Z79.899 Other long term (current) drug therapy; Z87.442 Personal history of urinary calculi
CPT/HCPCS: 36415; 71046; 72148; 74176; 76775; 80048; 80053; 81001; 83880; 85025; 86850; 86900; 86901; 86920; 87086; 96360; G0378; J1885; J2405

== ENCOUNTER → 2024-09-15 | Outpatient (CLI) | payer OTHER ==
[~2024-09-15] MED LIST changes: +BACL10TA PO; +PRED20TA2 PO
[2024-09-15 11:13] LABS: Urine Bacteria None Seen /hpf (None Seen)
[2024-09-15 11:24] LABS: Basophils # (auto) 0 10 ^3/uL (0-0.2); Basophils % (auto) 0.3 % (0.0-2.0); Eosinophils # (auto) 0 10 ^3/uL (0-0.8); Eosinophils % (auto) 0.4 % (0.0-7.0); Hematocrit 25.4 % (41.0-53.0); Hemoglobin 8.1 g/dL (13.5-17.5); Lymphocytes # (auto) 0.8 10 ^3/uL (0.4-5.4); Lymphocytes % (auto) 8.2 % (10.0-50.0); Mean Corpuscular Hemoglobin 26.6 pg (28.0-32.0); Mean Corpuscular Volume 83.2 fL (80.0-100.0); Monocytes # (auto) 1.1 10 ^3/uL (0-1.3); Monocytes % (auto) 11.7 % (0.0-12.0); Neutrophils # (auto) 7.7 10 ^3/uL (1.6-8.6); Neutrophils % (auto) 79.4 % (37.0-80.0); Nucleated Red Blood Cells % 0.1 %; Red Blood Cells 3.06 10^6/uL (4.5-5.90); Red Cell Distribution Width 18.3 % (11.8-14.3); White Blood Cell 9.7 10^3/uL (4.4-10.8)
[2024-09-15 11:31] LABS: Platelet Count (auto) 756 10^3/uL (140-450); Urine Blood 2+ /uL (Negative); Urine Clarity Clear (Clear); Urine Color Yellow (Yellow); Urine Mucus FEW (None Seen); Urine Protein, UAD TRACE (Negative); Urine Specific Gravity 1.035 (1.001-1.035); Urine Squamous Epithelial Cell None Seen /hpf (<5); Urine Urobilinogen Normal (Negative); Urine WBC 8 /HPF (0-3); Urine pH 5.5 (5.0-9.0)
[2024-09-15 11:39] LABS: INR 1.23 (0.9-1.15); Prothrombin Time 12.8 sec (9.3-11.8)
[2024-09-15 11:56] LABS: Anion Gap 8 (5-15); BUN/Creatinine Ratio 22.6 (10.0-20.0); Blood Urea Nitrogen 14 mg/dL (9-23); Calcium 9.1 mg/dL (8.7-10.4); Carbon Dioxide 26 mmol/L (20-31); Chloride 102 mmol/L (98-107); Glucose 106 mg/dL (74-106); LDL Cholesterol 32 mg/dL (< 100); Magnesium 1.8 mg/dL (1.6-2.6); Potassium 3.8 mmol/L (3.5-5.1); Sodium 136 mmol/L (136-145); Total Protein 6.3 g/dL (5.7-8.2); Triglycerides 74 mg/dL (< 150)
[2024-09-15 11:57] LABS: Cholesterol 60 mg/dL (< 200); Folate (Folic Acid) 12.46 ng/mL (>5.38); T3 Total 0.81 ng/mL (0.60-1.81)
[2024-09-15 11:59] LABS: Alanine Aminotransferase < 9 U/L (7-40); Albumin 3.2 g/dL (3.2-4.8); Alkaline Phosphatase 177 U/L (46-116); Aspartate Aminotransferase 9 U/L (13-40); Bilirubin, Total 0.2 mg/dL (0.2-1.0); HDL Cholesterol 15 mg/dL (40-59)
[2024-09-15 12:35] LABS: Uric Acid 4.6 mg/dL (3.7-9.2)
== END | disposition home or self-care (01) ==
LOC: LAB 10:40
PROVIDERS: ATTEND Internal Medicine
DX: Z01.812 Encounter for preprocedural laboratory examination (principal); E61.2 Magnesium deficiency; E78.49 Other hyperlipidemia; E55.9 Vitamin D deficiency, unspecified; E79.0 Hyperuricemia without signs of inflammatory arthritis and tophaceous disease; D51.9 Vitamin B12 deficiency anemia, unspecified; R68.89 Other general symptoms and signs; R82.998 Other abnormal findings in urine; R73.09 Other abnormal glucose; R94.6 Abnormal results of thyroid function studies; R82.90 Unspecified abnormal findings in urine
CPT/HCPCS: 36415; 80053; 80061; 81001; 82306; 82607; 82746; 83735; 84480; 84550; 85025; 85610; 85730; 87086

== ENCOUNTER 2024-10-28 10:59 | Inpatient (IN) | payer OTHER ==
[~2024-10-28] VITALS: Ht 188 cm; Wt 64.7 kg
--- NOTE | 2024-10-28 11:27 | ED.PDOC ---
History of Present Illness HPI Comments This is a 74 year old male brought in by son presenting to the ED with chief complaint of generalized weakness. Son reports that the patient has been experiencing generalized weakness with frequent falls for the past 3 days along with hematuria that started yesterday. 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 Patient denies any chest pain, headache, SOB, dizziness, fever, chills, dysuria, syncope, or any further complaints at this time. Chief Complaint: General Weakness Time Seen by MD: 11:19 Primary Care Provider: SANDIP Reviewed Notes: Nurses Notes, Medications, Allergies Allergies: Coded Allergies: NO KNOWN ALLERGIES (Unverified , 02/02/24) Home Meds Active Scripts Prednisone (Prednisone) 20 Mg Tab, 40 MG PO DAILY for 4 Days, #8 MG 0 Refills Prov:KAT GRANT MD 08/22/24 Baclofen (Baclofen) 10 Mg Tab, 10 MG PO TID PRN for 10 Days, #30 TAB 0 Refills Prov:KAT GRANT MD 08/22/24 Dicyclomine Hcl (BENTYL CAPSULE) 10 Mg Cp, 1 CAP PO TIDPRN PRN for 7 Days, #30 CAP 0 Refills Prov:KAT GRANT MD 06/11/24 Hydrocodone-Acetaminophen (Hydrocodone Bitartrate/AC 10-325 mg) 1 Tab Tab, 1 TAB PO TIDPRN PRN for 6 Days, #18 TAB 0 Refills Prov:KAT GRANT MD 06/11/24 Reported Medications Metronidazole (Metronidazole) 500 Mg Tab, 1 TAB PO TID 06/10/24 Ciprofloxacin HCl (Ciprofloxacin Hydrochlori) 500 Mg Tab, 1 TAB PO BID 06/10/24 Tamsulosin HCl (Tamsulosin Hydrochloride) 0.4 Mg Cap, 0.4 MG PO DAILY, CAP 06/05/24 Information Source: Patient, Relative (Son) Mode of Arrival: Ambulatory Severity: Moderate Timing: Days Duration: Since onset Prehospital treatment: None Past Medical History PAST MEDICAL HISTORY: Cancer, Depression, Kidney Stones Past Medical History (Other): Mesenteric Cancer Surgical History (Other): Left nephrectomy Family History Family History: Reviewed,noncontributory to illness Social History Smoker: Non-Smoker Alcohol: Denies ETOH Use Drugs: Denies Drug Use Lives In: Home Constitutional: reports: weakness; denies: chills, diaphoresis, fatigue, fever, malaise, sweats, others EENTM: denies: blurred vision, double vision, ear bleeding, ear discharge, ear drainage, ear pain, ear ringing, eye pain, eye redness, hearing loss, mouth pain, mouth swelling, nasal discharge, nose bleeding, nose congestion, nose pain, photophobia, tearing, throat pain, throat swelling, voice changes, others Respiratory: denies: cough, hemoptysis, orthopnea, SOB at rest, shortness of breath, SOB with excertion, stridor, wheezing, others Cardiovascular: denies: chest pain, dizzy spells, diaphoresis, Dyspnea on exertion, edema, irregular heart beat, left arm pain, lightheadedness, palpitations, PND, syncope, others Gastrointestinal: denies: abdomen distended, abdominal pain, blood streaked bowels, constipated, diarrhea, dysphagia, difficulty swallowing, hematemesis, melena, nausea, poor appetite, poor fluid intake, rectal bleeding, rectal pain, vomiting, others Genitourinary: reports: hematuria; denies: burning, dysuria, flank pain, frequency, incontinence, penile discharge, penile sore, pain, testicle pain, testicle swelling, urgency, others Neurological: denies: dizziness, fainting, headache, left sided numbness, left sided weakness, numbness, paresthesia, pre-existing deficit, right sided numbness, right sided weakness, seizure, speech problems, tingling, tremors, weakness, others Musculoskeletal: denies: back pain, gout, joint pain, joint swelling, muscle pain, muscle stiffness, neck pain, others Integumetry: denies: bruises, change in color, change in hair/nails, dryness, laceration, lesions, lumps, rash, wounds, others Allergic/Immunocompromised: denies: Difficulty Healing, Frequent Infections, Hives, Itching, others Hematologic/Lymphatic: denies: anemia, blood clots, easy bleeding, easy bruising, swollen glands, others Endocrine: denies: excessive hunger, excessive sweating, excessive thirst, excessive urination, flushing, intolerance to cold, intolerance to heat, unexplained weight gain, unexplained weight loss, others Psychiatric: denies: anxiety, bipolar disorder, depression, hopeless, panic disorder, schizophrenia, sleepless, suicidal, others All Other Systems: Reviewed and Negative Physical Exam General Appearance: Cachectic, Normal HEENT: Normal ENT Inspection, PERRL/EOMI Neck: NOT DONE Respiratory: Chest Non-Tender, Lungs Clear, No Accessory Muscle Use, No Respiratory Distress, Normal Breath Sounds Cardiovascular: No Edema, No Murmur, No Gallop, Normal Peripheral Pulses, Regular Rate/Rhythm Breast Exam: Deferred Gastrointestinal: No Organomegaly, Non Tender, No Pulsatile Mass, Normal Bowel Sounds, Soft, Other (Reducible umbilical hernia) Genitalia: Deferred Pelvic: Deferred Rectal: Deferred Extremities: Normal inspection, Normal range of motion, Non-tender, No pedal edema Musculoskeletal : Apperance: Normal Neurologic: Alert, No Motor Deficits, Normal Affect, Normal Mood Cerebellar Function: NOT DONE Reflexes: NOT DONE Skin: Dry, Normal Color, Warm Lymphatic: NOT DONE Was a procedure done? Was a procedure done?: No Differential Dx Considerations may include: Was, meningitis, encephalitis with this, UTI, metastases to the brain, metastases to bone, UTI X-Ray, Labs, Meds, VS Vital Signs Date Time Temp Pulse Resp B/P (MAP) Pulse Ox O2 Delivery O2 Flow Rate FiO2 10/28/24 12:07 65 17 98 Room Air* 0 21 10/28/24 11:30 65 17 106/54 (71) 98 10/28/24 11:18 77 10/28/24 11:17 97.8 76 20 95/47 (63) 96 97.8 Lab Test 10/28/24 13:48 10/28/24 11:25 10/28/24 11:24 Range/Units Urine Color Yellow Yellow Urine Clarity Clear Clear Urine pH 5.5 5.0-9.0 Urine Specific [place] 1.020 1.001-1.035 Urine Protein Negative Negative Urine Ketones Negative Negative Urine Blood 2+ H Negative /uL Urine Nitrite Negative Negative Urine Bilirubin Negative Negative Urine Urobilinogen Normal Negative mg/dL Urine Leukocyte Esterase Negative Negative /uL Urine RBC 18 0 - 3 /hpf Urine Microscopic WBC 10 H 0-3 /HPF Urine Squamous Epithelial Cells Few <5 /hpf Urine Bacteria None seen None Seen /hpf Urine Glucose Normal Normal mg/dL White Blood Count 9.0 4.4-10.8 10^3/uL Red Blood Count 2.98 L 4.5-5.90 10^6/uL Hemoglobin 8.3 L 13.5-17.5 g/dL Hematocrit 25.5 L 41.0-53.0 % Mean Corpuscular Volume 85.7 80.0-100.0 fL Mean Corpuscular Hemoglobin 27.9 L 28.0-32.0 pg Mean Corpuscular Hemoglobin Concent 32.6 32.0-36.0 g/dL Red Cell Distribution Width 17.4 H 11.8-14.3 % Platelet Count 579 H 140-450 10^3/uL Mean Platelet Volume 6.3 L 6.9-10.8 fL Neutrophils (%) (Auto) 79.9 37.0-80.0 % Lymphocytes (%) (Auto) 10.6 10.0-50.0 % Monocytes (%) (Auto) 8.6 0.0-12.0 % Eosinophils (%) (Auto) 0.5 0.0-7.0 % Basophils (%) (Auto) 0.4 0.0-2.0 % Neutrophils # (Auto) 7.2 1.6-8.6 10 ^3/uL Lymphocytes # (Auto) 1.0 0.4-5.4 10 ^3/uL Monocytes # (Auto) 0.8 0-1.3 10 ^3/uL Eosinophils # (Auto) 0 0-0.8 10 ^3/uL Basophils # (Auto) 0 0-0.2 10 ^3/uL Nucleated Red Blood Cells 0.1 % Sodium Level 136 136-145 mmol/L Potassium Level 3.3 L 3.5-5.1 mmol/L Chloride Level 97 L 98-107 mmol/L Carbon Dioxide Level 32 H 20-31 mmol/L Anion Gap 7 5-15 Blood Urea Nitrogen 26 H 9-23 mg/dL Creatinine 0.92 0.700-1.30 mg/dL Glomerular Filtration Rate Calc 86 >90 mL/min BUN/Creatinine Ratio 28.3 H 10.0-20.0 Serum Glucose 118 H 74-106 mg/dL Calcium Level 9.6 8.7-10.4 mg/dL Total Bilirubin 0.3 0.2-1.0 mg/dL Aspartate Amino Transferase (AST) 21 13-40 U/L Alanine Aminotransferase (ALT) 16 7-40 U/L Alkaline Phosphatase 116 46-116 U/L Total Protein 6.7 5.7-8.2 g/dL Albumin 3.3 3.2-4.8 g/dL Free Prostate Specific Antigen Pending Percent Free Prostate Specific Ag Pending Prostate Specific Antigen Total Pending POC Glucose 109 H 70-106 mg/dl X-Ray, Labs, Meds, VS Comment This 74-year-old male presents to the emergency room secondary to hematuria, increasing weakness and malaise. The patient has a history of renal cell carcinoma status post nephrectomy and a known mesenteric mass. The patient is not had his appointments with Oncology yet. The patient's son became concerned as he now has caridad hematuria and increasing malaise. His workup today was significant for multiple serious concern including anemia, hypokalemia, probably well azotemia, dehydration, hematuria, may just Tylenol lymphadenopathy or distant metastases, retroperitoneal lymphadenopathy initially metastases in and other findings. The patient is provided with IV hydration with potassium in the ED. He will be admitted for further workup management of his multiple life- threatening complaints. Time of 1ST Reevaluation: 12:19 Reevaluation 1ST: Unchanged Patient Education/Counseling: Diagnosis, Treatment Family Education/Counseling: Diagnosis, Treatment SEPSIS Sepsis Screen Recent Procedure: No On Antibiotic Therapy: No Respiratory Rate >20: No Heart Rate >90: No Temp<36 C (96.8 F) or >38.3 C: No SBP <90 or MAP <65 mmHG: No New Acute Mental Status Change: No Is the patient on CPAP, BIPAP,: No IV fluid challenge completed?: No Physician Orders Psa Total+% Free (10/28/24 11:15) Head Without Contrast (10/28/24 11:15) Chst Ab Pel Wo Con-No Iv/Oral (10/28/24 11:15) Electrocardigram (10/28/24 11:32) Vital Signs Date Time Temp Pulse Resp B/P (MAP) Pulse Ox O2 Delivery O2 Flow Rate FiO2 10/28/24 12:07 65 17 98 Room Air* 0 21 10/28/24 11:30 65 17 106/54 (71) 98 10/28/24 11:18 77 10/28/24 11:17 97.8 76 20 95/47 (63) 96 97.8 Laboratory Tests Test 10/28/24 11:25 White Blood Count 9.0 10^3/uL (4.4-10.8) Departure 1 Departure Time of Disposition: 14:15 Impression: Primary Impression: Anemia Additional Impressions: BPH (benign prostatic hyperplasia) Hyperkalemia Prerenal azotemia Dehydration Hematuria Mediastinal mass Retroperitoneal lymphadenopathy Disposition: ADMITTED INPATIENT Condition: Guarded Critical Care Note Critical Care Time?: No Stability Stability form required: No Heart Score Heart Score: Heart Score Response (Comments) Value History N/A 0 EKG N/A 0 Age N/A 0 Risk Factors N/A 0 Troponin N/A 0 Total 0 I personally scribed for SHITAL SALVADOR MD ([email or web address]) on 10/28/24 at 11:27. Electronically submitted by Hema Berger [email or web address]). SHITAL SALVADOR MD Oct 28, 2024 11:27
[2024-10-28 11:48] LABS: Hematocrit 25.5 % (41.0-53.0); Hemoglobin 8.3 g/dL (13.5-17.5); Mean Corpuscular Hemoglobin 27.9 pg (28.0-32.0); Mean Corpuscular Volume 85.7 fL (80.0-100.0); Nucleated Red Blood Cells % 0.1 %
[2024-10-28 12:06] LABS: Alanine Aminotransferase 16 U/L (7-40); Albumin 3.3 g/dL (3.2-4.8); Anion Gap 7 (5-15); BUN/Creatinine Ratio 28.3 (10.0-20.0); Calcium 9.6 mg/dL (8.7-10.4); Total Protein 6.7 g/dL (5.7-8.2)
[2024-10-28 12:07] VITALS: PULSE 65; RESP 17; O2SAT 98
[2024-10-28 12:07] LABS: Bilirubin, Total 0.3 mg/dL (0.2-1.0)
[2024-10-28 12:10] LABS: Carbon Dioxide 32 mmol/L (20-31); Chloride 97 mmol/L (98-107); Glucose 118 mg/dL (74-106); Potassium 3.3 mmol/L (3.5-5.1); Sodium 136 mmol/L (136-145)
[2024-10-28 12:11] LABS: Alkaline Phosphatase 116 U/L (46-116); Blood Urea Nitrogen 26 mg/dL (9-23)
--- NOTE | 2024-10-28 12:36 | DVH ---
CT HEAD WITHOUT CONTRAST INDICATION: confusion, hx of high grade renal ca s/p nephr EXAM DATE: 10/28/2024 11:46 AM COMPARISON: None RADIATION DOSE: CTDIvol: 55.01 mGy, DLP: 1084.04 mGy*cm PROCEDURE: CT scans of the head were obtained from the vertex to the skull base. Sagittal and coronal reconstructions were provided. All CT scans at this medical facility are performed using dose modulation techniques as appropriate t o a performed exam including the following: Automated exposure control was utilized; adjustment of th e MA and/or KV according to patient size; and use of iterative reconstruction technique. FINDINGS: There is sulcal and ventricular prominence. The brainshows normal morphology and cm-whi te matter differentiation, without intracranial hemorrhage, extra-axial fluid collection, mass effect or acute large vessel infarct. The ventricles are normal in size. The basal cisterns are patent. The skull and visible facial bones are intact. The paranasal sinuses, mastoid air cells and middle ear c avities are well-aerated. The soft tissues of the scalp are unremarkable. IMPRESSION: No acute intracranial abnormality.
--- NOTE | 2024-10-28 13:18 | DVH ---
EXAM: CT CHST AB PEL WO CON-NO IV/ORAL History: confusion and hematuria, hx of high grade renal ca s/p nephr Comparison Study: CT CT AB PEL WO CON-NO ORAL OR IV on DOS: 08/19/24 TECHNIQUE: Multidetector CT of the chest, abdomen and pelvis was performed from lower neck to pubic s ymphysis without the use of intravenous contrast. Coronal and sagittal multiplanar reformats were per formed by the technologist on a separate workstation. Radiation Dose Information: CT Dose: CTDI volume is 9.5 mGy. Dose-length product is 679.1 mGy*cm FINDINGS: Lower neck: Normal thyroid. Lungs: Mild emphysema. No suspicious pulmonary nodule. Central airways: Patent. Pleura: Small left and trace right pleural effusion. No pneumothorax. Heart/Vascular Structures: The heart is normal in size. Low-density blood pool relative to the myocar dium suggesting anemia. No pericardial effusion there is haziness of the mediastinal fat. Normal bryanna viet thoracic aorta and main pulmonary artery. Coronary artery calcifications. Lymph Nodes: Bulky mediastinal lymphadenopathy measures 9.9 cm. Liver: The liver is normal in size. Limited evaluation for hepatic masses due to unenhanced CT. Gallbladder and Biliary Tree: Gallbladder is unremarkable. No biliary ductal dilatation. Spleen: Unremarkable. Pancreas: Unremarkable. Adrenal Glands: Unremarkable. Kidneys: The left kidney is surgically absent since the prior CT from August 2024. Small foci of gas in the left nephrectomy bed adjacent to surgical clips. Right kidney is unremarkable. Bladder: Unremarkable. Bowel: Stomach is fat and distended. No small bowel wall thickening or dilatation. Colonic divertic ulosis without acute diverticulitis. Stool throughout the colon. Appendix not visualized. Peritoneum: There is ascites. Mesenteric edema. Lymphadenopathy: Bulky enlarged retroperitoneal lymph nodes left lateral to the aorta measuring 4.9 c m. Vasculature: The visualized abdominal aorta is normal in size and caliber. Evaluation of the vascular structures is limited due to lack of intravenous contrast. Pelvic Organs: Enlarged prostate. Musculoskeletal: No acute osseous abnormality. No suspicious bone lesion. Soft tissues: Body wall anasarca. IMPRESSION: 1. Limited study without intravenous contrast. 2. Mediastinal lymphadenopathy presumably metastatic. 3. Postsurgical changes from left nephrectomy. Pneumoperitoneum in the left renal fossa which may be postsurgical in nature. Please correlate with date of surgery. No fluid collection. 4. Metastatic retroperitoneal lymphadenopathy. 5. Prostatomegaly. 6. Body wall anasarca. Mesenteric edema which may reflect fluid overload. All CT scans at this medical facility are performed using dose modulation techniques as appropriate t o a performed exam including the following: Automated exposure control was utilized; adjustment of th e MA and/or KV according to patient size; and use of iterative reconstruction technique.
[2024-10-28 14:05] LABS: Urine Protein, UAD Negative (Negative)
[2024-10-28] MEDS: ONDANSETRON HCL 4 MG/2 ML VIAL IV ONE (14:52)
[2024-10-28] MEDS: MORPHINE SULFATE INJ 2 MG/ml SYRG IV ONE (14:53)
[2024-10-28] MEDS ORDERED: ONDANSETRON HCL 4 MG/2 ML VIAL IV PRN (15:00)
[2024-10-28] MEDS ORDERED: ACETAMINOPHEN 325 MG TAB PO PRN (15:00)
[2024-10-28] MEDS ORDERED: GABA-1250 PO (15:10)
[2024-10-28] MEDS ORDERED: ZOLP5TAB5 PO (15:10)
--- NOTE | 2024-10-28 15:26 | DVHHP2 ---
History of Present Illness Reason for Visit: Intractable body pain status post mechanical fall with hematuria History of Present Illness Richard Ray is a 74-year-old male with past medical history of renal cell carcinoma status post left nephrectomy on August 29, 2024, mesenteric mass, chronic low back pain, hiatal hernia, perforated ulcer with the abdominal surgery 20 years ago, depression, and kidney stones who presents to the ED with body pain status post mechanical fall that occurred this morning with hematuria. Patient reports that he slipped and fell on the floor which is of carpet while he is trying to go to the bathroom. He states he landed on his buttocks with no loss of consciousness. Patient's nephew Akira is at the bedside. He reports that patient's physician is Dr. Smith but his insurance changed to our facility and pending oncology referral for plan for chemo. Patient's nephew states that he was supposed to see our oncologist here at [facility] and be started on chemo here. 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 Patient states that he lives at home with his and also states that he uses marijuana. Patient's nephew Akira states that there is a large mass that is pushing against his spine and stomach which causes the pain. Patient's nephew also states that he had blood in his urine but no clots noted. Patient's nephew also presented to document while the patient was admitted at [facility]. Patient denies any chest pain, shortness of breath, fever, chills, lightheadedness, dizziness, weakness, abdominal pain, nausea, vomiting, diarrhea, melena, recent sick contacts, recent travels, or recent ingestion of spoiled food. Heme/Onc: Anemia NOS Psych: Depression Past Medical History Renal cell carcinoma with hematuria status post left nephrectomy on August 29, 2024 with pneumoperitoneum present on imaging Prostatomegaly Mesenteric mass Chronic low back pain Hiatal hernia Nephrolithiasis Past Surgical History: Other (perforated ulcer with abdominal surgery 20 years ago and left nephrectomy on August 29, 2024) Family History: Cancer, Other (Dad with emphysema and lung cancer. Mom with breast cancer.) Smoke: No ALCOHOL: none Drugs: Marijuana Lives: with Family Domestic Violence: Neg Review of Systems Genitourinary: Hematuria Musculoskeletal: other (Body pain) Allergies: Coded Allergies: NO KNOWN ALLERGIES (Unverified , 02/02/24) Exam Vital Signs Vital Signs Date Time Temp Pulse Resp B/P (MAP) Pulse Ox O2 Delivery O2 Flow Rate FiO2 10/28/24 14:53 70 16 112/58 10/28/24 12:07 98 Room Air* 0 21 10/28/24 11:17 97.8 97.8 General Appearance: Alert, Oriented X3, Cooperative, No acute distress HEENT: Atraumatic, PERRLA, EOMI, Mucous membr. moist/pink Respiratory: Normal air movement Cardiovascular: Regular rate, Normal S1, Normal S2 Abdominal: Normal bowel sounds, Soft Extremities: No clubbing, No cyanosis, Normal pulses Skin: No significant lesion Neuro: Normal speech, Normal tone, Sensation intact Psych/Mental Status: Mental status NL, Mood NL Labs/Xrays Labs Test 10/28/24 13:48 10/28/24 11:25 10/28/24 11:24 Range/Units Urine Color Yellow Yellow Urine Clarity Clear Clear Urine pH 5.5 5.0-9.0 Urine Specific [place] 1.020 1.001-1.035 Urine Protein Negative Negative Urine Ketones Negative Negative Urine Blood 2+ H Negative /uL Urine Nitrite Negative Negative Urine Bilirubin Negative Negative Urine Urobilinogen Normal Negative mg/dL Urine Leukocyte Esterase Negative Negative /uL Urine RBC 18 0 - 3 /hpf Urine Microscopic WBC 10 H 0-3 /HPF Urine Squamous Epithelial Cells Few <5 /hpf Urine Bacteria None seen None Seen /hpf Urine Glucose Normal Normal mg/dL White Blood Count 9.0 4.4-10.8 10^3/uL Red Blood Count 2.98 L 4.5-5.90 10^6/uL Hemoglobin 8.3 L 13.5-17.5 g/dL Hematocrit 25.5 L 41.0-53.0 % Mean Corpuscular Volume 85.7 80.0-100.0 fL Mean Corpuscular Hemoglobin 27.9 L 28.0-32.0 pg Mean Corpuscular Hemoglobin Concent 32.6 32.0-36.0 g/dL Red Cell Distribution Width 17.4 H 11.8-14.3 % Platelet Count 579 H 140-450 10^3/uL Mean Platelet Volume 6.3 L 6.9-10.8 fL Neutrophils (%) (Auto) 79.9 37.0-80.0 % Lymphocytes (%) (Auto) 10.6 10.0-50.0 % Monocytes (%) (Auto) 8.6 0.0-12.0 % Eosinophils (%) (Auto) 0.5 0.0-7.0 % Basophils (%) (Auto) 0.4 0.0-2.0 % Neutrophils # (Auto) 7.2 1.6-8.6 10 ^3/uL Lymphocytes # (Auto) 1.0 0.4-5.4 10 ^3/uL Monocytes # (Auto) 0.8 0-1.3 10 ^3/uL Eosinophils # (Auto) 0 0-0.8 10 ^3/uL Basophils # (Auto) 0 0-0.2 10 ^3/uL Nucleated Red Blood Cells 0.1 % Sodium Level 136 136-145 mmol/L Potassium Level 3.3 L 3.5-5.1 mmol/L Chloride Level 97 L 98-107 mmol/L Carbon Dioxide Level 32 H 20-31 mmol/L Anion Gap 7 5-15 Blood Urea Nitrogen 26 H 9-23 mg/dL Creatinine 0.92 0.700-1.30 mg/dL Glomerular Filtration Rate Calc 86 >90 mL/min BUN/Creatinine Ratio 28.3 H 10.0-20.0 Serum Glucose 118 H 74-106 mg/dL Calcium Level 9.6 8.7-10.4 mg/dL Total Bilirubin 0.3 0.2-1.0 mg/dL Aspartate Amino Transferase (AST) 21 13-40 U/L Alanine Aminotransferase (ALT) 16 7-40 U/L Alkaline Phosphatase 116 46-116 U/L Total Protein 6.7 5.7-8.2 g/dL Albumin 3.3 3.2-4.8 g/dL POC Glucose 109 H 70-106 mg/dl CT HEAD WITHOUT CONTRAST INDICATION: confusion, hx of high grade renal ca s/p nephr EXAM DATE: 10/28/2024 11:46 AM COMPARISON: None RADIATION DOSE: CTDIvol: 55.01 mGy, DLP: 1084.04 mGy*cm PROCEDURE: CT scans of the head were obtained from the vertex to the skull base. Sagittal and coronal reconstructions were provided. All CT scans at this medical facility are performed using dose modulation techniques as appropriate to a performed exam including the following: Automated exposure control was utilized; adjustment of the MA and/or KV according to patient size; and use of iterative reconstruction technique. FINDINGS: There is sulcal and ventricular prominence. The brainshows normal morphology and cm-white matter differentiation, without intracranial hemorrhage, extra-axial fluid collection, mass effect or acute large vessel infarct. The ventricles are normal in size. The basal cisterns are patent. The skull and visible facial bones are intact. The paranasal sinuses, mastoid air cells and middle ear cavities are well-aerated. The soft tissues of the scalp are unremarkable. IMPRESSION: No acute intracranial abnormality. EXAM: CT CHST AB PEL WO CON-NO IV/ORAL History: confusion and hematuria, hx of high grade renal ca s/p nephr Comparison Study: CT CT AB PEL WO CON-NO ORAL OR IV on DOS: 08/19/24 TECHNIQUE: Multidetector CT of the chest, abdomen and pelvis was performed from lower neck to pubic symphysis without the use of intravenous contrast. Coronal and sagittal multiplanar reformats were performed by the technologist on a separate workstation. Radiation Dose Information: CT Dose: CTDI volume is 9.5 mGy. Dose-length product is 679.1 mGy*cm FINDINGS: Lower neck: Normal thyroid. Lungs: Mild emphysema. No suspicious pulmonary nodule. Central airways: Patent. Pleura: Small left and trace right pleural effusion. No pneumothorax. Heart/Vascular Structures: The heart is normal in size. Low-density blood pool relative to the myocardium suggesting anemia. No pericardial effusion there is haziness of the mediastinal fat. Normal caliber thoracic aorta and main pulmonary artery. Coronary artery calcifications. Lymph Nodes: Bulky mediastinal lymphadenopathy measures 9.9 cm. Liver: The liver is normal in size. Limited evaluation for hepatic masses due to unenhanced CT. Gallbladder and Biliary Tree: Gallbladder is unremarkable. No biliary ductal dilatation. Spleen: Unremarkable. Pancreas: Unremarkable. Adrenal Glands: Unremarkable. Kidneys: The left kidney is surgically absent since the prior CT from August 2024. Small foci of gas in the left nephrectomy bed adjacent to surgical clips. Right kidney is unremarkable. Bladder: Unremarkable. Bowel: Stomach is fat and distended. No small bowel wall thickening or dilatation. Colonic diverticulosis without acute diverticulitis. Stool throughout the colon. Appendix not visualized. Peritoneum: There is ascites. Mesenteric edema. Lymphadenopathy: Bulky enlarged retroperitoneal lymph nodes left lateral to the aorta measuring 4.9 cm. Vasculature: The visualized abdominal aorta is normal in size and caliber. Evaluation of the vascular structures is limited due to lack of intravenous contrast. Pelvic Organs: Enlarged prostate. Musculoskeletal: No acute osseous abnormality. No suspicious bone lesion. Soft tissues: Body wall anasarca. IMPRESSION: 1. Limited study without intravenous contrast. 2. Mediastinal lymphadenopathy presumably metastatic. 3. Postsurgical changes from left nephrectomy. Pneumoperitoneum in the left renal fossa which may be postsurgical in nature. Please correlate with date of surgery. No fluid collection. 4. Metastatic retroperitoneal lymphadenopathy. 5. Prostatomegaly. 6. Body wall anasarca. Mesenteric edema which may reflect fluid overload. SEPSIS Sepsis Screen Date sepsis recognized/suspect: Oct 28, 2024 Time Sepsis recognized/suspect: 1118 Recent Procedure: No On Antibiotic Therapy: No Respiratory Rate >20: No Heart Rate >90: No Temp<36 C (96.8 F) or >38.3 C: No SBP <90 or MAP <65 mmHG: No New Acute Mental Status Change: No Is the patient on CPAP, BIPAP,: No IV fluid challenge completed?: No Physician Orders Psa Total+% Free (10/28/24 11:15) Head Without Contrast (10/28/24 11:15) Chst Ab Pel Wo Con-No Iv/Oral (10/28/24 11:15) Electrocardigram (10/28/24 11:32) D5w/Sod Chl 0.9%/Kcl 40meq (10/28/24 14:30) Vital Signs Date Time Temp Pulse Resp B/P (MAP) Pulse Ox O2 Delivery O2 Flow Rate FiO2 10/28/24 14:53 70 16 112/58 10/28/24 12:07 65 17 98 Room Air* 0 21 10/28/24 11:30 65 17 106/54 (71) 98 10/28/24 11:18 77 10/28/24 11:17 97.8 76 20 95/47 (63) 96 97.8 Laboratory Tests Test 10/28/24 11:25 White Blood Count 9.0 10^3/uL (4.4-10.8) Medications Medications Dose Ordered Sig/Vinnie Route Start Time Stop Time Status Last Admin Dose Admin Morphine Sulfate 2 mg ONCE ONCE IV 7/19/25 14:28 10/28/24 14:29 DC 10/28/24 14:53 2 MG Ondansetron HCl 4 mg ONCE ONCE IV 10/28/24 14:26 10/28/24 14:29 DC 10/28/24 14:52 4 MG Assessment/Plan Assessment/Plan Assessment Intractable body pain status post mechanical fall on buttocks Renal cell carcinoma with hematuria status post left nephrectomy on August 29, 2024 with pneumoperitoneum present on imaging Prostatomegaly Bilateral lower extremity edema rule out DVT Anemia likely due to kidney disease Hypokalemia Marijuana use History of mesenteric mass History of chronic low back pain History of hiatal hernia History of perforated ulcer with abdominal surgery 20 years ago History of depression History of kidney stones Assessment Admit to med surge Replete lytes Antiemetics Pain management UA Urine culture CT chest abdomen and pelvis noted EKG CT head noted PSA Finasteride Diuretics Bilateral lower extremity venous ultrasound BNP Chest x-ray Bilateral hip x-ray ordered Diet Home medications reconciled DVT prophylaxis-SCDs once confirmed no DVT PUD prophylaxis-PPIs Discussed plan of care with patient, patient's nephew, and nurse Oncology consult Counseled patient on cessation of marijuana use [id number] Behavior change smoking greater than 10 minutes about use of other options also gave option of nicotine patch [id number] Preventive counseling healthy eating habits, physical activity, and regular checkups Plan discussed with: Patient, Other (nephew) Date of Service: Oct 28, 2024 Billing Provider: FELIPA DE DIOS Common Visit Codes: [id number] INP/OBS CARE (HIGH) Secondary Visit Codes: [id number] COUNSELING IND, [id number]-[id number] CHNG SMOKING >10MIN FELIPA DE DIOS Oct 28, 2024 15:26
--- NOTE | 2024-10-28 15:47 | DVH ---
Bilateral lower extremity venous Doppler INDICATION: edema r/o dvt TECHNIQUE: Duplex venous sonography was performed with real-time and flow sensitive images submitted for evaluation. FINDINGS: Normal phasic venous flow. Veins are fully compressible. No filling defects. IMPRESSION: 1. No evidence of deep vein thrombosis.
--- NOTE | 2024-10-28 15:57 | DVH ---
AP portable chest CLINICAL INDICATION: r/o pna Comparison: CT chest done 10/28/2024 FINDINGS: The heart size is enlarged. Pleural effusions left greater than right. The cardiac silhouet te is slightly prominent due to pericardial effusion. IMPRESSION: 1. Bilateral pleural effusions, [id number]
--- NOTE | 2024-10-28 15:59 | DVH ---
EXAM: XY R HIP 1V XRAY INDICATION: s/p fall TECHNIQUE: 4 views of the right knee COMPARISON: None FINDINGS/IMPRESSION: No radiographic evidence of an acute osseous abnormality. There is no acute fracture, osseous malalig nment, or aggressive focal osseous lesion. There is no radiographically apparent joint space narrowin g.
--- NOTE | 2024-10-28 15:59 | DVH ---
EXAM: XY L HIP 1V XRAY INDICATION: s/p fall TECHNIQUE: 4 views of the left knee COMPARISON: None FINDINGS/IMPRESSION: No radiographic evidence of an acute osseous abnormality. There is no acute fracture, osseous malalig nment, or aggressive focal osseous lesion. There is no radiographically apparent joint space narrowin g.
[2024-10-28] MEDS: D5W/SOD CHL 0.9%/KCL 40MEQ 1,000 ML IV ONE (16:31)
[2024-10-28] MEDS: FUROSEMIDE 40 MG/4 ML VIAL IV SCH (16:36)
[2024-10-28] MEDS: FINASTERIDE 5 MG TAB PO SCH (16:38)
[2024-10-29 01:00] VITALS: BP 131/69; PULSE 77; RESP 17; TEMP 97.7; O2SAT 95
[2024-10-29] MEDS: HYDROcodone-ACET 5/325MG TAB PO PRN (02:28)
[2024-10-29 05:00] VITALS: BP 113/63; PULSE 93; RESP 18; TEMP 97.9; O2SAT 79
[2024-10-29 06:35] LABS: Hematocrit 22.5 % (41.0-53.0); Hemoglobin 7.4 g/dL (13.5-17.5); Mean Corpuscular Hemoglobin 28.1 pg (28.0-32.0); Mean Corpuscular Volume 85.4 fL (80.0-100.0); Nucleated Red Blood Cells % 0.0 %
[2024-10-29 06:57] LABS: Alanine Aminotransferase 11 U/L (7-40); Alkaline Phosphatase 111 U/L (46-116); Anion Gap 6 (5-15); BUN/Creatinine Ratio 23.9 (10.0-20.0); Blood Urea Nitrogen 22 mg/dL (9-23); Calcium 9.5 mg/dL (8.7-10.4); Chloride 99 mmol/L (98-107); Glucose 105 mg/dL (74-106); Potassium 3.9 mmol/L (3.5-5.1); Sodium 137 mmol/L (136-145); Total Protein 6.3 g/dL (5.7-8.2)
[2024-10-29 06:58] LABS: Albumin 3.1 g/dL (3.2-4.8); Bilirubin, Total 0.3 mg/dL (0.2-1.0); Carbon Dioxide 32 mmol/L (20-31)
[2024-10-29 09:00] VITALS: BP 115/64; PULSE 84; RESP 16; TEMP 98.2; O2SAT 95
[2024-10-29] MEDS: GABAPENTIN 300 MG CAP PO SCH (10:38)
[2024-10-29] MEDS: TAMSULOSIN HYDROCHLORIDE 0.4 MG CAP PO SCH (10:39)
[2024-10-29 13:00] VITALS: BP 133/75; PULSE 80; RESP 16; TEMP 98.4; O2SAT 94
--- NOTE | 2024-10-29 13:41 | DVHPN2 ---
Assessment/Plan Assessment/Plan progress note 74 yo M with RCC s/p nephrectomy with possible metastatic disease, BPH, admitted for interactable pain. 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 chronic diastolic heart failure pain management need to follow up hemeonc outpatient diuresis net neg goal goals of care discussion diet cardiac dvt ppx lovenox full code Plan discussed with: Patient My Orders Orders - VALE DUKE MD Procedure Category Date Status Time Acetaminophen Tablet PHA 10/29/24 Logged (Tylenol Tablet) 14:00 Oxycodone Er Tablet PHA 10/29/24 Logged (Oxycontin Er Tablet 22:00 Morphine Sulfate PHA 10/29/24 Logged Injection 13:30 Furosemide Injection PHA 10/30/24 Logged (Lasix Injection) 10:00 Date of Service: Oct 29, 2024 Billing Provider: VALE DUKE MD Common Visit Codes: [id number] INP/OBS CARE(HIGH) VALE DUKE MD Oct 29, 2024 13:41
[2024-10-29] MEDS: ACETAMINOPHEN 325 MG TAB PO SCH (14:00)
[2024-10-29 17:00] VITALS: BP 130/64; PULSE 81; RESP 14; TEMP 98.5; O2SAT 93
[2024-10-29 20:19] VITALS: BP 124/63; PULSE 84; RESP 16; RESP 18; TEMP 98.6; O2SAT 92
[2024-10-30] VITALS (8 sets, daily range): BP systolic 100–139; BP diastolic 55–73; PULSE 77–92; RESP 16–20; TEMP 97.7–99; O2SAT 90–96
[2024-10-30] MEDS: MORPHINE SULFATE INJ 2 MG/ml SYRG IV PRN (01:58)
[2024-10-30 07:32] LABS: Hematocrit 23.4 % (41.0-53.0); Hemoglobin 8.1 g/dL (13.5-17.5); Mean Corpuscular Hemoglobin 29.5 pg (28.0-32.0); Mean Corpuscular Volume 85.4 fL (80.0-100.0); Nucleated Red Blood Cells % 0.1 %
[2024-10-30 07:50] LABS: Alanine Aminotransferase 10 U/L (7-40); Alkaline Phosphatase 105 U/L (46-116); Anion Gap 7 (5-15); BUN/Creatinine Ratio 25.6 (10.0-20.0); Blood Urea Nitrogen 22 mg/dL (9-23); Calcium 9.6 mg/dL (8.7-10.4); Glucose 97 mg/dL (74-106); Magnesium 1.9 mg/dL (1.6-2.6); Potassium 3.7 mmol/L (3.5-5.1); Sodium 137 mmol/L (136-145); Total Protein 6.3 g/dL (5.7-8.2)
[2024-10-30 07:51] LABS: Bilirubin, Total 0.4 mg/dL (0.2-1.0)
[2024-10-30 07:52] LABS: Albumin 3.1 g/dL (3.2-4.8); Carbon Dioxide 33 mmol/L (20-31); Chloride 97 mmol/L (98-107)
[2024-10-30] MEDS ORDERED: FUROSEMIDE 20 MG TAB PO SCH (10:00)
[2024-10-30] MEDS: FUROSEMIDE 20 MG/2 ML VIAL IV SCH (10:08)
--- NOTE | 2024-10-30 10:22 | DVHINCON2 ---
Date of service: Oct 30, 2024 History of Present Illness HPI Patient is a 74-year-old gentleman who presented with generalized weakness and body pain. Has had frequent falls for few days before presentation. Reportedly had hematuria for 1 day prior to presentation. Patient is known to our practice from outside and before. Cardiology is involved for cardiac aspects of care. It is of note that the patient is found to have left kidney cancer and has had left nephrectomy ( August 2024). Reportedly, the patient has not started any chemotherapy yet. Home Meds Active Scripts Oxycodone HCl (Oxycodone Hydrochloride) 10 Mg Tab, 10 MG PO DAILY for 14 Days, #14 TAB Prov:VALE DUKE MD 10/30/24 Furosemide (Lasix) 40 Mg Tab, 40 MG PO DAILY for 7 Days, #7 TAB Prov:VALE DUKE MD 10/30/24 Prednisone (Prednisone) 20 Mg Tab, 40 MG PO DAILY for 4 Days, #8 MG 0 Refills Prov:KAT GRANT MD 08/22/24 Baclofen (Baclofen) 10 Mg Tab, 10 MG PO TID PRN for 10 Days, #30 TAB 0 Refills Prov:KAT GRANT MD 08/22/24 Dicyclomine Hcl (BENTYL CAPSULE) 10 Mg Cp, 1 CAP PO TIDPRN PRN for 7 Days, #30 CAP 0 Refills Prov:KAT GRANT MD 06/11/24 Hydrocodone-Acetaminophen (Hydrocodone Bitartrate/AC 10-325 mg) 1 Tab Tab, 1 TAB PO TIDPRN PRN for 6 Days, #18 TAB 0 Refills Prov:KAT GRANT MD 06/11/24 Reported Medications Gabapentin (Gabapentin) 300 Mg Cap, 1 CAP PO DAILY 10/28/24 Zolpidem Tartrate (Zolpidem Tartrate) 5 Mg Tab, 1 TAB PO QHSP PRN 10/28/24 Metronidazole (Metronidazole) 500 Mg Tab, 1 TAB PO TID 06/10/24 Ciprofloxacin HCl (Ciprofloxacin Hydrochlori) 500 Mg Tab, 1 TAB PO BID 06/10/24 Tamsulosin HCl (Tamsulosin Hydrochloride) 0.4 Mg Cap, 0.4 MG PO DAILY, CAP 06/05/24 Past Medical History Others Past medical history includes depression, kidney stone, BPH, low back pain, hiatal hernia, left kidney cancer and status post left nephrectomy. Has had left nephrectomy in August 2024 (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 he did have abdominal surgery many years ago for old perforated ulcer. He uses marijuana. Patient Family History: FH: breast cancer G8 MOTHER FH: emphysema G8 FATHER Smoker: Quit Alocohol: None Lives with: With family Review of Systems Constitutional: Weakness All Other Systems Fourteen point review of system was performed. Relevant findings as per above and as per HPI. Otherwise negative. H&P Exam Vital Signs Vital Signs Date Time Temp Pulse Resp B/P (MAP) Pulse Ox O2 Delivery O2 Flow Rate FiO2 10/30/24 08:43 98.3 80 16 126/64 (84) 96 98.3 10/29/24 20:00 Room Air* 0 21 General Appeara: Well developed Head Exam: Normal inspection Eye Exam: bilateral eye PERRL Mouth: Normal Inspection Pulmonary/Respiratory: Lungs clear Cardiovascular/Chest: Normal inspection, Regular rate Peripheral Pulses: 2+ carotid (R), 2+ carotid (L), 2+ femoral (R), 2+ femoral (L), 2+ dorsalis pedis (R), 2+ dorsalis pedis (L), 2+ Radial (R), 2+ Radial (L) Abdominal Exam: Normal bowel sounds, Soft Neuro/Mental St: Alert, Oriented Appearance: Appropriate appearance Eye contact/ Speech: Cooperative Labs/Xrays Labs Test 10/30/24 06:21 10/28/24 13:48 10/28/24 11:25 10/28/24 11:24 Range/Units White Blood Count 9.8 4.4-10.8 10^3/uL Red Blood Count 2.74 L 4.5-5.90 10^6/uL Hemoglobin 8.1 L 13.5-17.5 g/dL Hematocrit 23.4 L 41.0-53.0 % Mean Corpuscular Volume 85.4 80.0-100.0 fL Mean Corpuscular Hemoglobin 29.5 28.0-32.0 pg Mean Corpuscular Hemoglobin Concent 34.6 32.0-36.0 g/dL Red Cell Distribution Width 17.5 H 11.8-14.3 % Platelet Count 481 H 140-450 10^3/uL Mean Platelet Volume 6.5 L 6.9-10.8 fL Neutrophils (%) (Auto) 78.3 37.0-80.0 % Lymphocytes (%) (Auto) 9.7 L 10.0-50.0 % Monocytes (%) (Auto) 11.2 0.0-12.0 % Eosinophils (%) (Auto) 0.5 0.0-7.0 % Basophils (%) (Auto) 0.3 0.0-2.0 % Neutrophils # (Auto) 7.7 1.6-8.6 10 ^3/uL Lymphocytes # (Auto) 0.9 0.4-5.4 10 ^3/uL Monocytes # (Auto) 1.1 0-1.3 10 ^3/uL Eosinophils # (Auto) 0.1 0-0.8 10 ^3/uL Basophils # (Auto) 0 0-0.2 10 ^3/uL Nucleated Red Blood Cells 0.1 % Sodium Level 137 136-145 mmol/L Potassium Level 3.7 3.5-5.1 mmol/L Chloride Level 97 L 98-107 mmol/L Carbon Dioxide Level 33 H 20-31 mmol/L Anion Gap 7 5-15 Blood Urea Nitrogen 22 9-23 mg/dL Creatinine 0.86 0.700-1.30 mg/dL Glomerular Filtration Rate Calc 90 >90 mL/min BUN/Creatinine Ratio 25.6 H 10.0-20.0 Serum Glucose 97 74-106 mg/dL Calcium Level 9.6 8.7-10.4 mg/dL Phosphorus Level 3.1 2.4-5.1 mg/dL Magnesium Level 1.9 1.6-2.6 mg/dL Total Bilirubin 0.4 0.2-1.0 mg/dL Aspartate Amino Transferase (AST) 16 13-40 U/L Alanine Aminotransferase (ALT) 10 7-40 U/L Alkaline Phosphatase 105 46-116 U/L Total Protein 6.3 5.7-8.2 g/dL Albumin 3.1 L 3.2-4.8 g/dL Urine Color Yellow Yellow Urine Clarity Clear Clear Urine pH 5.5 5.0-9.0 Urine Specific [place] 1.020 1.001-1.035 Urine Protein Negative Negative Urine Ketones Negative Negative Urine Blood 2+ H Negative /uL Urine Nitrite Negative Negative Urine Bilirubin Negative Negative Urine Urobilinogen Normal Negative mg/dL Urine Leukocyte Esterase Negative Negative /uL Urine RBC 18 0 - 3 /hpf Urine Microscopic WBC 10 H 0-3 /HPF Urine Squamous Epithelial Cells Few <5 /hpf Urine Bacteria None seen None Seen /hpf Urine Glucose Normal Normal mg/dL B-Type Natriuretic Peptide 103.28 0-100 pg/mL POC Glucose 109 H 70-106 mg/dl Microbiology Date/Time Source Procedure Growth Status 10/28/24 13:48 Voided Urine Urine Culture - Preliminary Resulted Assessment/Plan Plan Patient is a 74-year-old gentleman who presented with generalized weakness and body pain. Has had frequent falls for few days before presentation. Reportedly had hematuria for 1 day prior to presentation. Patient is known to our practice from outside and before. Cardiology is involved for cardiac aspects of care. It is of note that the patient is found to have left kidney cancer and has had left nephrectomy ( August 2024). Reportedly, the patient has not started any chemotherapy yet. Not in acute distress. Mucosa is pink and wet. No carotid bruit. No goiter. Not using accessory muscles of breathing. Lungs are clear to auscultation. Cardiac: Regular, no thrill / gallop. Abdomen is soft. Bowel sound is positive. Extremities reveal 2+ edema bilateral. Past medical history includes depression, kidney stone, BPH, low back pain, hiatal hernia, left kidney cancer and status post left nephrectomy. Has had left nephrectomy in August 2024 (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 he did have abdominal surgery many years ago for old perforated ulcer. He uses marijuana. Echocardiogram of June 06, 2024 ( performed in [facility] ) reported ejection fraction of 60%, biatrial enlargement, right ventricular enlargement, and aortic root enlargement. Echocardiogram of September 25, 2024 ( performed in [facility]) revealed ejection fraction of 70%, grade 1 diastolic dysfunction, small pericardial effusion and right ventricular systolic pressure of 42 mm Hg Hemoglobin: 8.3 - 7.4 - 8.1 Creatinine: 0.92 - 0.92 - 0.86 Potassium: 3.3 - 3.9 - 3.7 BNP: 103.28 (within normal limit) CT of the chest/ abdomen/ pelvis revealed: IMPRESSION: 1. Limited study without intravenous contrast. 2. Mediastinal lymphadenopathy presumably metastatic. 3. Postsurgical changes from left nephrectomy. Pneumoperitoneum in the left renal fossa which may be postsurgical in nature. Please correlate with date of surgery. No fluid collection. 4. Metastatic retroperitoneal lymphadenopathy. 5. Prostatomegaly. 6. Body wall anasarca. Mesenteric edema which may reflect fluid overload. CT of the head revealed: IMPRESSION: No acute intracranial abnormality. Venous Doppler of lower extremities revealed: IMPRESSION: 1. No evidence of deep vein thrombosis. Left hip x-ray reported: FINDINGS/IMPRESSION: No radiographic evidence of an acute osseous abnormality. There is no acute fracture, osseous malalignment, or aggressive focal osseous lesion. There is no radiographically apparent joint space narrowing. Right hip x-ray revealed: No radiographic evidence of an acute osseous abnormality. There is no acute fracture, osseous malalignment, or aggressive focal osseous lesion. There is no radiographically apparent joint space narrowing. Chest x-ray revealed: IMPRESSION: 1. Bilateral pleural effusions, [id number] EKG revealed sinus rhythm with nonspecific T-wave changes Tele reveals sinus rhythm Patient is a 74-year-old gentleman presented with intractable body pain and generalized weakness. Does have history of metastatic kidney cancer. Presentation is not considered cardiac. Reportedly the patient has not been started on chemotherapy/further management of metastatic disease Metastatic disease Retroperitoneal lymphadenopathy, metastatic? Mediastinal lymphadenopathy, metastatic? Kidney cancer, history of Intractable pain Frequent fall Hematuria Hypokalemia BPH Hiatal hernia Cardiac suggestion for management: Manage on telemetry Follow-up electrolytes and kidney function tests and correct abnormalities. Potassium above 4 and magnesium above 2 Evaluation and management of pain as per primary team Consider hematology/oncology evaluation and follow-up Further evaluation and management (cardiac-mosley) as per above and clinical course Thank you for consultation A total of 75 minutes was spent reviewing the patient record, examining the patient, making a diagnostic and therapeutic plan, discussing this plan with medical personnel, following up on diagnostic studies and following the patient for clinical stability excluding any and all procedures. At least 50% of this time was spent in direct, [id number] contact. Thank you for allowing me to participate in this patient's care. Further recommendations will depend on patient's clinical course. Please do not hesitate to contact me if you have any questions or concerns. This medical document was created using electronic medical record system with [employer] computerized dictation system. Although this document has been carefully reviewed, there may still be some phonetic and typographical errors. These areas are purely typographical due to the imperfection of the software programs, and do not reflect any compromise in the patient's medical care. Plan discussed with: Patient, Other (nurse) LEO RICO MD Oct 30, 2024 10:22
[2024-10-30] MEDS ORDERED: FURO1TAB31 PO (13:24)
[2024-10-30] MEDS ORDERED: OXYC-998 PO (13:24)
--- NOTE | 2024-10-30 14:59 | DVHPN2 ---
Assessment/Plan Assessment/Plan progress note 74 yo M with RCC s/p nephrectomy with possible metastatic disease, BPH, admitted for interactable pain. discussed with family, will need outpatient hemeonc and pain management. have member services providied PCP f/u. plan to dc tomorrow. 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 chronic diastolic heart failure pain management need to follow up hemeonc outpatient diuresis net neg goal goals of care discussion diet cardiac dvt ppx lovenox full code Plan discussed with: Patient, Other My Orders Orders - VALE DUKE MD Procedure Category Date Status Time Pls Schedule Appt MEMBERSERV 10/30/24 Transmitted With Dvmgpcp 13:13 Pls Schedule Appt MEMBERSERV 10/30/24 Transmitted With Dvmgpcp 13:14 Discharge DISCHARGE 10/30/24 Transmitted 13:24 Date of Service: Oct 30, 2024 Billing Provider: VALE DUKE MD Common Visit Codes: [id number] INP/OBS CARE(HIGH) VALE DUKE MD Oct 30, 2024 14:59
[2024-10-31 01:00] VITALS: BP 128/67; PULSE 86; RESP 16; TEMP 98.2; O2SAT 90
[2024-10-31 01:06] LABS: Prostate Specific Antigen 4.4 ng/mL (0.0-4.0)
[2024-10-31 05:00] VITALS: BP 118/58; PULSE 98; RESP 17; TEMP 98.1; O2SAT 90
--- NOTE | 2024-10-31 06:38 | DVHPN2 ---
Progress Note - Dictate Date Seen: Oct 31, 2024 Medical Necessity Reason Pt with a Central, PICC or Fol: No vital signs Vital Sign Date Time Temp Pulse Resp B/P (MAP) Pulse Ox O2 Delivery O2 Flow Rate FiO2 10/31/24 06:17 98 16 118/58 10/31/24 05:00 98.1 90 98.1 10/30/24 20:00 Room Air* 0 21 Total Intake and Output 10/30/24 10/30/24 10/31/24 15:00 23:00 07:00 Intake Total 240 ml 1040 ml 150 ml Output Total 950 ml 850 ml Balance 240 ml 90 ml -700 ml medications Current Medications Medications Dose Ordered Sig/Vinnie Route Start Time Stop Time Status Last Admin Dose Admin Ondansetron HCl 4 mg Q4HP PRN IV 10/28/24 15:00 Tamsulosin HCl 0.4 mg DAILY PO 10/29/24 10:00 10/30/24 10:10 0.4 MG Finasteride 5 mg DAILY PO 10/28/24 15:15 10/30/24 10:09 5 MG Gabapentin 300 mg DAILY PO 10/29/24 10:00 10/30/24 10:08 300 MG Acetaminophen 650 mg Q8HR PO 10/29/24 14:00 10/30/24 14:36 650 MG Oxycodone HCl 10 mg Q12HR PO 10/29/24 22:00 10/30/24 10:09 10 MG Morphine Sulfate 2 mg Q4HPRN PRN IV 10/29/24 13:30 10/31/24 06:17 2 MG Furosemide 20 mg DAILY IV 10/30/24 10:00 10/30/24 10:08 20 MG laboratory and microbiology Laboratory Tests 10/30/24 06:21 Test 10/30/24 06:21 Range/Units Serum Glucose 97 74-106 mg/dL Assessment/Plan Patient is a 74-year-old gentleman who presented with generalized weakness and body pain. Has had frequent falls for few days before presentation. Reportedly had hematuria for 1 day prior to presentation. Patient is known to our practice from outside and before. Cardiology is involved for cardiac aspects of care. It is of note that the patient is found to have left kidney cancer and has had left nephrectomy ( August 2024). Reportedly, the patient has not started any chemotherapy yet. Not in acute distress. Mucosa is pink and wet. No carotid bruit. No goiter. Not using accessory muscles of breathing. Lungs are clear to auscultation. Cardiac: Regular, no thrill / gallop. Abdomen is soft. Bowel sound is positive. Extremities reveal 2+ edema bilateral. Past medical history includes depression, kidney stone, BPH, low back pain, hiatal hernia, left kidney cancer and status post left nephrectomy. 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 he did have abdominal surgery many years ago for old perforated ulcer. He uses marijuana. Echocardiogram of June 06, 2024 ( performed in [facility] ) reported ejection fraction of 60%, biatrial enlargement, right ventricular enlargement, and aortic root enlargement. Echocardiogram of September 25, 2024 ( performed in [facility]) revealed ejection fraction of 70%, grade 1 diastolic dysfunction, small pericardial effusion and right ventricular systolic pressure of 42 mm Hg Hemoglobin: 8.3 - 7.4 - 8.1 Creatinine: 0.92 - 0.92 - 0.86 Potassium: 3.3 - 3.9 - 3.7 BNP: 103.28 (within normal limit) CT of the chest/ abdomen/ pelvis revealed: IMPRESSION: 1. Limited study without intravenous contrast. 2. Mediastinal lymphadenopathy presumably metastatic. 3. Postsurgical changes from left nephrectomy. Pneumoperitoneum in the left renal fossa which may be postsurgical in nature. Please correlate with date of surgery. No fluid collection. 4. Metastatic retroperitoneal lymphadenopathy. 5. Prostatomegaly. 6. Body wall anasarca. Mesenteric edema which may reflect fluid overload. CT of the head revealed: IMPRESSION: No acute intracranial abnormality. Venous Doppler of lower extremities revealed: IMPRESSION: 1. No evidence of deep vein thrombosis. Left hip x-ray reported: FINDINGS/IMPRESSION: No radiographic evidence of an acute osseous abnormality. There is no acute fracture, osseous malalignment, or aggressive focal osseous lesion. There is no radiographically apparent joint space narrowing. Right hip x-ray revealed: No radiographic evidence of an acute osseous abnormality. There is no acute fracture, osseous malalignment, or aggressive focal osseous lesion. There is no radiographically apparent joint space narrowing. Chest x-ray revealed: IMPRESSION: 1. Bilateral pleural effusions, [id number] EKG revealed sinus rhythm with nonspecific T-wave changes Tele reveals sinus rhythm Patient is a 74-year-old gentleman presented with intractable body pain and generalized weakness. Does have history of metastatic kidney cancer. Presentation is not considered cardiac. Reportedly the patient has not been started on chemotherapy/further management of metastatic disease Metastatic disease Retroperitoneal lymphadenopathy, metastatic? Mediastinal lymphadenopathy, metastatic? Kidney cancer, history of Intractable pain Frequent fall Hematuria Hypokalemia BPH Hiatal hernia Cardiac suggestion for management: Manage on telemetry Follow-up electrolytes and kidney function tests and correct abnormalities. Potassium above 4 and magnesium above 2 Evaluation and management of pain as per primary team Consider hematology/oncology evaluation and follow-up Further evaluation and management (cardiac-mosley) as per above and clinical course A total of 55 minutes was spent reviewing the patient record, examining the patient, making a diagnostic and therapeutic plan, discussing this plan with medical personnel, following up on diagnostic studies and following the patient for clinical stability excluding any and all procedures. At least 50% of this time was spent in direct, [id number] contact. Thank you for allowing me to participate in this patient's care. Further recommendations will depend on patient's clinical course. Please do not hesitate to contact me if you have any questions or concerns. This medical document was created using electronic medical record system with [employer] computerized dictation system. Although this document has been carefully reviewed, there may still be some phonetic and typographical errors. These areas are purely typographical due to the imperfection of the software programs, and do not reflect any compromise in the patient's medical care. Plan discussed with: Patient, Other (nurse) LEO RICO MD Oct 31, 2024 06:38
[2024-10-31 06:47] VITALS: BP 118/58; PULSE 98; RESP 16
--- NOTE | 2024-10-31 13:33 | DVHDS2 ---
Discharge Summary Date of Admission Oct 28, 2024 at 14:50 Date of Discharge: Oct 30, 2024 Labs/Diagnostic Data: Laboratory Results Test 10/30/24 06:21 10/28/24 13:48 10/28/24 11:25 10/28/24 11:24 White Blood Count 9.8 10^3/uL (4.4-10.8) Red Blood Count 2.74 10^6/uL (4.5-5.90) Hemoglobin 8.1 g/dL (13.5-17.5) Hematocrit 23.4 % (41.0-53.0) Mean Corpuscular Volume 85.4 fL (80.0-100.0) Mean Corpuscular Hemoglobin 29.5 pg (28.0-32.0) Mean Corpuscular Hemoglobin Concent 34.6 g/dL (32.0-36.0) Red Cell Distribution Width 17.5 % (11.8-14.3) Platelet Count 481 10^3/uL (140-450) Mean Platelet Volume 6.5 fL (6.9-10.8) Neutrophils (%) (Auto) 78.3 % (37.0-80.0) Lymphocytes (%) (Auto) 9.7 % (10.0-50.0) Monocytes (%) (Auto) 11.2 % (0.0-12.0) Eosinophils (%) (Auto) 0.5 % (0.0-7.0) Basophils (%) (Auto) 0.3 % (0.0-2.0) Neutrophils # (Auto) 7.7 10 ^3/uL (1.6-8.6) Lymphocytes # (Auto) 0.9 10 ^3/uL (0.4-5.4) Monocytes # (Auto) 1.1 10 ^3/uL (0-1.3) Eosinophils # (Auto) 0.1 10 ^3/uL (0-0.8) Basophils # (Auto) 0 10 ^3/uL (0-0.2) Nucleated Red Blood Cells 0.1 % Sodium Level 137 mmol/L (136-145) Potassium Level 3.7 mmol/L (3.5-5.1) Chloride Level 97 mmol/L (98-107) Carbon Dioxide Level 33 mmol/L (20-31) Anion Gap 7 (5-15) Blood Urea Nitrogen 22 mg/dL (9-23) Creatinine 0.86 mg/dL (0.700-1.30) Glomerular Filtration Rate Calc 90 mL/min (>90) BUN/Creatinine Ratio 25.6 (10.0-20.0) Serum Glucose 97 mg/dL (74-106) Calcium Level 9.6 mg/dL (8.7-10.4) Phosphorus Level 3.1 mg/dL (2.4-5.1) Magnesium Level 1.9 mg/dL (1.6-2.6) Total Bilirubin 0.4 mg/dL (0.2-1.0) Aspartate Amino Transferase (AST) 16 U/L (13-40) Alanine Aminotransferase (ALT) 10 U/L (7-40) Alkaline Phosphatase 105 U/L (46-116) Total Protein 6.3 g/dL (5.7-8.2) Albumin 3.1 g/dL (3.2-4.8) Urine Color Yellow (Yellow) Urine Clarity Clear (Clear) Urine pH 5.5 (5.0-9.0) Urine Specific [place] 1.020 (1.001-1.035) Urine Protein Negative (Negative) Urine Ketones Negative (Negative) Urine Blood 2+ /uL (Negative) Urine Nitrite Negative (Negative) Urine Bilirubin Negative (Negative) Urine Urobilinogen Normal mg/dL (Negative) Urine Leukocyte Esterase Negative /uL (Negative) Urine RBC 18 /hpf (0 - 3) Urine Microscopic WBC 10 /HPF (0-3) Urine Squamous Epithelial Cells Few /hpf (<5) Urine Bacteria None seen /hpf (None Seen) Urine Glucose Normal mg/dL (Normal) B-Type Natriuretic Peptide 103.28 pg/mL (0-100) Free Prostate Specific Antigen 0.31 ng/mL (N/A) Percent Free Prostate Specific Ag 7.0 % (.) Prostate Specific Antigen Total 4.4 ng/mL (0.0-4.0) POC Glucose 109 mg/dl (70-106) Other Laboratory Tests 10/30/24 06:21 Brief Hx & Hospital Course: 74 yo M with RCC s/p nephrectomy with possible metastatic disease, BPH, admitted for interactable pain. started on pain management. CT showed lymphadenopathy. patient nephew reported having issue with seeing specialties outpatient. connected with member services regarding that. stable to DC. need to f/u with heme onc. Condition at Discharge: Good Final Diagnosis/Problems List interactable pain, likely cancer pain RCC s/p nephrectomy lymphadenopathy BPH chronic pain anemia likely chornic disease chronic diastolic heart failure Discharge Disposition: Home Discharge Instruct/Medications Diet: Cardiac 2g Na,low cholest Activity: No Restrictions, As Tolerated Follow Up/Referral: PCP heme onc pain managment cardio Scheduled Furosemide (Lasix), 40 MG PO DAILY Gabapentin (Gabapentin), 1 CAP PO DAILY, (Reported) Oxycodone HCl (Oxycodone Hydrochloride), 10 MG PO DAILY Tamsulosin HCl (Tamsulosin Hydrochloride), 0.4 MG PO DAILY, (Reported) Scheduled PRN Baclofen (Baclofen), 10 MG PO TID PRN Dicyclomine Hcl (Bentyl Capsule), 1 CAP PO TIDPRN PRN Zolpidem Tartrate (Zolpidem Tartrate), 1 TAB PO QHSP PRN, (Reported) Discontinued Medications Ciprofloxacin HCl (Ciprofloxacin Hydrochlori), 1 TAB PO BID, (Reported) Hydrocodone-Acetaminophen (Hydrocodone Bitartrate/AC 10-325 mg), 1 TAB PO TIDPRN PRN Metronidazole (Metronidazole), 1 TAB PO TID, (Reported) Prednisone (Prednisone), 40 MG PO DAILY Discharge Statement: "Patient was advised to return to the ER or call 911 if any headaches, dizziness, shortness of breath, chest pain, abdominal pain, bleeding, fevers, or worsening of medical condition. Patient was counseled about treatment plan, medications, possible side effects, patientverbalized understanding. All questions were answered to the best of my ability. This discharge took greater then 30 minutes in planning, reviewing documentation, counseling the patient, and discussing with other team members." ASSESSMENT ASSESSMENT Assessment interactible pain likely cancer pain RCC s/p nephrectomy with widespread lymphadenopathy Date of Service: Oct 31, 2024 Billing Provider: VALE DUKE MD Common Visit Codes: [id number] DISCH DAY >30min VALE DUKE MD Oct 31, 2024 13:33
--- NOTE | 2024-10-31 17:35 | ECG ---
[facility] Test Date: 2024-10-28 Test Time: 11:18:06 Pat Name: KARLA CHRISTIANSON Department: er Room: 0278 A Gender: M Talent Advisor: saundra : [id number] Requested By: SHITAL SALVADOR Order Number: [id number] Reading MD: Roby Shannon Measurements Intervals [place] Rate: 77 P: 84 [place]: 136 QRS: 85 QRSD: 96 T: 119 QT: 371 QTc: 420 Interpretive Statements Sinus rhythm Borderline right axis deviation Nonspecific T abnormalities, inferior leads Electronically Signed On 11-01-2024 15:49:30 PDT by Roby Shannon Please click the below link to view image of tracing.
== END 2024-10-31 15:30 | disposition home or self-care (01) | DRG 948 ==
LOC: ER 10:59 → OVERFLOW 14:50 → WEST WING 23:54
PROVIDERS: ADMIT Student in an Organized Health Care Education/Training Program; ATTEND Student in an Organized Health Care Education/Training Program
DX: G89.3 Neoplasm related pain (acute) (chronic) (principal); I50.32 Chronic diastolic (congestive) heart failure; E87.6 Hypokalemia; D64.9 Anemia, unspecified; N40.0 Benign prostatic hyperplasia without lower urinary tract symptoms; E86.0 Dehydration; E87.5 Hyperkalemia; F32.A Depression, unspecified; K44.9 Diaphragmatic hernia without obstruction or gangrene; Z85.528 Personal history of other malignant neoplasm of kidney; Z79.899 Other long term (current) drug therapy; Z80.1 Family history of malignant neoplasm of trachea, bronchus and lung; Z80.3 Family history of malignant neoplasm of breast; Z82.5 Family history of asthma and other chronic lower respiratory diseases; Z87.442 Personal history of urinary calculi; Z87.891 Personal history of nicotine dependence; Z90.5 Acquired absence of kidney
CPT/HCPCS: 36415; 70450; 71045; 71250; 73501; 74176; 80053; 81001; 82962; 83735; 83880; 84100; 84154; 85025; 87086; 93005; 93970; 96374; 96375; G0378; J2405